=== PATIENT | female | born 1985 | race Caucasian/White ===

== ENCOUNTER 2023-11-06 13:48 | Inpatient (IN) | payer OTHER, SELFPAY ==
[2023-11-05 08:28] VITALS: BP 156/94
--- NOTE | 2023-11-05 08:42 | ED.GENMED ---
History of Present Illness
<Eloise Chaves PUPPET MAKER - Last Filed: 11/05/23 17:34>
General
Chief Complaint: Abdominal Symptoms
Source: patient
Exam Limitations: none
Time Seen by Provider: 11/05/23 08:42
Nursing documentation reviewed up to this point in time: agreed with
Travel History
Have you had any contact with someone who has COVID-19?: No
Do you have any symptoms of coronavirus? Fever > 100 degrees, chills, cough, shortness of breath, sore throat, loss of taste or smell, muscle aches, or headache?: No
History of Present Illness
History of Present Illness:
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
diarrhea past 2 days. Diarrhea has subsided but n/v persists.
She has been unable to hold anything down except two small 'Rapid Rehydration' Gatorade fluid last p.m.
Last emesis 45 min ago
Last diarrhea 2 days ago.
Patient denies fever or chills. Denies abdominal pain. Denies chest pain or trouble breathing.
[employer] RECRUITER was 271
Past History
<Eloise Chaves PUPPET MAKER - Last Filed: 11/05/23 17:34>
Past History
ED Past Medical History: Asthma, IDDM, Psychiatric and Other (Stopped Methadone 2 years ago, denies illicit drug use)
Patient has exhibited threatening behavior?: Yes
Date of threatening behavior? (updated with each occurrence): 07/17/19 (making threats to staff and police)
Social History
Tobacco: Non-smoker
Alcohol: None
Drug: Former user
Personal: Single
Living: with family
Employment: Not employed
Review of Systems
<Eloise V. Day, PUPPET MAKER - Last Filed: 11/05/23 17:34>
Review of Systems
Allergies reviewed?: Yes
All Other Systems: ROS reviewed and negative except as documented in HPI and ROS
Constitutional: Denies fever
Respiratory: Denies cough or trouble breathing
Cardiac: Denies chest pain
ABD/GI: Reports nausea, vomiting, diarrhea and anorexia; Denies abdominal pain, bloody stools or black stools
: Reports other (currently menstruating so urine is pink tinged); Denies dysuria, flank pain, difficulty voiding or urgency
Musculoskeletal: Reports no symptoms
Skin: Reports no symptoms
Neurological: Reports no symptoms
Phy Exam
<Eloise Chaves, PUPPET MAKER - Last Filed: 11/05/23 17:34>
Physical Exam
Physical Exam:
GENERAL: No acute distress. A&Ox3.
CONSTITUTIONAL: Afebrile.
EYES:Clear, conjunctivae normal
ENMT: moist mucus membranes, Pharynx nl
RESPIRATORY: Regular respirations, nonlabored, lungs clear.
CARDIOVASCULAR: Regular rate and rhythm, tachycardia Rate 116, no murmurs, no rubs.
GI: Soft, nontender, normal BS
MUSCULOSKELETAL: Moves with ease. Well perfused. Ambulating well independently
SKIN: Warm, dry, pink
PSYCH: Normal mood and affect. Well kept, interactive and appropriate
NEUROLOGIC: Awake, alert and oriented. No focal neurological deficits.
Course
<Eliose Chaves, PUPPET MAKER - Last Filed: 11/05/23 17:34>
Orders/Labs/Results
Orders:
Orders
11/05/23 08:54
Bedside Glucose- Treatment Q1H
IV Insert/Care/Rem.- Treatment PRN
0.9% Sodium Chloride 1000 ml [Nss] 1,000 ml IV BOLUS
0.9% Sodium Chloride 1000 ml [Nss] 1,000 ml IV BOLUS
11/05/23 08:56
Ondansetron Injectable [Zofran] 4 mg IV NOW STA
11/05/23 09:25
Complete Blood Count/With Diff Urgent
Urinalysis Urgent
Date Specimen was Collected: 11/05/23
Time Specimen was Collected: 09:16
Urine Microscopic Urgent
Date Specimen was Collected: 11/05/23
Time Specimen was Collected: 09:16
11/05/23 09:26
Comprehensive Metabolic Panel Urgent
HCG, Serum Qualitative Screen Urgent
Comment: ADD ON
11/05/23 09:29
Add On- LAB Urgent
Tests Added?: serum qualitative HCG
11/05/23 09:35
Lorazepam [Ativan] 1 mg IV NOW STA
11/05/23 10:37
0.9% Sodium Chloride 1000 ml [Nss] 1,500 ml IV NOW STA
Diphenhydramine [Benadryl] 12.5 mg IV NOW STA
Prochlorperazine [Compazine] 10 mg IV NOW STA
11/05/23 11:04
POTASSIUM PHOSPHATE 1mEq=0.7mM [Potassium Phosphate] 20 meq 0.9% Sodium Chloride 250 ml [Nss] 250 ml IV NOW
11/05/23 17:15
C difficile Antigen & Toxins Urgent
NGOZI Source: Feces/Stool
Specimen Description:
Date Specimen was Collected: 11/05/23
Time Specimen was Collected: 17:13
Stool Culture Routine
NGOZI Source: Feces/Stool
Specimen Description:
Date Specimen was Collected: 11/05/23
Time Specimen was Collected: 17:13
11/05/23 17:29
Add On- LAB Urgent
Tests Added?: stool WBC, stool norovirus
Abnormal Lab Results
11/05/23 11/05/23 11/05/23
09: 09:26 12:55
WBC 18.4 H 10^3/uL
(4.8-10.8)
MCH 31.7 H pg
(27.0-31.0)
Abs Immat Gran (auto) 0.1 H 10^3/uL
(0-0.05)
Absolute Neuts (auto) 15.6 H 10^3/uL
(1.4-6.5)
Absolute Monos (auto) 1.2 H 10^3/uL
(0.1-0.6)
Immature Gran % 0.7 H %
(0-0.5)
Neutrophils % 84.5 H %
(42.2-75.2)
Lymphocytes % 7.8 L %
(20.5-51.1)
Potassium 3.3 L mmol/L
(3.5-5.1)
Chloride 97 L mmol/L
(98-107)
BUN 27 H mg/dl
(7-17)
Glucose 251 H mg/dl
(70-99)
Urine Ketones Trace A
(Negative)
Urine Occult Blood 4+ A
(Negative)
Urine Bilirubin 1+ A
(Negative)
Ur Leukocyte Esterase Trace A
(Negative)
Urine RBC >100 A /HPF
(0-2)
Urine Bacteria Moderate A
(Negative)
Urine Glucose 1+ A
(Negative)
Urine Albumin 2+ A
(Neg - Trace)
POC Glucose 147 H mg/dl
(70-99)
11/05/23 09:25
11/05/23 09:26
Vital Signs
Initial and Last Documented VS:
Initial Vital Signs
Temp Pulse Resp BP Pulse Ox
98.2 F 115 18 156/94 96
11/05/23 08:28 11/05/23 08:28 11/05/23 08:28 11/05/23 08:28 11/05/23 08:28
Last Documented Vital Signs
Temp Pulse Resp BP Pulse Ox
98.2 F 110 16 154/71 98
11/05/23 08:28 11/05/23 16:40 11/05/23 16:40 11/05/23 16:40 11/05/23 16:40
General Operations Agent consulted with Physician
General Operations Agent consulted with physician?: Yes
Name of Physician Consulted: Ilya
<Nicholas Caraballo, - Last Filed: 11/05/23 11:56>
Orders/Labs/Results
Orders:
Orders
11/05/23 08:54
Bedside Glucose- Treatment Q1H
IV Insert/Care/Rem.- Treatment PRN
0.9% Sodium Chloride 1000 ml [Nss] 1,000 ml IV BOLUS
0.9% Sodium Chloride 1000 ml [Nss] 1,000 ml IV BOLUS
11/05/23 08:56
Ondansetron Injectable [Zofran] 4 mg IV NOW STA
11/05/23 09:25
Complete Blood Count/With Diff Urgent
Urinalysis Urgent
Date Specimen was Collected: 11/05/23
Time Specimen was Collected: 09:16
Urine Microscopic Urgent
Date Specimen was Collected: 11/05/23
Time Specimen was Collected: 09:16
11/05/23 09:26
Comprehensive Metabolic Panel Urgent
HCG, Serum Qualitative Screen Urgent
Comment: ADD ON
11/05/23 09:29
Add On- LAB Urgent
Tests Added?: serum qualitative HCG
11/05/23 09:35
Lorazepam [Ativan] 1 mg IV NOW STA
11/05/23 10:37
0.9% Sodium Chloride 1000 ml [Nss] 1,500 ml IV NOW STA
Diphenhydramine [Benadryl] 12.5 mg IV NOW STA
Prochlorperazine [Compazine] 10 mg IV NOW STA
11/05/23 11:04
POTASSIUM PHOSPHATE 1mEq=0.7mM [Potassium Phosphate] 20 meq 0.9% Sodium Chloride 250 ml [Nss] 250 ml IV NOW
11/05/23 17:15
C difficile Antigen & Toxins Urgent
NGOZI Source: Feces/Stool
Specimen Description:
Date Specimen was Collected: 11/05/23
Time Specimen was Collected: 17:13
Stool Culture Routine
NGOZI Source: Feces/Stool
Specimen Description:
Date Specimen was Collected: 11/05/23
Time Specimen was Collected: 17:13
11/05/23 17:29
Add On- LAB Urgent
Tests Added?: stool WBC, stool norovirus
Abnormal Lab Results
11/05/23 11/05/23 11/05/23
09:25 09:26 12:55
WBC 18.4 H 10^3/uL
(4.8-10.8)
MCH 31.7 H pg
(27.0-31.0)
Abs Immat Gran (auto) 0.1 H 10^3/uL
(0-0.05)
Absolute Neuts (auto) 15.6 H 10^3/uL
(1.4-6.5)
Absolute Monos (auto) 1.2 H 10^3/uL
(0.1-0.6)
Immature Gran % 0.7 H %
(0-0.5)
Neutrophils % 84.5 H %
(42.2-75.2)
Lymphocytes % 7.8 L %
(20.5-51.1)
Potassium 3.3 L mmol/L
(3.5-5.1)
Chloride 97 L mmol/L
(98-107)
BUN 27 H mg/dl
(7-17)
Glucose 251 H mg/dl
(70-99)
Urine Ketones Trace A
(Negative)
Urine Occult Blood 4+ A
(Negative)
Urine Bilirubin 1+ A
(Negative)
Ur Leukocyte Esterase Trace A
(Negative)
Urine RBC >100 A /HPF
(0-2)
Urine Bacteria Moderate A
(Negative)
Urine Glucose 1+ A
(Negative)
Urine Albumin 2+ A
(Neg - Trace)
POC Glucose 147 H mg/dl
(70-99)
11/05/23 09:25
11/05/23 09:26
Vital Signs
Initial and Last Documented VS:
Initial Vital Signs
Temp Pulse Resp BP Pulse Ox
98.2 F 115 18 156/94 96
11/05/23 08:28 11/05/23 08:28 11/05/23 08:28 11/05/23 08:28 11/05/23 08:28
Last Documented Vital Signs
Temp Pulse Resp BP Pulse Ox
98.2 F 110 16 154/71 98
11/05/23 08:28 11/05/23 16:40 11/05/23 16:40 11/05/23 16:40 11/05/23 16:40
<Eloise Chaves PUPPET MAKER - Last Filed: 11/05/23 17:34>
MDM/Problems Addressed
Differential Diagnosis Includes:
Gastroenteritis, DKA, dehydration
MDM/Problems Addressed:
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
diarrhea past 2 days. Diarrhea has subsided but n/v persists.
She has been unable to hold anything down except two small 'Rapid Rehydration' Gatorade fluid last p.m.
Last emesis 45 min ago
Last diarrhea 2 days ago.
Patient denies fever or chills. Denies abdominal pain. Denies chest pain or trouble breathing.
[employer] MANAG[employer] RECRUITER was 271
11/05/2023 1014 AM
CBC: WBC 18.4
CMP: BUN 27, glucose 251, IV fluids infusing most likely fluid depleted and reactive to vomiting
hCG negative
UA with greater than 100 red blood cells, patient currently menstruating, no sign of infection
11/05/2023 1022 AM
In to reevaluate pt. Pt getting chills. Temp 99.2. Remains nauseous, no further vomiting. OOB and ambulated to with steady gait.
Has had 2L IVFs so far. Her glucometer reading BS [address] Caraballo who evaluated pt.
Another 1500 ml IVFs ordered, Compazine and Benadryl ordered
Will continue to observe
11/05/2023 1306 PM
Patient still unable to hold anything down, continues with intermittent vomiting
Plan: Admit: Gastroenteritis, dehydration intractable nausea and vomiting, in diabetic patient.
Hospitalist notified of admission.
<Eloise Chaves, PUPPET MAKER - Last Filed: 11/05/23 17:34>
*Critical Care Note
Total Time (30-74mins, 75-104mins- exclusive of procedures): Not Applicable
ED Attending Note
<Eloise Chaves, PUPPET MAKER - Last Filed: 11/05/23 17:34>
-
Portions of this chart may have been created with voice recognition software.� Occasional wrong word or��sound alike� substitutions may have occurred due to the inherent limitations of voice recognition software.
<Nicholas Caraballo DO - Last Filed: 11/05/23 11:56>
ED Attending Note
Patient seen and examined by attending physician: Yes
I performed the substantive portion of visit, reviewed & personally made and approve the management plan that is documented in note by myself or ERIC.: Yes
ED Attending Note:
Patient is a 38-year-old female who presents to the emergency department nausea, vomiting and diarrhea that started 2 nights ago. Patient's had about 5 episodes of liquidy stool but no hematochezia or mucus. Patient just returned from [place].
Patient has no abdominal pain but persistent nausea and vomiting. Patient is very thirsty. Patient is a diabetic after having an episode of gestational diabetes. Patient takes insulin only. Patient admits to fever and chills. Patient denies
nasal congestion or cough. Patient denies symptoms. Physical exam the patient looks in significant distress with dry mucous membranes. Heart is regular lungs are clear. Abdomen has very vague mild tenderness without guarding or rebound.
Extremities show no cyanosis or edema. Goal will be to rehydrate the patient. Believe this to be a gastroenteritis. More vomiting than diarrhea. Patient does not appear to be acidotic but does have a significant white count. If the patient is
nausea and vomiting cannot be controlled we will need to admit the patient.
Discharge Plan
Departure
Patient Disposition: Admit
Date of Disposition: 11/05/23
Time of Disposition: 13:06
Admit to: Med/Surg
Presentation/result/management discussed w/ accepting MD/DO: Hospitalist
Condition: Fair
Discharge Problem:
Intractable nausea and vomiting, Diabetes mellitus, insulin dependent (IDDM), controlled, Gastroenteritis
Prescriptions:
No Action
Motegrity 2 mg Tablet
2 mg PO DAILY
Patient Comments:
11/05/2023, per pt., took this med. this morning but believes to have thrown it up.
atorvastatin 10 mg Tablet
10 mg PO DAILY
Patient Comments:
11/05/2023, per pt., took this med. this morning but believes to have thrown it up.
insulin aspart U-100 100 unit/mL Solution
0 unit SC .VIA PUMP
Patient Comments:
11/05/2023, per pt., she puts 200 units into her pump and replaces it every 2-3 days. Pt. states to have changed her pump roughly 1-2 days ago and says that the pod expires tomorrow.
albuterol sulfate [Ventolin HFA] 90 mcg/actuation Hfa Aerosol Inhaler
2 puff INHALATION R Q4HPRN PRN (Reason: sob)
pregabalin 150 mg Capsule
150 mg PO BID
Patient Comments:
11/05/2023, per pt., took this med. this morning but believes to have thrown it up.
cholecalciferol (vitamin D3) 125 mcg (5,000 unit) Tablet
125 mcg PO DAILY
Patient Comments:
11/05/2023, per pt., took this vitamin this morning but believes to have thrown it up.
melatonin 10 mg Tablet Extended Release
10 mg PO HSPRN PRN (Reason: sleep)
Abilify Maintena 400 mg suspension,extended rel syring
400 mg IM Q3W
Patient Comments:
11/05/2023, per pt., next dose is scheduled for tomorrow.
Medical Marijuana
0 inh inhalation BIDPRN PRN (Reason: mild pain/sleep/anxiety)
Patient Comments:
11/05/2023, pt. smokes flower form BIDPRN for anxiety, mild pain, and sleep. Pt. states that she smokes a 'blunt' and is unsure of the amount of puffs she takes per use.
Referrals:
Josephine Mcdowell CRNP [Family Provider] -
Interventions
Interventions:
*Risk Screen - Suicide Last Done: 11/05/23 09:12
*General Assessment Last Done: 11/05/23 09:12
*Neglect/Abuse Screening Last Done: 11/05/23 09:12
ED- Fall Risk Assessment Last Done: 11/05/23 09:12
*ED COVID-19 Vaccine History Last Done: 11/05/23 08:28
AC-Rvxzrh-Ihwfrhcrop Assessment Last Done: 11/05/23 09:12
[2023-11-05] MEDS: NSS 1000 IV ×3 (09:33→19:44)
[2023-11-05] MEDS: ZOFRAN 4 MG IV ×2 (09:34→19:47)
[2023-11-05] MEDS: ATIVAN 1 MG IV (09:39)
[2023-11-05 09:48] LABS: Urine Albumin 2+ (Neg - Trace); Urine Bilirubin 1+ (Negative); Urine Character Slightly Cloudy (Clear); Urine Color Amber; Urine Glucose 1+ (Negative); Urine Ketone Trace (Negative); Urine Leukocyte Trace (Negative); Urine Nitrite Negative (Negative); Urine Occult Blood 4+ (Negative); Urine Urobilinogen Negative (Neg - 1+)
[2023-11-05 09:59] LABS: % Basophils 0.2 % (0-2); % Eosinophils 0.1 % (0-6); % Immature Granulocytes 0.7 % (0-0.5); % Lymphocytes 7.8 % (20.5-51.1); % Monocytes 6.7 % (1.7-9.3); % Neutrophils 84.5 % (42.2-75.2); Absolute Immature Granulocytes 0.1 10^3/uL (0-0.05); Absolute Lymphocytes 1.4 10^3/uL (1.2-3.4); Absolute Monocytes 1.2 10^3/uL (0.1-0.6); Absolute Neutrophils 15.6 10^3/uL (1.4-6.5); Hematocrit 39.6 % (37.0-47.0); Hemoglobin 14.2 g/dL (12.0-16.0); Mean Corp Hgb Conc. 35.9 g/dL (33.0-37.0); Mean Corpuscular Hgb 31.7 pg (27.0-31.0); Mean Corpuscular Volume 88.4 fL (81.0-99.0); Mean Platelet Volume 10.3 fL (7.4-10.4); Nucleated Red Blood Cells % 0 %; Platelet Count 300 10^3/uL (130-400); Red Blood Cell Count 4.48 10^6/uL (4.20-5.40); White Blood Cell Count 18.4 10^3/uL (4.8-10.8)
[2023-11-05 10:00] LABS: ALT (SGPT) 35 U/L (0-35); AST (SGOT) 36 U/L (14-36); Albumin 4.6 g/dl (3.5-5.0); Alkaline Phosphatase 99 U/L (38-126); Blood Urea Nitrogen 27 mg/dl (7-17); Calcium 9.9 mg/dl (8.4-10.2); Carbon Dioxide 30 mmol/L (22-30); Chloride 97 mmol/L (98-107); Glucose 251 mg/dl (70-99); Potassium 3.3 mmol/L (3.5-5.1); Sodium 136 mmol/L (135-145); Total Bilirubin 1.2 mg/dl (0.2-1.3); Total Protein 7.4 g/dl (6.3-8.2); eGFR > 60.00
[2023-11-05 10:02] LABS: Urine Squamous Cell 16-20 /LPF (Few)
[2023-11-05 10:04] LABS: Urine Bacteria Moderate (Negative); Urine Red Blood Cell >100 /HPF (0-2)
[2023-11-05 10:04] LABS: HCG, Serum Qualitative Screen Negative
[2023-11-05] MEDS: NSS 1500 ML IV (11:12)
[2023-11-05] MEDS: COMPAZINE 10 MG IV ×2 (11:13→18:22)
[2023-11-05] MEDS: BENADRYL 12.5 MG IV (11:13)
[2023-11-05] MEDS: POTASSIUM PHOSPHATE 254.545500000000004 MEQ IV (11:49)
[2023-11-05 12:32] VITALS: BP 146/87
[2023-11-05 12:56] LABS: Glucose - Point of Care 147 mg/dl (70-99)
[2023-11-05 16:40] VITALS: BP 154/71
--- NOTE | 2023-11-05 18:05 | HPS.HSE ---
Addendum entered and electronically signed by Jr Calloway MD 11/05/23 20:35:
I independently saw and examined the patient on November 05, 2023..
The MAUREEN's note was reviewed and I agree with the note.
Comment:
38yo F with a past medical history of Asthma, IDDM, DKA, Gestational Diabetes Mellitus, [place]'s Syndrome (follows Dr. Regulo Mcdowell at [facility]), Hyperlipidemia, Irritable Bowel Syndrome, history of marijuana use, Anxiety and Bipolar
Disorder who presented to the emergency department c/o intractable nausea, vomiting and non-bloody diarrhea for a few days. She states she began experiencing diarrhea few days to maybe a week ago, then diarrhea stopped for 2 days (and once today),
and then had vomiting starting 2 days ago. She recently was in the [facility]; she reported [place] and states three other women came in to do the same while she was in there. She states that she had diarrhea
the first day but has only had diarrhea once today and states it has mostly resolved. However, the nausea and vomiting has persisted. She states she felt feverish, but did not take her temperature. She admits to experiencing something similar last
February 2023 as a result of DKA but states it was not to this degree. She admits to medical cannabis use and states that she had not been using cannabis since the onset of her symptoms as she felt unwell.
Vital Signs
Afebrile
Tachycardic
BP okay
RR okay
Oxygen saturation 98% on room air
Physical Exam
General: Comfortable and Conversant
HEENT: Normocephalic, Atraumatic
Respiratory: Clear and Non Labored Respirations Bilaterally
Cardiac: S1/S2 and Regular Rhythm
GI: Soft and Non Tender. Positive bowel sounds
Skin: Warm and Dry
Neuro: Awake, Alert, Oriented and Nonfocal/grossly intact
Psych: Calm
Assessment/Plan
Nausea, Vomiting and Diarrhea
Concern for Gastroenteritis
Tachycardia
-Check stool studies, norovirus, c diff, giardia and cryptosporidium
-Continue IVFs
-Allow clear liquids by mouth
-Continue anti-emetics
-Check EKG for QTc interval and tachycardia
-Tachycardia likely from dehydration and poor oral intake recently/acute illness
-Hold home Motegrity
Hypokalemia, secondary to GI loses
-Replace potassium
-Recheck level in AM
-Check magnesium
Insulin-Dependent Diabetes Mellitus
History of Diabetic Ketoacidosis
History of Gestational Diabetes Mellitus
-Continue insulin pump with continuous glucose monitor
-Accuchecks
Neuropathy
-Continue Lyrica
Bipolar Disorder
Anxiety
-Patient receives monthly Abilify injections
Hyperlipidemia
-Hold statin until able to tolerate food
Asthma - continue home breathing treatments as needed
[place]'s Syndrome (follows Dr. Regulo Mcdowell at [facility])
Irritable Bowel Syndrome
History of medical marijuana use
DVT Prophylaxis: SCDs
Code Status: Full Code
Original Note:
Family Physician
-
Family Physician: FAITH Lott
Chief Complaint
-
Nausea and Vomiting
History of Present Illness
Pt is a 38yo F with a past medical history of IDDM and Bipolar Disorder who is presenting to the ED c/o intractable nausea, vomiting and non-bloody diarrhea x 2 days. She states she began experiencing diarrhea and vomiting 2 days ago. She reports
[place] and states three other women came in to do the same while she was in there. She states that she had diarrhea the first day but has only had diarrhea once today and states it has mostly resolved. However, the
nausea and vomiting has persisted. She states she felt feverish, but did not take her temperature. She admits to experiencing something similar last February 2023 as a result of DKA but states it was not to this degree. She admits to medical cannabis
use and states that she had not been using cannabis since the onset of her symptoms as she felt unwell.
Medical History
Past Medical History
Past Medical History: Reports Other
Additional Past Medical History:
Diabetes Mellitus, Insulin Dependent
Neuropathy
Hyperlipidemia
Bipolar Disorder
Asthma
Hx Opioid Use Disorder
Past Surgical History: Reports None
Social History
Tobacco: Non-smoker
Alcohol: None
Drug: Former User (Prior heroin abuse, previously on methadone) and Marijuana (Medical )
Family History
Family History: Not pertinent
Allergies / Home Medications
Allergies reflects when Allergies were last updated in [facility].
Home Medications with original date entered in [facility]
Allergy/Medication List:
Allergies
Allergy/AdvReac Type Severity Reaction Status Date / Time
bupropion [From Wellbutrin] Allergy Rash Verified 11/05/23 08:30
montelukast [From Singulair] Allergy Rash Verified 11/05/23 08:30
Home Medications
prucalopride 2 mg tablet (Motegrity) 2 mg PO DAILY Gastrointestinal Issue 02/19/23
Medical Marijuana 0 inh inhalation BIDPRN PRN mild pain/sleep/anxiety 11/05/23
albuterol sulfate 90 mcg/actuation aerosol inhaler (Ventolin HFA) 2 puff inhalation R Q4HPRN PRN sob 11/05/23
aripiprazole 400 mg suspension, extended rel.intramuscular syringe (Abilify Maintena) 400 mg IM Q3W Mental Health/Anxiety 11/05/23
atorvastatin 10 mg tablet 10 mg PO DAILY High Cholesterol 11/05/23
cholecalciferol (vitamin D3) 125 mcg (5,000 unit) tablet 125 mcg PO DAILY Supplement 11/05/23
insulin aspart U-100 100 unit/mL subcutaneous solution 0 unit SC .VIA PUMP Diabetes 11/05/23
melatonin 10 mg tablet,extended release 10 mg PO HSPRN PRN sleep 11/05/23
pregabalin 150 mg capsule 150 mg PO BID Pain 11/05/23
Review of Systems
-
A 12 point ROS was completed and negative except as noted: Yes
Constitutional: Reports Fever
Respiratory: Denies Cough or Trouble Breathing
Abdomen/GI: Reports See HPI
Physical Exam
Vital Signs
Vital Signs
Temp Pulse Resp BP Pulse Ox
98.2 F 110 16 154/71 98
11/05/23 08:28 11/05/23 16:40 11/05/23 16:40 11/05/23 16:40 11/05/23 16:40
Physical Exam
General: Comfortable and Conversant
HEENT: NormoCephalic, Anicteric and Atraumatic
Respiratory: Clear and Non Labored Respirations
Cardiac: S1/S2 and Regular Rhythm
GI: Soft and Non Tender
Rectal: Deferred by Provider
Skin: Warm and Dry
Neuro: Awake, Alert, Oriented and Nonfocal/grossly intact
Psych: Calm
Laboratory Results
-
11/05/23 09:25
11/05/23 09:26
Laboratory Results
Total Bilirubin 1.2 mg/dl (0.2-1.3) 11/05/23 09:26
AST 36 U/L (14-36) 11/05/23 09:26
ALT 35 U/L (0-35) 11/05/23 09:26
Alkaline Phosphatase 99 U/L (38-126) 11/05/23 09:26
Data Reviewed
-
Lab Data: Labs Reviewed by me
Impression/Plan
-
Gastroenteritis
-Check stool studies, norovirus, c diff, giardia and cryptosporidium
-Continue IVFs
-Allow clear liquids
-Continue anti-emetics
Hypokalemia, secondary to GI loses
-Replace potassium
-Recheck level in AM
Insulin-Dependent Diabetes Mellitus
-Continue insulin pump with continuous glucose monitor
Neuropathy
-Continue Lyrica
Bipolar Disorder
-Patient receives monthly Abilify injections
Hyperlipidemia
-Hold statin until able to tolerate food
DVT proph: SCDs
Code Status: Full Code
[2023-11-05 18:57] LABS: Amphetamines Negative (Negative); Barbiturates Negative (Negative); Benzodiazepines Negative (Negative); Buprenorphine Negative (Negative); Cocaine Negative (Negative); Marijuana Positive (Negative); Methadone Negative (Negative); Methamphetamines Negative (Negative); Opiates Negative (Negative); Phencyclidine Negative (Negative); Tricyclic Antidepressants Negative (Negative)
[2023-11-05 18:58] LABS: COVID-19 Antigen Negative (Negative)
[2023-11-05 19:28] VITALS: BMI 28.9
[2023-11-05 19:30] VITALS: BP 138/82
[2023-11-05] MEDS: NSS (PRESERVATIVE FREE) 10 ML IV (19:47)
[2023-11-05] MEDS: PROTONIX IV 40 MG IV (19:48)
[2023-11-05] MEDS: BENADRYL 6.25 MG IV (21:10)
[2023-11-05 21:11] LABS: Glucose - Point of Care 150 mg/dl (70-99)
[2023-11-05 23:00] VITALS: BP 165/94
[2023-11-05] MEDS: COMPAZINE 5 MG IV (23:02)
[2023-11-05] MEDS: MORPHINE SULFATE 1 MG IV (23:03)
[2023-11-05] MEDS: LYRICA PO (23:13)
[2023-11-06] VITALS (7 sets, daily range): BP systolic 133–177; BP diastolic 76–98
[2023-11-06] MEDS: NSS 1000 IV ×3 (03:30→22:27)
[2023-11-06] MEDS: ZOFRAN 4 MG IV ×2 (03:34→09:30)
--- NOTE | 2023-11-06 04:28 | PTCARENOTE ---
Patient recieved in bed from ED at 1929. Patient nauseous and vomiting, medicated per NOV. Pt oriented to room and call kee
[2023-11-06 07:20] LABS: Glucose - Point of Care 162 mg/dl (70-99)
[2023-11-06 07:25] LABS: Hematocrit 36.4 % (37.0-47.0); Hemoglobin 13.5 g/dL (12.0-16.0); Mean Corp Hgb Conc. 37.1 g/dL (33.0-37.0); Mean Corpuscular Hgb 33.1 pg (27.0-31.0); Mean Corpuscular Volume 89.2 fL (81.0-99.0); Mean Platelet Volume 10.2 fL (7.4-10.4); Platelet Count 271 10^3/uL (130-400); Red Blood Cell Count 4.08 10^6/uL (4.20-5.40); Red Cell Dist. Width 11.8 % (11.5-14.5); White Blood Cell Count 10.1 10^3/uL (4.8-10.8)
[2023-11-06 07:47] LABS: Chloride 102 mmol/L (98-107); Potassium 3.5 mmol/L (3.5-5.1); Sodium 136 mmol/L (135-145)
[2023-11-06 07:58] LABS: Blood Urea Nitrogen 13 mg/dl (7-17); Calcium 8.5 mg/dl (8.4-10.2); Carbon Dioxide 23 mmol/L (22-30); Estimated Creatinine Clearance > 125 ml/min; Glucose 145 mg/dl (70-99); Magnesium 1.9 mg/dl (1.6-2.3); eGFR > 60.00
[2023-11-06] MEDS: NSS (PRESERVATIVE FREE) 10 ML IV (08:21)
[2023-11-06] MEDS: LYRICA 150 MG PO ×2 (08:21→20:21)
[2023-11-06] MEDS: PROTONIX IV 40 MG IV (08:21)
[2023-11-06 08:56] LABS: Glycohemoglobin (HgbA1c) 9.3 % (4.0-5.6)
--- NOTE | 2023-11-06 09:51 | W.PN.HOSP.TC ---
Today's Communication/Plan
-
Still with significant nausea
Consulted GI, recommendations appreciated
Consulted psychiatry for patient's severe anxiety, recommendations appreciated
Assessment / Plan
Assessment / Plan
Physical Exam
General: Comfortable and Conversant
HEENT: Normocephalic, Atraumatic
Respiratory: Clear and Non Labored Respirations Bilaterally
Cardiac: S1/S2 and Regular Rhythm
GI: Soft and Non Tender. Positive bowel sounds
Skin: Warm and Dry
Neuro: Awake, Alert, Oriented and Nonfocal/grossly intact
Psych: Calm
Assessment/Plan
Nausea, Vomiting and Diarrhea
Concern for Gastroenteritis
Tachycardia
-Follow stool studies, norovirus, c diff, giardia and cryptosporidium
-Continue IVFs
-Allow clear liquids by mouth
-Continue anti-emetics
-Check EKG for QTc interval: QTc is 442
-Tachycardia likely from dehydration and poor oral intake recently/acute illness
-Hold home Motegrity
-Consulted GI, recommendations appreciated
Hypokalemia, secondary to GI loses
-Replaced potassium
-Recheck level in AM
-Monitor magnesium
Insulin-Dependent Diabetes Mellitus on Insulin Pump
History of Diabetic Ketoacidosis
History of Gestational Diabetes Mellitus
-Consulted Diabetes [employer]PERVISOR MILL, recommendations appreciated
-Accuchecks
Neuropathy
-Continue Lyrica
Bipolar Disorder
Anxiety
-Patient receives monthly Abilify injections
-Consulted psychiatry, recommendations appreciated
Hyperlipidemia
-Hold statin until able to tolerate food
Asthma - continue home breathing treatments as needed
[place]'s Syndrome (follows Dr. Regulo Mcdowell at [place] [facility])
Irritable Bowel Syndrome
History of medical marijuana use
DVT Prophylaxis: SCDs
Code Status: Full Code
Anticipated Discharge: 24 - 48 hours
Subjective/Interval History
-
Date of Service: November 06, 2023
Patient was seen and examined. Per patient's nurse, patient had an episode of severe anxiety this morning. Patient continues to have significant nausea but no diarrhea overnight.
Objective Data
-
Labs:
Laboratory Results
11/06/23
06:49
WBC 10.1
Hgb 13.5
Hct 36.4 L
Plt Count 271
Sodium 136
Potassium 3.5
Chloride 102
Carbon Dioxide 23
BUN 13
Creatinine 0.5 L
Glucose 145 H
Calcium 8.5
Vital Signs:
Vital Signs
Temp Pulse Resp BP Pulse Ox
98.2 F 90 18 133/83 99
11/06/23 08:13 11/06/23 08:13 11/06/23 08:13 11/06/23 08:13 11/06/23 08:13
I&O
11/05/23 11/06/23 11/07/23
06:59 06:59 06:59
Intake Total 2640 / 2640
Output Total 250 / 250
Balance 2390 / 2390
[2023-11-06] MEDS: COMPAZINE 5 MG IV ×2 (10:50→20:23)
--- NOTE | 2023-11-06 11:15 | PN.DE.MGMTRT ---
Insulin Management
- -
11/06/2023 Diabetes Management Consult
Patient admitted with N/V/D for 2 days. PMH asthma, neuropathy, type 1 diabetes, bipolar, panic disorder, PTSD, borderline personality disorder, cushings synd. Prior to admission was using Omni Pod 5 with novolog and DexCom G6. Pod has run out
of insulin, patient does not have additional pod. A1C on admission 9.3%, cr .5, egfr > 60. Currently not taking anything PO.
POD from our office not compatible. Will start lantus 35 units now and daily with moderate corrective insulin Q 6 hours. If patient begins to eat please change to AC.
Diabetes History
- -
Type of Diabetes: 1
Pre-Admission Diabetes Regimen
11/06/23
06:49
Creatinine 0.5 L
Lab Results
Hemoglobin A1c 9.3 % (4.0-5.6) H 11/06/23 06:49
Insulin Pump Settings
IP Diabetes Regimen
11/05/23 11/05/23 11/06/23
12:55 21:10 06:49
Glucose 145 H
POC Glucose 147 H 150 H
11/06/23
07:19
Glucose
POC Glucose 162 H
Patient Education
[2023-11-06 11:34] LABS: Glucose - Point of Care 201 mg/dl (70-99)
--- NOTE | 2023-11-06 12:46 | PTCARENOTE ---
Patient emotionally labile, tearful stating 'i'm sick of feeling sick' . Has anxiety, needs much TLC. has dry heaves , received iv zofran and then IV Compazine as ordered with some relief. IV NS running at 125cc/hr. Call kee in reach .
[2023-11-06] MEDS: LANTUS 0.349999999999999978 UNITS SC (13:08)
[2023-11-06] MEDS: NOVOLOG FLEXPEN-MODERATE RESISTANCE 3 UNITS SC (13:10)
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
--- NOTE | 2023-11-06 15:40 | CM ---
Patient seen bedside.
IA completed.
Patient lives with patients and son in a multi story home, she is on the 3rd floor.
Patient independent prior to admission without assistive devices.
Patient drives.
Patient with no hx of VN.
Has been inpatient psychiatric in the past.
PCP:Dr Mcdowell
Pharmacy: [facility]
Plan: Home, no needs anticipated.
[2023-11-06] MEDS: ATIVAN 1 MG PO ×2 (15:44→20:21)
--- NOTE | 2023-11-06 15:49 | CON.GI ---
Addendum entered and electronically signed by Demetrio Duran MD 11/06/23 18:37:
I saw and examined the patient.
The PA's note was reviewed and I agree with the note.
Comment:
The patient is a 38 year old female with h/o IDDM (prior DKA), neuropathy, asthma, bipolar disorder, hypercholesterolemia, recently diagnosis benjamin syndrome, IBS,�and marijuana use who p/w nausea, vomiting, and diarrhea. She had recently traveled
to [place]. On admission hbg A1C 9.3 and noted with insulin pump empty.� Pt also noted with anxiety attack with psych evaluation. She also admits to daily Marijuana use.� She does have IBS with chronic constipation on Motegrity. In review of
records hx admission in January 2023 with [facility] with nausea, vomiting, diarrhea, metabolic acidosis and DKA.�
Impression / Rec:
1. Nausea/vomiting, diarrhea - multiple possible etiologies; possible sick contact which would raise concern for gastroenteritis (she admits to eating at resort and being in bathroom when other visitors were vomiting), diabetic gastroparesis (HbA1c
9.3), cannabis hyperemesis syndrome vs other. Agree with supportive mx, antiemetics, optimize glucose control, and advancing diet as tolerated. Will follow.
Original Note:
Consultation
-
Date/Time Consultation Requested: 11/06/23 1445
Date/Time Consultation Performed: 11/06/23 1545
Requesting Provider: Jr Calloway MD
Performing Provider: FAITH Mcclure, Demetrio Duran MD
Reason for Consultation: nausea.vomiting, diarrhea
Medical History
Chief Complaint / HPI
Chief Complaint: nausea/vomiting and diarrhea
History of Present Illness:
Pt is a 38yo with hx IDDM with prior DKA, neuropathy, asthma, bipolar disorder, hypercholesterolemia, recently diagnosis benjamin syndrome, IBS, marijuana use with recent travel to [place] with onset of nausea, vomiting, and diarrhea. Symptoms were
associated with abdominal pain. On admission hbg A1C 9.3 and noted with insulin pump empty. Pt also noted with anxiety attack with psych evaluation. Pt states prior to travel was on antibiotic for UTI. She admits to eating at resort and being in
bathroom when other visitors were vomiting. She began Sunday and returned Sunday with symptoms. No hx prior episodes on past. She also admits to daily Marijuana use.
She denies issues with odynophagia, dysphagia, hematuria, blood or black in stools. She does have IBS with chronic constipation on Motegrity. In review of records hx admission in January 2023 with [facility] with nausea, vomiting, diarrhea, metabolic
acidosis and DKA. There was also concern for marijuana induced hyperemesis. Pt has also had prior anorectal manometry with poor rectal push and increased anal sphincter pressure with pseudodefecation maneuver. was recommended pelvic floor PT and
fiber supplement.
Past Medical History
Past Medical History: Asthma, Hypercholesterolemia, IDDM, Psychiatric (bipolar disorder, PTSD, borderline personality disorder) and Other (neuropathy, benjamin syndrome, IBS)
Social History
Tobacco: Non-Smoker
Alcohol: None
Drug: Former User and Other (prior methadone use several years ago)
Living: With Family (parents and son)
Employment: Not Employed
Family History
Family History: Other (no family hx GI issues )
Allergies / Home Medications
Allergy/AdvReac Type Severity Reaction Status Date / Time
bupropion [From Wellbutrin] Allergy Rash Verified 11/05/23 08:30
montelukast [From Singulair] Allergy Rash Verified 11/05/23 08:30
Medication Instructions Recorded
prucalopride 2 mg tablet 2 mg PO DAILY Gastrointestinal 02/19/23
(Motegrity) Issue
Medical Marijuana 0 inh inhalation BIDPRN PRN mild 11/05/23
pain/sleep/anxiety
albuterol sulfate 90 mcg/actuation 2 puff inhalation R Q4HPRN PRN sob 11/05/23
aerosol inhaler (Ventolin HFA)
aripiprazole 400 mg suspension, 400 mg IM Q3W Mental Health/Anxiety 11/05/23
extended rel.intramuscular syringe
(Eloise Gillis)
atorvastatin 10 mg tablet 10 mg PO DAILY High Cholesterol 11/05/23
cholecalciferol (vitamin D3) 125 125 mcg PO DAILY Supplement 11/05/23
mcg (5,000 unit) tablet
insulin aspart U-100 100 unit/mL 0 unit SC .VIA PUMP Diabetes 11/05/23
subcutaneous solution
melatonin 10 mg tablet,extended 10 mg PO HSPRN PRN sleep 11/05/23
release
pregabalin 150 mg capsule 150 mg PO BID Pain 11/05/23
Review of Systems
-
History Source: Patient
Constitutional: Reports Weight Gain
EENT: Reports No Symptoms
Respiratory: Reports No Symptoms
Cardiac: Reports No Symptoms
Abdomen/GI: Reports Abdominal Pain, Nausea, Vomiting, Diarrhea and Constipated (by history )
: Reports No Symptoms
Musculoskeletal: Reports No Symptoms
Skin: Reports No Symptoms
Neurological: Reports Weakness
Endocrine: Reports No Symptoms
Hematologic/Lymphatic: Reports No Symptoms
Vital Signs
Temp Pulse Resp BP Pulse Ox
98.2 F 78 16 146/76 98
11/06/23 15:18 11/06/23 15:18 11/06/23 15:18 11/06/23 15:18 11/06/23 15:18
Physical Exam
Exam
General: Well Developed, Well Nourished and No Apparent Distress
HEENT: Normocephalic and Anicteric
Respiratory: Clear
Cardiac: Regular Rhythm
GI: Soft, Non Distended and Tender (minimal epigastric pain)
Genito-urinary: No Costovertebral Tender
Musculoskeletal: No Clubbing and No Cyanosis
Skin: Warm and Dry
Neuro: Awake, Alert and AO x 3
Psych: Calm
Results
WBC 10.1 10^3/uL (4.8-10.8) 11/06/23 06:49
Hgb 13.5 g/dL (12.0-16.0) 11/06/23 06:49
Hct 36.4 % (37.0-47.0) L 11/06/23 06:49
MCV 89.2 fL (81.0-99.0) 11/06/23 06:49
Plt Count 271 10^3/uL (130-400) 11/06/23 06:49
Absolute Neuts (auto) 15.6 10^3/uL (1.4-6.5) H 11/05/23 09:25
Sodium 136 mmol/L (135-145) 11/06/23 06:49
Potassium 3.5 mmol/L (3.5-5.1) 11/06/23 06:49
Chloride 102 mmol/L (98-107) 11/06/23 06:49
Carbon Dioxide 23 mmol/L (22-30) 11/06/23 06:49
BUN 13 mg/dl (7-17) 11/06/23 06:49
Creatinine 0.5 mg/dL (0.6-1.0) L 11/06/23 06:49
Calcium 8.5 mg/dl (8.4-10.2) 11/06/23 06:49
Total Bilirubin 1.2 mg/dl (0.2-1.3) 11/05/23 09:26
AST 36 U/L (14-36) 11/05/23 09:26
ALT 35 U/L (0-35) 11/05/23 09:26
Alkaline Phosphatase 99 U/L (38-126) 11/05/23 09:26
Diagnostic Image Results:
01/[address] Abd/pelvis W Iv Cont
IMPRESSION: No definitive acute pathology of the abdomen or pelvis identified. No oral contrast on board. This limits evaluation of bowel. The transverse colon and left colon is not distended. Colitis cannot be excluded.
3 mm appendicolith. No secondary findings to suggest acute appendicitis.
A preliminary report was provided by [facility].
Prior GI Procedures:
EGD: none
Colonoscopy: none
Assessment / Plan
-
Pt is a 38yo with hx IDDM with prior DKA, neuropathy, asthma, bipolar disorder, hypercholesterolemia, recently diagnosis benjamin syndrome, IBS, marijuana use with recent travel to [place] with onset of nausea, vomiting, and diarrhea. Symptoms were
associated with abdominal pain. On admission hbg A1C 9.3 and noted with insulin pump empty. Pt also noted with anxiety attack with psych evaluation. Pt states prior to travel was on antibiotic for UTI. She admits to eating at resort and being in
bathroom when other visitors were vomiting. She began Sunday and returned Sunday with symptoms. No hx prior episodes on past. She also admits to daily Marijuana use. She does have IBS with chronic constipation on Motegrity. In review of
records hx admission in January 2023 with [facility] with nausea, vomiting, diarrhea, metabolic acidosis and DKA. There was also concern for marijuana induced hyperemesis. Pt has also had prior anorectal manometry with poor rectal push and increased anal
sphincter pressure with pseudodefecation maneuver. was recommended pelvic floor PT and fiber supplement.
-nausea/vomiting with abdominal pain
-diarrhea
-recent travel to [place]
-IDDM with hbg A1C 9.3 on admission hx prior DKA
-medical marijuana use
-IBS with constipation on Motegrity
-hx abnormal anal manometry
-recent benjamin syndrome
-recent abx for UTI
-leukocytosis now resolved
other medical problems:
-neuropathy
-asthma
-bipolar disorder
-hypercholesterolemia
-IBS
PLAN:
etiology of symptoms related to acute infectious gastroenteritis with travel to resort in [place], gastroparesis with poorly controlled DM, Marijuana hyperemesis vs other
agree with check stool studies
antiemetics
stressed need for good glucose control
if recurrent symptoms consider formal OP gastric emptying studies
counseled on side effect of nausea/vomiting with marijuana use
clear diet advance as tolerated to low fat, small meals
monitor bowel function was on motegrity prior to admission
OP follow up rescheduled for February with missed appt today in GI office
-
-
Thank you for consultation and allowing me to participate in the patient's care. Please call the [facility] physician during the after hours with any questions or concerns.
[2023-11-06 16:56] LABS: Glucose - Point of Care 151 mg/dl (70-99)
[2023-11-06 17:08] LABS: Glucose - Point of Care 140 mg/dl (70-99)
[2023-11-06] MEDS: NOVOLOG FLEXPEN-MODERATE RESISTANCE SC (17:10)
[2023-11-06] MEDS: MELATONIN 10 MG PO (20:22)
[2023-11-06] MEDS: COGENTIN 0.5 MG PO (20:22)
[2023-11-06 21:49] LABS: Glucose - Point of Care 148 mg/dl (70-99)
[2023-11-07 03:25] VITALS: BP 173/103
[2023-11-07] MEDS: NSS 1000 IV ×3 (05:24→23:26)
[2023-11-07 06:20] VITALS: BP 148/76
[2023-11-07 07:00] VITALS: BP 152/88
[2023-11-07 07:13] LABS: Glucose - Point of Care 110 mg/dl (70-99)
[2023-11-07 07:58] LABS: % Basophils 0.7 % (0-2); % Eosinophils 0.8 % (0-6); % Immature Granulocytes 0.4 % (0-0.5); % Lymphocytes 21.1 % (20.5-51.1); % Monocytes 6.8 % (1.7-9.3); % Neutrophils 70.2 % (42.2-75.2); Absolute Basophils 0.1 10^3/uL (0-0.2); Absolute Eosinophils 0.1 10^3/uL (0-0.7); Absolute Lymphocytes 2.2 10^3/uL (1.2-3.4); Absolute Monocytes 0.7 10^3/uL (0.1-0.6); Absolute Neutrophils 7.2 10^3/uL (1.4-6.5); Hematocrit 38.2 % (37.0-47.0); Hemoglobin 13.6 g/dL (12.0-16.0); Mean Corp Hgb Conc. 35.6 g/dL (33.0-37.0); Mean Corpuscular Hgb 31.9 pg (27.0-31.0); Mean Corpuscular Volume 89.5 fL (81.0-99.0); Mean Platelet Volume 10.1 fL (7.4-10.4); Nucleated Red Blood Cells % 0 %; Platelet Count 255 10^3/uL (130-400); Red Blood Cell Count 4.27 10^6/uL (4.20-5.40); Red Cell Dist. Width 11.6 % (11.5-14.5); White Blood Cell Count 10.2 10^3/uL (4.8-10.8)
[2023-11-07] MEDS: ATIVAN 1 MG PO ×2 (08:07→20:20)
[2023-11-07] MEDS: LYRICA 150 MG PO ×2 (08:09→20:20)
[2023-11-07] MEDS: COGENTIN 0.5 MG PO ×2 (08:10→20:20)
[2023-11-07] MEDS: NSS (PRESERVATIVE FREE) 10 ML IV (08:12)
[2023-11-07] MEDS: PROTONIX IV 40 MG IV (08:12)
[2023-11-07] MEDS: COMPAZINE 5 MG IV ×2 (08:13→16:41)
[2023-11-07 08:37] LABS: Blood Urea Nitrogen 14 mg/dl (7-17); Calcium 8.7 mg/dl (8.4-10.2); Carbon Dioxide 25 mmol/L (22-30); Chloride 102 mmol/L (98-107); Estimated Creatinine Clearance > 125 ml/min; Glucose 133 mg/dl (70-99); Magnesium 1.9 mg/dl (1.6-2.3); Phosphorus 3.4 mg/dl (2.5-4.5); Potassium 3.4 mmol/L (3.5-5.1); Sodium 136 mmol/L (135-145); eGFR > 60.00
[2023-11-07] MEDS: NOVOLOG FLEXPEN-MODERATE RESISTANCE SC ×2 (09:04→18:04)
[2023-11-07] MEDS: LANTUS 0.349999999999999978 UNITS SC (09:04)
--- NOTE | 2023-11-07 11:38 | W.PN.UPDATE ---
Addendum entered and electronically signed by Porsche Gresham MD 11/07/23 11:44:
called [facility] to order abilify maintenna which they will dispense. called patient 's mother who will picker feeder the abilify maintenna and bring it here to . .
Original Note:
Update Note
Progress Note Update
patient seen chart reviewed. ms bautista was tired and sleepy. she did not want to talk. she did tell me she has not obtained her abilify maintena. i will try to get it from the [facility] pharmacy and call her father to see if he could pick it up. then
it could be sent to our pharmacy and labeled for administration here.
--- NOTE | 2023-11-07 12:34 | PN.DE.MGMTRT ---
Insulin Management
- -
11/06/2023 Diabetes Management Consult
Patient admitted with N/V/D for 2 days. PMH asthma, neuropathy, type 1 diabetes, bipolar, panic disorder, PTSD, borderline personality disorder, cushings synd. Prior to admission was using Omni Pod 5 with novolog and DexCom G6. Pod has run out
of insulin, patient does not have additional pod. A1C on admission 9.3%, cr .5, egfr > 60. Currently not taking anything PO.
POD from our office not compatible. Will start lantus 35 units now and daily with moderate corrective insulin Q 6 hours. If patient begins to eat please change to AC.
11/07/2023 Diabetes Management Follow up
Patient continues with poor po intake. Glucose stable with 35 units lantus in AM with corrective insulin. Will make no change to regimen.
Diabetes History
- -
Type of Diabetes: 1
Pre-Admission Diabetes Regimen
11/07/23
07:37
Creatinine 0.6
Lab Results
Hemoglobin A1c 9.3 % (4.0-5.6) H 11/06/23 06:49
Insulin Pump Settings
IP Diabetes Regimen
11/06/23 11/06/23 11/06/23
16:55 17:07 21:47
Glucose
POC Glucose 151 H 140 H 148 H
11/07/23 11/07/23
07:12 07:37
Glucose 133 H
POC Glucose 110 H
Patient Education
--- NOTE | 2023-11-07 13:06 | W.PN.GI.CBS2 ---
Addendum entered and electronically signed by Demetrio Duran MD 11/07/23 15:45:
I saw and examined the patient.
The PA's note was reviewed and I agree with the note.
Comment:
Pt having difficulty with CLD although she denies vomiting. Will need to optimize gluc control. Continue supportive mx, anti-emetics. Will follow.
Original Note:
Today's Communication / Plan
-
etiology of symptoms related to acute infectious gastroenteritis with travel to resort in [place], gastroparesis with poorly controlled DM, Marijuana hyperemesis though has been using for some time vs other
stool studies neg
compazine working better than zofran
still unable to advance past clear diet
stressed need for good glucose control
if recurrent symptoms consider formal OP gastric emptying studies
I sent message to office to seen if can be seen sooner than February
counseled on side effect of nausea/vomiting with marijuana use
monitor bowel function was on motegrity prior to admission -- some loose stool now no further diarrhea
OP follow up with Endocrine. Due to start treatment for Benjamin syndrome
Assessment / Plan
-
Pt is a 38yo with hx IDDM with prior DKA, neuropathy, asthma, bipolar disorder, hypercholesterolemia, recently diagnosis benjamin syndrome, IBS, marijuana use with recent travel to [place] with onset of nausea, vomiting, and diarrhea. Symptoms were
associated with abdominal pain. On admission hbg A1C 9.3 and noted with insulin pump empty. Pt also noted with anxiety attack with psych evaluation. Pt states prior to travel was on antibiotic for UTI. She admits to eating at resort and being in
bathroom when other visitors were vomiting. She began Sunday and returned Sunday with symptoms. No hx prior episodes on past. She also admits to daily Marijuana use. She does have IBS with chronic constipation on Motegrity. In review of
records hx admission in January 2023 with [facility] with nausea, vomiting, diarrhea, metabolic acidosis and DKA. There was also concern for marijuana induced hyperemesis. Pt has also had prior anorectal manometry with poor rectal push and increased anal
sphincter pressure with pseudodefecation maneuver. was recommended pelvic floor PT and fiber supplement.
-nausea/vomiting with abdominal pain
-diarrhea
-recent travel to [place]
-IDDM with hbg A1C 9.3 on admission hx prior DKA
-medical marijuana use
-IBS with constipation on Motegrity
-hx abnormal anal manometry
-recent benjamin syndrome
-recent abx for UTI
-leukocytosis now resolved
other medical problems:
-neuropathy
-asthma
-bipolar disorder
-hypercholesterolemia
-IBS
PLAN:
etiology of symptoms related to acute infectious [facility] [place], gastroparesis with poorly controlled DM, Marijuana hyperemesis though has been using for some time vs other
stool studies neg
compazine working better than zofran
still unable to advance past clear diet
stressed need for good glucose control
if recurrent symptoms consider formal OP gastric emptying studies
I sent message to office to seen if can be seen sooner than February
counseled on side effect of nausea/vomiting with marijuana use
monitor bowel function was on motegrity prior to admission -- some loose stool now no further diarrhea
OP follow up with Endocrine. Due to start treatment for [place] syndrome
Subjective
Subjective
Date of Service: November 07, 2023
no further diarrhea or vomiting but some dry heaves
Objective
Data Reviewed
Laboratory Data:
Laboratory Results
11/07/23 07:37
11/07/23 07:37
Laboratory Results
Phosphorus 3.4 mg/dl (2.5-4.5) 11/07/23 07:37
Magnesium 1.9 mg/dl (1.6-2.3) 11/07/23 07:37
Total Bilirubin 1.2 mg/dl (0.2-1.3) 11/05/23 09:26
AST 36 U/L (14-36) 11/05/23 09:26
ALT 35 U/L (0-35) 11/05/23 09:26
Alkaline Phosphatase 99 U/L (38-126) 11/05/23 09:26
Vital Signs and I&O:
Vital Signs
Temp Pulse Resp BP Pulse Ox
97.8 F 75 16 152/88 99
11/07/23 07:00 11/07/23 07:00 11/07/23 07:00 11/07/23 07:00 11/07/23 07:00
I&O
11/06/23 11/07/23 11/08/23
06:59 06:59 06:59
Intake Total 2640 / 2640 2465 / 2465
Output Total 250 / 250 1400 / 1400
Balance 2390 / 2390 1065 / 1065
Physical Exam
Physical Exam
HEENT: Anicteric and Moist mucous membranes
Cardiology: Normal Sinus Rhythm
Pulmonary: Clear
GI: Soft, Non Distended and Tender (epigastric pain)
Extremities: No Edema
Neuro: Non Focal
[2023-11-07 13:53] VITALS: BP 148/84
[2023-11-07 13:54] LABS: Glucose - Point of Care 159 mg/dl (70-99)
[2023-11-07] MEDS: NOVOLOG FLEXPEN-MODERATE RESISTANCE 1 UNITS SC (14:13)
[2023-11-07 15:55] VITALS: BP 181/94
[2023-11-07 16:57] LABS: Glucose - Point of Care 138 mg/dl (70-99)
--- NOTE | 2023-11-07 18:54 | W.PN.HOSP.TC ---
Today's Communication/Plan
-
Please see below
GI and psych recommendations appreciated
Assessment / Plan
Assessment / Plan
Physical Exam
General: Comfortable and Conversant
HEENT: Normocephalic, Atraumatic
Respiratory: Clear and Non Labored Respirations Bilaterally
Cardiac: S1/S2 and Regular Rhythm
GI: Soft and Non Tender. Positive bowel sounds
Skin: Warm and Dry
Neuro: Awake, Alert, Oriented and Nonfocal/grossly intact
Psych: Calm
Assessment/Plan
Nausea, Vomiting and Diarrhea
Concern for Gastroenteritis
Tachycardia
-Possibly a component of gastroparesis with poorly controlled DM, Marijuana hyperemesis or gastroenteritis with recent travel to [place]
-Follow stool studies, norovirus, c diff (negative), giardia and cryptosporidium
-Continue IVFs
-Allow clear liquids by mouth
-Continue anti-emetics
-Check EKG for QTc interval: QTc is 442
-Tachycardia likely from dehydration and poor oral intake recently/acute illness
-Hold home Motegrity
-Consulted GI, recommendations appreciated
Hypokalemia, secondary to GI loses
-Replaced potassium
-Recheck level in AM
-Monitor magnesium
Insulin-Dependent Diabetes Mellitus on Insulin Pump
History of Diabetic Ketoacidosis
History of Gestational Diabetes Mellitus
-Consulted Diabetes [employer], recommendations appreciated
-Accuchecks
Neuropathy
-Continue Lyrica
Bipolar Disorder
Anxiety
-Patient receives monthly Abilify injections
-Consulted psychiatry, recommendations appreciated
Hyperlipidemia
-Hold statin until able to tolerate food
Asthma - continue home breathing treatments as needed
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
Irritable Bowel Syndrome
History of medical marijuana use
DVT Prophylaxis: SCDs
Code Status: Full Code
Anticipated Discharge: > 48 hours
Subjective/Interval History
-
Date of Service: November 07, 2023
Patient was seen and examined. She still reports nausea and overall not eating or drinking well.
Objective Data
-
Labs:
Laboratory Results
11/07/23
07:37
WBC 10.2
Hgb 13.6
Hct 38.2
Plt Count 255
Sodium 136
Potassium 3.4 L
Chloride 102
Carbon Dioxide 25
BUN 14
Creatinine 0.6
Glucose 133 H
Calcium 8.7
Vital Signs:
Vital Signs
Temp Pulse Resp BP Pulse Ox
97.9 F 76 16 181/94 97
11/07/23 15:55 11/07/23 15:55 11/07/23 15:55 11/07/23 15:55 11/07/23 15:55
I&O
11/06/23 11/07/23 11/08/23
06:59 06:59 06:59
Intake Total 2640 / 2640 2465 / 2465
Output Total 250 / 250 1400 / 1400
Balance 2390 / 2390 1065 / 1065
[2023-11-07 19:12] VITALS: BP 166/109
[2023-11-07] MEDS: LANTUS SC (19:44)
[2023-11-07] MEDS: KCL 260 MEQ IV (19:58)
[2023-11-07] MEDS: NON-FORMULARY ITEM 400 MG IM (20:04)
[2023-11-07 21:30] LABS: Glucose - Point of Care 121 mg/dl (70-99)
[2023-11-08] VITALS (7 sets, daily range): BP systolic 135–177; BP diastolic 86–109
[2023-11-08 06:59] LABS: % Basophils 0.6 % (0-2); % Eosinophils 2.4 % (0-6); % Immature Granulocytes 0.5 % (0-0.5); % Lymphocytes 26.5 % (20.5-51.1); % Monocytes 7.1 % (1.7-9.3); % Neutrophils 62.9 % (42.2-75.2); Absolute Basophils 0.1 10^3/uL (0-0.2); Absolute Eosinophils 0.2 10^3/uL (0-0.7); Absolute Immature Granulocytes 0.1 10^3/uL (0-0.05); Absolute Lymphocytes 2.5 10^3/uL (1.2-3.4); Absolute Monocytes 0.7 10^3/uL (0.1-0.6); Absolute Neutrophils 5.9 10^3/uL (1.4-6.5); Hemoglobin 12.5 g/dL (12.0-16.0); Mean Corp Hgb Conc. 35.7 g/dL (33.0-37.0); Mean Corpuscular Hgb 30.5 pg (27.0-31.0); Mean Corpuscular Volume 85.4 fL (81.0-99.0); Mean Platelet Volume 9.9 fL (7.4-10.4); Nucleated Red Blood Cells % 0 %; Platelet Count 263 10^3/uL (130-400); Red Cell Dist. Width 11.5 % (11.5-14.5); White Blood Cell Count 9.3 10^3/uL (4.8-10.8)
[2023-11-08] MEDS: NSS 1000 IV ×2 (07:17→23:52)
[2023-11-08 07:24] LABS: Glucose - Point of Care 89 mg/dl (70-99)
[2023-11-08 07:33] LABS: Blood Urea Nitrogen 8 mg/dl (7-17); Calcium 8.1 mg/dl (8.4-10.2); Carbon Dioxide 25 mmol/L (22-30); Chloride 107 mmol/L (98-107); Estimated Creatinine Clearance > 125 ml/min; Glucose 100 mg/dl (70-99); Magnesium 1.8 mg/dl (1.6-2.3); Phosphorus 3.6 mg/dl (2.5-4.5); Potassium 3.1 mmol/L (3.5-5.1); Sodium 136 mmol/L (135-145); eGFR > 60.00
[2023-11-08] MEDS: LYRICA 150 MG PO ×2 (07:44→20:17)
[2023-11-08] MEDS: ATIVAN 1 MG PO ×2 (07:44→18:01)
[2023-11-08] MEDS: COGENTIN 0.5 MG PO ×2 (07:44→20:17)
[2023-11-08] MEDS: PROTONIX IV 40 MG IV (07:45)
[2023-11-08] MEDS: NSS (PRESERVATIVE FREE) 10 ML IV (07:45)
[2023-11-08] MEDS: COMPAZINE 5 MG IV ×2 (07:45→18:09)
[2023-11-08] MEDS: KCL 260 MEQ IV (09:20)
[2023-11-08] MEDS: LANTUS 0.349999999999999978 UNITS SC (09:21)
[2023-11-08] MEDS: NOVOLOG FLEXPEN-MODERATE RESISTANCE SC (09:31)
[2023-11-08] MEDS: MAGNESIUM SULFATE 50 IV (11:27)
--- NOTE | 2023-11-08 11:31 | PN.DE.MGMTRT ---
Insulin Management
- -
11/06/2023 Diabetes Management Consult
Patient admitted with N/V/D for 2 days. PMH asthma, neuropathy, type 1 diabetes, bipolar, panic disorder, PTSD, borderline personality disorder, cushings synd. Prior to admission was using Omni Pod 5 with novolog and DexCom G6. Pod has run out
of insulin, patient does not have additional pod. A1C on admission 9.3%, cr .5, egfr > 60. Currently not taking anything PO.
POD from our office not compatible. Will start lantus 35 units now and daily with moderate corrective insulin Q 6 hours. If patient begins to eat please change to AC.
11/07/2023 Diabetes Management Follow up
Patient continues with poor po intake. Glucose stable with 35 units lantus in AM with corrective insulin. Will make no change to regimen.
11/08/2023 Diabetes management Follow up
Glucose stable yesterday, 110 to 159. Will continue 35 lantus in AM with corrective insulin. Discussed with patient her glucose control, she states she is not used to glucose results in the 100 range states she is ALWAYS > 200. Discussed good
control is important to prevent acute and mcfp complications. When diet is advanced will order AC novolog. Advised patient that she will require 3 novolog injections with meals. States she will try to find a POD. Discussed with nurse if POD
is to be started will need temporary basal to run until 9pm tonight. Will follow.
Diabetes History
- -
Type of Diabetes: 1
Pre-Admission Diabetes Regimen
11/08/23
06:34
Creatinine 0.5 L
Lab Results
Hemoglobin A1c 9.3 % (4.0-5.6) H 11/06/23 06:49
Insulin Pump Settings
IP Diabetes Regimen
11/07/23 11/07/23 11/07/23
13:52 16:55 21:29
Glucose
POC Glucose 159 H 138 H 121 H
11/08/23 11/08/23
06:34 07:22
Glucose 100 H
POC Glucose 89
Meal type: Dinner
Meal type: Lunch
Amount consumed: 25%
Amount consumed: 25%
Patient Education
[2023-11-08] MEDS: NOVOLOG FLEXPEN-MODERATE RESISTANCE 1 UNITS SC (11:55)
[2023-11-08 12:05] LABS: Glucose - Point of Care 168 mg/dl (70-99)
--- NOTE | 2023-11-08 12:07 | W.PN.UPDATE ---
Update Note
Progress Note Update
patient seen chart reviewed. discussed w nursing. ms bautista was in a positive mood today. she is feeling somewhat better physically. she received the abilify maintenna yesterday. she is using ativan once or twice daily. she does recognize that the
ativan should not be continued outside the hospital. she is eager to resume out patient rx . she has very + relationship w her psychiatrist. patient told me she was dx with raul prior to admit and her md had been seeking a prior auith for
korlym. not sure if treatment team aware of this here at . will tiger text dr foley. will follow
--- NOTE | 2023-11-08 12:58 | W.PN.HOSP.TC ---
Today's Communication/Plan
-
Doing better
Advance diet
Chest tightness work-up, but likely chest tightness if from the dry heaving
Assessment / Plan
Assessment / Plan
Physical Exam
General: Comfortable and Conversant
HEENT: Normocephalic, Atraumatic
Respiratory: Clear and Non Labored Respirations Bilaterally
Cardiac: S1/S2 and Regular Rhythm
GI: Soft and Non Tender. Positive bowel sounds
Skin: Warm and Dry
Neuro: Awake, Alert, Oriented and Nonfocal/grossly intact
Psych: Calm
Assessment/Plan
Nausea, Vomiting and Diarrhea
Concern for Gastroenteritis
Tachycardia
-Possibly a component of gastroparesis with poorly controlled DM, Marijuana hyperemesis or gastroenteritis with recent travel to [place]
-Followed stool studies, norovirus, c diff (negative), giardia and cryptosporidium
-Advance diet to low residue diet
-Continue anti-emetics
-Check EKG for QTc interval: QTc is 442
-Tachycardia was likely from dehydration and poor oral intake recently/acute illness
-Hold home Motegrity
-Consulted GI, recommendations appreciated
Chest Tightness for the past few days
-Most likely explanation is dry heaving GI symptoms
-But will check EKG, troponin, echocardiogram
Hypokalemia, secondary to GI loses
-Replaced potassium
-Recheck level in AM
-Monitor magnesium - provided addition magnesium
Insulin-Dependent Diabetes Mellitus on Insulin Pump
History of Diabetic Ketoacidosis
History of Gestational Diabetes Mellitus
-Consulted Diabetes CURB MACHINE OPERATOR, recommendations appreciated
-Accuchecks
Neuropathy
-Continue Lyrica
Bipolar Disorder
Anxiety
-Patient receives monthly Abilify injections - received Abilify on 11/07/23
-Consulted psychiatry, recommendations appreciated
-Ativan should not be continued outside the hospital
Hyperlipidemia
-Resumed home statin
Asthma - continue home breathing treatments as needed
[place]'s Syndrome (follows Dr. Regulo Mcdowell at [facility]) - was about get [facility] outpatient - will check with endocrinology
Irritable Bowel Syndrome
History of medical marijuana use
DVT Prophylaxis: SCDs
Code Status: Full Code
Anticipated Discharge: 24 - 48 hours
Subjective/Interval History
-
Date of Service: November 08, 2023
Patient was seen and examined. She reported that she had loose stool bowel movement, and is now able to tolerate her diet better.
Objective Data
-
Labs:
Laboratory Results
11/08/23
06:34
WBC 9.3
Hgb 12.5
Hct 35.0 L
Plt Count 263
Sodium 136
Potassium 3.1 L
Chloride 107
Carbon Dioxide 25
BUN 8
Creatinine 0.5 L
Glucose 100 H
Calcium 8.1 L
Vital Signs:
Vital Signs
Temp Pulse Resp BP Pulse Ox
97.7 F 95 18 158/109 100
11/08/23 12:27 11/08/23 12:27 11/08/23 12:27 11/08/23 12:27 11/08/23 12:27
I&O
11/07/23 11/08/23 11/09/23
06:59 06:59 06:59
Intake Total 2465 / 2465 4865 / 4865
Output Total 1400 / 1400 600 / 600
Balance 1065 / 1065 4265 / 4265
[2023-11-08] MEDS: LIPITOR 10 MG PO (13:30)
[2023-11-08] MEDS: VITAMIN D3 (cholecalciferol) 125 MCG PO (13:30)
[2023-11-08 13:41] LABS: Troponin I < 0.012 ng/ml
[2023-11-08 14:15] LABS: Glucose - Point of Care 228 mg/dl (70-99)
--- NOTE | 2023-11-08 15:45 | PN.DE.MGMTRT ---
Insulin Management
- -
11/06/2023 Diabetes Management Consult
Patient admitted with N/V/D for 2 days. PMH asthma, neuropathy, type 1 diabetes, bipolar, panic disorder, PTSD, borderline personality disorder, [place] synd. Prior to admission was using Omni Pod 5 with NovoLog and DexCom G6. Pod has run out of
insulin, patient does not have additional pod. A1C on admission 9.3%, cr .5, egfr > 60. Currently not taking anything PO.
POD from our office not compatible. Will start Lantus 35 units now and daily with moderate corrective insulin Q 6 hours. If patient begins to eat please change to AC.
11/07/2023 Diabetes Management Follow up
Patient continues with poor po intake. Glucose stable with 35 units Lantus in AM with corrective insulin. Will make no change to regimen.
11/08/2023 Diabetes management Follow up
Glucose stable yesterday, 110 to 159. Will continue 35 Lantus in AM with corrective insulin. Discussed with patient her glucose control, she states she is not used to glucose results in the 100 range states she is ALWAYS > 200. Discussed good
control is important to prevent acute and oven press tender complications. When diet is advanced will order AC NovoLog. Advised patient that she will require 3 NovoLog injections with meals. States she will try to find a POD. Discussed with nurse if POD
is to be started will need temporary basal to run until 9pm tonight. Will follow.
11/08/2022: Diabetes Management F/U:
Pt was able to obtain new POD and is requesting to have insulin pump resumed. Unfortunately pt does not have supply of insulin vial for use with pump.
Explained to pt that will need to order NovoLog vial from hospital pharmacy in order to resume use of insulin pump.
Instructed pt to wait until DM-SEAFOOD TECHNOLOGY SPECIALIST is at bedside- ideally tomorrow morning to assist in set up of insulin pump. Pt states that she is comfortable and independent with resuming use of pump.
Updates given to Pt's nurse and emphasized need to have DM-SEAFOOD TECHNOLOGY SPECIALIST at bedside prior to resuming pump use
Diabetes History
- -
Type of Diabetes: 1
Pre-Admission Diabetes Regimen
11/08/23
06:34
Creatinine 0.5 L
Lab Results
Hemoglobin A1c 9.3 % (4.0-5.6) H 11/06/23 06:49
Insulin Pump Settings
IP Diabetes Regimen
11/07/23 11/07/23 11/08/23
16:55 21:29 06:34
Glucose 100 H
POC Glucose 138 H 121 H
11/08/23 11/08/23 11/08/23
07:22 11:54 14:12
Glucose
POC Glucose 89 168 H 228 H
Meal type: Dinner
Amount consumed: 25%
Patient Education
--- NOTE | 2023-11-08 16:03 | W.PN.GI.CBS2 ---
Today's Communication / Plan
-
Can d/c home if pt tolerates solid diet, GI s/o.
Assessment / Plan
-
The patient is a 38 year old female with h/o IDDM (prior DKA), neuropathy, asthma, bipolar disorder, hypercholesterolemia, recently diagnosis benjamin syndrome, IBS,�and marijuana use who p/w nausea, vomiting, and diarrhea.� She had recently traveled
to [place].� On admission hbg A1C 9.3 and noted with insulin pump empty.� Pt also noted with anxiety attack with psych evaluation.� She also admits to daily Marijuana use.� She does have IBS with chronic constipation on Motegrity.� In review of
records hx admission in January 2023 with [facility] with nausea, vomiting, diarrhea, metabolic acidosis and DKA.�
Had dry heaves without vomiting. Tolerated FLD yesterday, diet advanced to solid diet, few bites of burger and stopped eating. Nausea but denies vomiting. Overall improving. If pt tolerates solid diet then can d/c home with GI f/u (with
[facility]). Will s/o, call with questions.
Total Time Spent with Patient (in minutes): 35
Subjective
Subjective
Date of Service: November 08, 2023
Dry heaves but denies vomiting o/n. Tolerated FLD. Had few bites of solid diet today.
Objective
Data Reviewed
Laboratory Data:
Laboratory Results
11/08/23 06:34
11/08/23 06:34
Laboratory Results
Phosphorus 3.6 mg/dl (2.5-4.5) 11/08/23 06:34
Magnesium 1.8 mg/dl (1.6-2.3) 11/08/23 06:34
Total Bilirubin 1.2 mg/dl (0.2-1.3) 11/05/23 09:26
AST 36 U/L (14-36) 11/05/23 09:26
ALT 35 U/L (0-35) 11/05/23 09:26
Alkaline Phosphatase 99 U/L (38-126) 11/05/23 09:26
Vital Signs and I&O:
Vital Signs
Temp Pulse Resp BP Pulse Ox
97.7 F 95 18 158/109 100
11/08/23 12:27 11/08/23 12:27 11/08/23 12:27 11/08/23 12:27 11/08/23 12:27
I&O
11/07/23 11/08/23 11/09/23
06:59 06:59 06:59
Intake Total 2465 / 2465 4865 / 4865
Output Total 1400 / 1400 600 / 600
Balance 1065 / 1065 4265 / 4265
[2023-11-08 16:31] LABS: Glucose - Point of Care 230 mg/dl (70-99)
[2023-11-08] MEDS: NOVOLOG FLEXPEN-MODERATE RESISTANCE 3 UNITS SC (17:11)
--- NOTE | 2023-11-08 18:36 | PTCARENOTE ---
Patient with increased anxiety and some nausea- received Ativan as requested. BP 177/107 - hospitalist notified.
--- NOTE | 2023-11-08 19:34 | PTCARENOTE ---
Patient became verbally and physically abusive with staff, threatened to 'mess this place up' threw her commode in her room. Security notified and patient told them she would not speak to them. Calmed down for the moment.
[2023-11-08] MEDS: MELATONIN 10 MG PO (20:26)
[2023-11-08 21:16] LABS: Glucose - Point of Care 185 mg/dl (70-99)
[2023-11-08 22:39] LABS: Troponin I < 0.012 ng/ml
[2023-11-08] MEDS: NSS IV (23:51)
[2023-11-09] MEDS: ProAIR HFA INHALER 2 PUFF INH (01:45)
[2023-11-09 03:05] VITALS: BP 136/84
[2023-11-09 04:02] LABS: % Basophils 0.5 % (0-2); % Eosinophils 3.1 % (0-6); % Immature Granulocytes 0.4 % (0-0.5); % Lymphocytes 30.2 % (20.5-51.1); % Monocytes 8.2 % (1.7-9.3); % Neutrophils 57.6 % (42.2-75.2); Absolute Basophils 0.1 10^3/uL (0-0.2); Absolute Eosinophils 0.3 10^3/uL (0-0.7); Absolute Lymphocytes 2.8 10^3/uL (1.2-3.4); Absolute Monocytes 0.8 10^3/uL (0.1-0.6); Absolute Neutrophils 5.3 10^3/uL (1.4-6.5); Hematocrit 32.5 % (37.0-47.0); Hemoglobin 12.1 g/dL (12.0-16.0); Mean Corp Hgb Conc. 37.2 g/dL (33.0-37.0); Mean Corpuscular Hgb 31.3 pg (27.0-31.0); Mean Platelet Volume 9.6 fL (7.4-10.4); Nucleated Red Blood Cells % 0 %; Platelet Count 244 10^3/uL (130-400); Red Blood Cell Count 3.87 10^6/uL (4.20-5.40); Red Cell Dist. Width 11.6 % (11.5-14.5); White Blood Cell Count 9.2 10^3/uL (4.8-10.8)
[2023-11-09] MEDS: COMPAZINE 5 MG IV (04:08)
[2023-11-09 04:26] LABS: Troponin I < 0.012 ng/ml
[2023-11-09 04:29] LABS: Blood Urea Nitrogen 6 mg/dl (7-17); Carbon Dioxide 27 mmol/L (22-30); Chloride 106 mmol/L (98-107); Estimated Creatinine Clearance > 125 ml/min; Glucose 162 mg/dl (70-99); Magnesium 1.9 mg/dl (1.6-2.3); Phosphorus 3.7 mg/dl (2.5-4.5); Potassium 3.2 mmol/L (3.5-5.1); Sodium 135 mmol/L (135-145); eGFR > 60.00
[2023-11-09 07:05] LABS: Glucose - Point of Care 135 mg/dl (70-99)
[2023-11-09] MEDS: NSS 1000 IV (07:18)
[2023-11-09] MEDS: LYRICA 150 MG PO (07:19)
[2023-11-09] MEDS: LIPITOR 10 MG PO (07:19)
[2023-11-09] MEDS: COGENTIN 0.5 MG PO (07:19)
[2023-11-09] MEDS: VITAMIN D3 (cholecalciferol) 125 MCG PO (07:20)
[2023-11-09] MEDS: NSS (PRESERVATIVE FREE) 10 ML IV (07:20)
[2023-11-09] MEDS: PROTONIX IV 40 MG IV (07:20)
[2023-11-09 08:19] VITALS: BP 144/83
--- NOTE | 2023-11-09 08:30 | PN.DE.MGMTRT ---
Insulin Management
- -
11/06/2023 Diabetes Management Consult
Patient admitted with N/V/D for 2 days. PMH asthma, neuropathy, type 1 diabetes, bipolar, panic disorder, PTSD, borderline personality disorder, [place] synd. Prior to admission was using Omni Pod 5 with NovoLog and DexCom G6. Pod has run out of
insulin, patient does not have additional pod. A1C on admission 9.3%, cr .5, egfr > 60. Currently not taking anything PO.
POD from our office not compatible. Will start Lantus 35 units now and daily with moderate corrective insulin Q 6 hours. If patient begins to eat please change to AC.
11/07/2023 Diabetes Management Follow up
Patient continues with poor po intake. Glucose stable with 35 units Lantus in AM with corrective insulin. Will make no change to regimen.
11/08/2023 Diabetes management Follow up
Glucose stable yesterday, 110 to 159. Will continue 35 Lantus in AM with corrective insulin. Discussed with patient her glucose control, she states she is not used to glucose results in the 100 range states she is ALWAYS > 200. Discussed good
control is important to prevent acute and predatory animal exterminator complications. When diet is advanced will order AC NovoLog. Advised patient that she will require 3 NovoLog injections with meals. States she will try to find a POD. Discussed with nurse if POD
is to be started will need temporary basal to run until 9pm tonight. Will follow.
11/08/2022: Diabetes Management F/U:
Pt was able to obtain new POD and is requesting to have insulin pump resumed. Unfortunately pt does not have supply of insulin vial for use with pump.
Explained to pt that will need to order NovoLog vial from hospital pharmacy in order to resume use of insulin pump.
Instructed pt to wait until DM-HAY BALER is at bedside- ideally tomorrow morning to assist in set up of insulin pump. Pt states that she is comfortable and independent with resuming use of pump.
Updates given to Pt's nurse and emphasized need to have DM-HAY BALER at bedside prior to resuming pump use.
11/09/2022: Diabetes Management F/U:
Pt unavailable, left AMA this AM.
Diabetes History
- -
Type of Diabetes: 1
Pre-Admission Diabetes Regimen
11/09/23
03:54
Creatinine 0.5 L
Lab Results
Hemoglobin A1c 9.3 % (4.0-5.6) H 11/06/23 06:49
Insulin Pump Settings
IP Diabetes Regimen
11/08/23 11/08/23 11/08/23
11:54 14:12 16:27
Glucose
POC Glucose 168 H 228 H 230 H
11/08/23 11/09/23 11/09/23
21:13 03:54 07:03
Glucose 162 H
POC Glucose 185 H 135 H
Meal type: Lunch
Meal type: Breakfast
Amount consumed: 100%
Amount consumed: 100%
Patient Education
[2023-11-09] MEDS: NOVOLOG FLEXPEN-MODERATE RESISTANCE SC (09:11)
[2023-11-09] MEDS: LANTUS SC (09:29)
--- NOTE | 2023-11-09 09:38 | PTCARENOTE ---
11/09- Patient is AAOX3 but anxious, agitated, combative. She has poor impulse control, accidentally swiping her phone off of the bed and breaking the screen. She stated 'I want to kill all of you,' but then denies stating that. Scattered agitated
thinking, redirectable, but very poor impulse control. Patient stated repeatedly she wants to leave. She threatened to rip out her own IV unless I took it out now. Then she was on to the next thought about her phone. This RN spoke with Father
who came to visit. Therapeutic conversation, but advised father we cannot legally keep her against her will, and that she is allowed to sign AMA paperwork. He verbalized understanding. Patient signed AMA paperwork. Notified Physician and CM.
--- NOTE | 2023-11-09 09:46 | W.PN.HOSP.TC ---
Today's Communication/Plan
-
Left against medical advice, prior to official discharge
Assessment / Plan
Assessment / Plan
Physical Exam
General: Comfortable and Conversant
HEENT: Normocephalic, Atraumatic
Respiratory: Clear and Non Labored Respirations Bilaterally
Cardiac: S1/S2 and Regular Rhythm
GI: Soft and Non Tender. Positive bowel sounds
Skin: Warm and Dry
Neuro: Awake, Alert, Oriented and Nonfocal/grossly intact
Psych: Calm
Assessment/Plan
Nausea, Vomiting and Diarrhea
Concern for Gastroenteritis
Tachycardia
-Possibly a component of gastroparesis with poorly controlled DM, Marijuana hyperemesis or gastroenteritis with recent travel to [place]
-Followed stool studies, norovirus, c diff (negative), giardia and cryptosporidium
-Continue low residue diet
-Continue anti-emetics
-Check EKG for QTc interval: QTc is 442
-Tachycardia was likely from dehydration and poor oral intake recently/acute illness
-Hold home Motegrity
-Consulted GI, recommendations appreciated
Chest Tightness for the past few days
-Most likely explanation is dry heaving GI symptoms
-Troponins negative
-Echocardiogram showed Trace mitral regurgitation and Moderate aortic insufficiency
Hypokalemia, secondary to GI loses
-Replaced potassium
-Recheck levels outpatient
-Monitor magnesium - provided addition magnesium
-Sent a limited supply of potassium to patient's pharmacy
-Patient stated she will follow-up with her PCP by Sunday, November 12, 2023 and have her labwork rechecked
Insulin-Dependent Diabetes Mellitus on Insulin Pump
History of Diabetic Ketoacidosis
History of Gestational Diabetes Mellitus
-Consulted Diabetes PROGRAM CHECKER, recommendations appreciated
-Accuchecks
Neuropathy
-Continue Lyrica
Bipolar Disorder
Anxiety
-Patient receives monthly Abilify injections - received Abilify on 11/07/23
-Consulted psychiatry, recommendations appreciated
-Ativan should not be continued outside the hospital
Hyperlipidemia
-Resumed home statin
Asthma - continue home breathing treatments as needed
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
Irritable Bowel Syndrome
History of medical marijuana use
DVT Prophylaxis: SCDs
Code Status: Full Code
November 09, 2023: Today, patient left against medical advice before official discharge paperwork was able to be completed. Patient was seen in the morning, said she felt better and her symptoms improved but she was really upset about staying here
any longer and wanted to go home JONAT[place]. Later, she left against medical advice, with her dad, before official discharge. I called the patient on her cell phon and informed her that I sent potassium supplementation to her pharmacy, explained to her
that she will really need to follow-up with her primary care provider and have labs rechecked with her primary care provider at that time, by Sunday11/12/23.
Anticipated Discharge: Today
Subjective/Interval History
-
Date of Service: November 09, 2023
Patient was seen and examined. Patient mentioned that her nausea and PO intake has improved, that she was really wanted to go home and was tearful as she wanted to go home. Later in the morning, she left against medical advice with her father.
Objective Data
-
Labs:
Laboratory Results
11/09/23
03:54
WBC 9.2
Hgb 12.1
Hct 32.5 L
Plt Count 244
Sodium 135
Potassium 3.2 L
Chloride 106
Carbon Dioxide 27
BUN 6 L
Creatinine 0.5 L
Glucose 162 H
Calcium 8.0 L
Vital Signs:
Vital Signs
Temp Pulse Resp BP Pulse Ox
97.8 F 82 18 144/83 96
11/09/23 08:19 11/09/23 08:19 11/09/23 08:19 11/09/23 08:19 11/09/23 08:19
I&O
11/08/23 11/09/23 11/10/23
06:59 06:59 06:59
Intake Total 4865 / 4865 2380 / 2380
Output Total 600 / 600 800 / 800
Balance 4265 / 4265 1580 / 1580
--- NOTE | 2023-11-09 09:51 | CM ---
Patient left AMA.
--- NOTE | 2023-11-11 10:11 | W.DCSUMMARY ---
Discharge Summary
Discharge Data
Date of Admission: 11/06/23
Date of Discharge: 11/09/23
Total time spent discharging patient (in min): 33
-
Pending Results: Yes
Additional Pending Results:
Stool studies and cultures
Hospital Course
38 y/o female with a past medical history of Asthma, Diabetes Mellitus, Diabetic Ketoacidosis, Gestational Diabetes Mellitus, [place]'s Syndrome (follows Dr. Regulo Mcdowell at [facility]), Hyperlipidemia, Irritable Bowel Syndrome, history of
marijuana use, Anxiety and Bipolar Disorder who presented to the emergency department reporting intractable nausea, vomiting and non-bloody diarrhea for a few days. She states she began experiencing diarrhea few days to maybe a week ago, then
diarrhea stopped for 2 days (and once today), and then had vomiting starting 2 days ago. She recently was in the [facility]; she reported [place] and stated three other women came in to do the same while she was
in the bathroom. Patient stated she felt feverish, but did not take her temperature. She admits to experiencing something similar last February 2023 as a result of diabetic ketoacidosis but stated it was not to this degree.
Stool studies were ordered and intravenous fluids were ordered. Gastroenterology and Psychiatry (for anxiety) were consulted. Patient was placed on clear liquids diet. Patient's potassium needed to be replaced. Diabetes Nurse Practitioner was
consulted to assist with patient's Insulin management given that patient was noted to have an Insulin pump. The available POD in the hospital was not complatible with patient's Insulin pump therefore she was continued on scheduled subcutaneous
Insulin as well as Sliding Scale Insulin.
Gabapentin was held since patient was already on Lyrica. PRN Ativan was ordered and patient received her Abilify injection. Gastroenterology mentioned that patient's symptoms were likely from multiple possible etiologies, including: possible sick
contact which would raise concern for gastroenteritis (she admits to eating at resort and being in bathroom when other visitors were vomiting), diabetic gastroparesis (HbA1c 9.3), cannabis hyperemesis syndrome vs. other. Patient's potassium was
replaced. Patient's symptoms improved. Patient left against medical advice before formally being discharged.
Discharge Plan
-
Patient Disposition: Against Medical Advice
Referrals:
Josephine Mcdowell CRNP [Family Provider] -
Zheng Holley MD [Active] - (due follow up in February -- message sent to see if any sooner appt open up)
Prescriptions:
New
potassium chloride 10 mEq packet
20 meq PO BID 4 Days Qty: 16 0RF
Continued
atorvastatin 10 mg Tablet
10 mg PO DAILY
Patient Comments:
11/05/2023, per pt., took this med. this morning but believes to have thrown it up.
insulin aspart U-100 100 unit/mL Solution
0 unit SC .VIA PUMP
Patient Comments:
11/05/2023, per pt., she puts 200 units into her pump and replaces it every 2-3 days. Pt. states to have changed her pump roughly 1-2 days ago and says that the pod expires tomorrow.
albuterol sulfate [Ventolin HFA] 90 mcg/actuation Hfa Aerosol Inhaler
2 puff INHALATION R Q4HPRN PRN (Reason: sob)
pregabalin 150 mg Capsule
150 mg PO BID
Patient Comments:
11/05/2023, per pt., took this med. this morning but believes to have thrown it up.
cholecalciferol (vitamin D3) 125 mcg (5,000 unit) Tablet
125 mcg PO DAILY
Patient Comments:
11/05/2023, per pt., took this vitamin this morning but believes to have thrown it up.
melatonin 10 mg Tablet Extended Release
10 mg PO HSPRN PRN (Reason: sleep)
Abilify Maintena 400 mg suspension,extended rel syring
400 mg IM Q3W
Patient Comments:
11/05/2023, per pt., next dose is scheduled for tomorrow.
Medical Marijuana
0 inh inhalation BIDPRN PRN (Reason: mild pain/sleep/anxiety)
Patient Comments:
11/05/2023, pt. smokes flower form BIDPRN for anxiety, mild pain, and sleep. Pt. states that she smokes a 'blunt' and is unsure of the amount of puffs she takes per use.
Held
Motegrity 2 mg Tablet
2 mg PO DAILY
Hold Instructions: Resume on 11/16/23. Discuss with your primary care physician before resuming this medication
Patient Comments:
11/05/2023, per pt., took this med. this morning but believes to have thrown it up.
Discharge Date and Time
Discharge Date/Time: 11/09/23 09:52
== END 2023-11-09 09:52 | disposition left against medical advice (07) | DRG 74 ==
LOC: 4 WEST ACU 13:48
PROVIDERS: Physician Assistant Medical; Registered Nurse; ADMITTING PHYSICIAN Hospitalist; CONSULT PHYSICIAN Internal Medicine Gastroenterology; CONSULT PHYSICIAN Psychiatry & Neurology Psychiatry; EMERGENCY PHYSICIAN Emergency Medicine; FAMILY PHYSICIAN Nurse Practitioner Family
DX: E11.40 Type 2 diabetes mellitus with diabetic neuropathy, unspecified (principal); A09 Infectious gastroenteritis and colitis, unspecified; E24.9 Cushing's syndrome, unspecified; Z79.4 Long term (current) use of insulin; F31.9 Bipolar disorder, unspecified; J45.909 Unspecified asthma, uncomplicated; F41.0 Panic disorder [episodic paroxysmal anxiety]; F11.91 Opioid use, unspecified, in remission; E78.00 Pure hypercholesterolemia, unspecified; F12.90 Cannabis use, unspecified, uncomplicated; E87.6 Hypokalemia; Z96.41 Presence of insulin pump (external) (internal); Z53.29 Procedure and treatment not carried out because of patient's decision for other reasons; Z11.52 Encounter for screening for COVID-19
CPT/HCPCS: 80048; 80053; 80306; 81003; 81015; 82962; 83036; 83735; 84100; 84484; 84703; 85025; 85027; 87045; 87046; 87077; 87324; 87328; 87329; 87427; 87449; 87798; 87811; 89055; 93005; 93306; 94640; 96361; 96374; 96375; 99284

== ENCOUNTER 2024-01-22 08:00 | Inpatient (IN) | payer OTHER, SELFPAY ==
[2024-01-19] VITALS (11 sets, daily range): BP systolic 121–190; BP diastolic 63–120; BMI 28.5
[2024-01-19] MEDS: NSS 1000 IV ×2 (14:46→23:13)
[2024-01-19] MEDS: ZOFRAN 4 MG IV ×2 (14:46→23:25)
[2024-01-19 14:55] LABS: Glucose - Point of Care 176 mg/dl (70-99)
--- NOTE | 2024-01-19 15:01 | EDRN ---
this RN was assessing the pt and asking the pt questions and the pt stated to this RN, 'I am not answering questions right now, just do your job you fat bitch, just fucking help me', this RN asked the pt to please not speak to this RN that way, the
pts mother is at the pts bedside and is stating to the pt, 'Just behave you hear me? don't start your stuff', the pt was placed on the monitor, PIV placed, IVF administered along with Zofran per the providers orders, when this RN administered zofran
the pt stated to this RN, 'Yeah that's not going to do shit, go get me something else and do your job', this RN notified the provider, the pt is resting in the stretcher in the lowest position, side rails up x2, call kee within reach, HOB elevated,
will continue to monitor the pt closely
[2024-01-19 15:06] LABS: % Basophils 0.5 % (0-2); % Eosinophils 0.2 % (0-6); % Immature Granulocytes 0.5 % (0-0.5); % Lymphocytes 17.6 % (20.5-51.1); % Monocytes 7.7 % (1.7-9.3); % Neutrophils 73.5 % (42.2-75.2); Absolute Basophils 0.1 10^3/uL (0-0.2); Absolute Immature Granulocytes 0.1 10^3/uL (0-0.05); Absolute Lymphocytes 2.3 10^3/uL (1.2-3.4); Absolute Neutrophils 9.4 10^3/uL (1.4-6.5); Hematocrit 40.8 % (37.0-47.0); Hemoglobin 14.6 g/dL (12.0-16.0); Mean Corp Hgb Conc. 35.8 g/dL (33.0-37.0); Mean Corpuscular Hgb 31.1 pg (27.0-31.0); Mean Corpuscular Volume 86.8 fL (81.0-99.0); Nucleated Red Blood Cells % 0 %; Platelet Count 307 10^3/uL (130-400); Red Cell Dist. Width 12.9 % (11.5-14.5); White Blood Cell Count 12.8 10^3/uL (4.8-10.8)
[2024-01-19 15:22] LABS: HCG, Serum Qualitative Screen Negative
[2024-01-19 15:23] LABS: COVID-19 Antigen Negative (Negative)
[2024-01-19 15:25] LABS: ALT (SGPT) 28 U/L (0-35); AST (SGOT) 31 U/L (14-36); Albumin 4.9 g/dl (3.5-5.0); Alkaline Phosphatase 82 U/L (38-126); Blood Urea Nitrogen 15 mg/dl (7-17); Carbon Dioxide 26 mmol/L (22-30); Chloride 103 mmol/L (98-107); Estimated Creatinine Clearance > 125 ml/min; Glucose 193 mg/dl (70-99); Lipase 54 U/L (23-300); Potassium 3.7 mmol/L (3.5-5.1); Sodium 138 mmol/L (135-145); Total Protein 7.8 g/dl (6.3-8.2); eGFR > 60.00
--- NOTE | 2024-01-19 15:45 | EDRN ---
this RN spoke to the provider Ed Harrison CORONA and per the provider nausea medication was changed
[2024-01-19] MEDS: PEPCID 20 MG IV (15:47)
[2024-01-19] MEDS: REGLAN 10 MG IV (15:47)
[2024-01-19] MEDS: BENADRYL 25 MG IV ×2 (15:47→18:08)
--- NOTE | 2024-01-19 15:54 | EDRN ---
IVF and medications were administered per Ed Harrison CORONA's orders, the pt was calm and cooperative, EKG also performed, the pt is resting in stretcher in the lowest position, side rails up x2, call kee within reach, HOB elevated, NSR in the 80's,
last BP 189/83 (114), RA Sp02 92%, no s/s of distress, the pt is not vomiting currently, will continue to monitor the pt closely
--- NOTE | 2024-01-19 16:19 | EDRN ---
the pt pressed the call kee and this RN entered the pts room, the pt stated that she needed to use the bathroom, this RN asked the pt if she could try to provide a urine sample, the pt stated that she would try, the pt was able to ambulate to the
bathroom independently with no issues, this RN will check on the pt
--- NOTE | 2024-01-19 16:23 | EDRN ---
the pt was able to ambulate back to the stretcher, the pt is resting in the stretcher in the lowest position, side rails up x2, call kee within reach, HOB elevated, no s/s of distress, the pt stated to this RN that she did not want to be placed
back on the monitor, this RN notified provider Ivan CORONA
--- NOTE | 2024-01-19 17:09 | ED.GENMED ---
History of Present Illness
General
Chief Complaint: Abdominal Symptoms
Source: patient
Exam Limitations: none
Time Seen by Provider: 01/19/24 15:05
Nursing documentation reviewed up to this point in time: agreed with
Travel History
Have you had any contact with someone who has COVID-19?: No
Do you have any symptoms of coronavirus? Fever > 100 degrees, chills, cough, shortness of breath, sore throat, loss of taste or smell, muscle aches, or headache?: No
History of Present Illness
History of Present Illness:
38-year-old female with past medical history of anxiety bipolar panic disorder and substance abuse presenting to the emergency department today with concerns of nausea and vomiting as well as diarrhea over the past 12 hours or so has had ongoing
abdominal pain which is somewhat diffuse. She also claims that she started a new medication recently that she thinks may be causing symptoms Wegovy. She took the only dosing just 3 days ago. Denies any chest pain shortness of breath.
Past History
Past History
ED Past Medical History: Asthma, IDDM, Psychiatric and Other (Stopped Methadone 2 years ago, denies illicit drug use)
Patient has exhibited threatening behavior?: Yes
Date of threatening behavior? (updated with each occurrence): 07/17/19 (making threats to staff and police)
Social History
Tobacco: Non-smoker
Alcohol: None
Drug: Former user
Personal: Single
Living: with family
Employment: Not employed
Review of Systems
Review of Systems
Allergies reviewed?: Yes
All Other Systems: ROS reviewed and negative except as documented in HPI and ROS
Phy Exam
Physical Exam
Physical Exam:
GENERAL: Alert , in no apparent distress
EYE: pupils equal and reactive
NECK: Supple, no significant adenopathy.
ENT: o/p clr, mmm.
CARDIAC: Regular rate and rhythm .
LUNGS: Clear breath sounds bilaterally, no acute respiratory distress, no wheezes/rales/rhonchi
ABDOMEN: Diffuse abdominal pain.
NEUROLOGICAL: Alert and oriented, no focal neuro deficits
SKIN: Warm and dry, skin intact.
MUSCULOSKELETAL: No edema, well perfused.
PSYCH: Normal and appropriate interaction.
Course
Orders/Labs/Results
Orders:
Orders
01/19/24 14:36
Test Result ONCE
01/19/24 14:38
0.9% Sodium Chloride 1000 ml [Nss] 1,000 ml IV BOLUS
Ondansetron Injectable [Zofran] 4 mg IV NOW STA
01/19/24 14:48
COVID-19 Antigen Urgent
Source: Nasal Swab
Complete Blood Count/With Diff Urgent
Comprehensive Metabolic Panel Urgent
HCG, Serum Qualitative Screen Urgent
Lipase Urgent
Influenza A+B Rapid Molecular Urgent
NGOZI Source: Nasal Swab
Specimen Description:
Date Specimen was Collected: 01/19/24
Time Specimen was Collected: 14:36
01/19/24 15:39
CT Abd/Pel (IV only)-DH only Urgent
Comment:
Reason For Exam: rlq pain
Famotidine [Pepcid] 20 mg IV NOW STA
Ondansetron Injectable [Zofran] 4 mg IV NOW STA
01/19/24 15:40
0.9% Sodium Chloride 1000 ml [Nss] 1,000 ml IV BOLUS
01/19/24 15:41
EKG [Electrocardiogram (*1)] Urgent
Reason for Study: QTc Monitoring
EKG- Treatment ONCE
01/19/24 15:44
Diphenhydramine [Benadryl] 25 mg IV NOW STA
Metoclopramide [Reglan] 10 mg IV NOW STA
01/19/24 17:53
Diphenhydramine [Benadryl] 25 mg IV NOW STA
Prochlorperazine [Compazine] 10 mg IV NOW STA
Abnormal Lab Results
01/19/24 01/19/24
14:48 14:53
WBC 12.8 H 10^3/uL
(4.8-10.8)
MCH 31.1 H pg
(27.0-31.0)
Abs Immat Gran (auto) 0.1 H 10^3/uL
(0-0.05)
Absolute Neuts (auto) 9.4 H 10^3/uL
(1.4-6.5)
Absolute Monos (auto) 1.0 H 10^3/uL
(0.1-0.6)
Lymphocytes % 17.6 L %
(20.5-51.1)
Glucose 193 H mg/dl
(70-99)
POC Glucose 176 H mg/dl
(70-99)
01/19/24 14:48
01/19/24 14:48
Vital Signs
Initial and Last Documented VS:
Initial Vital Signs
Temp Pulse Resp BP Pulse Ox
98.2 F 100 22 171/109 100
01/19/24 14:04 01/19/24 14:04 01/19/24 14:04 01/19/24 14:04 01/19/24 14:04
Last Documented Vital Signs
Temp Pulse Resp BP Pulse Ox
97.5 F 85 21 158/83 95
01/19/24 18:54 01/19/24 20:15 01/19/24 20:15 01/19/24 20:00 01/19/24 20:15
MDM/Problems Addressed
MDM/Problems Addressed:
38-year-old female presenting to the emergency department today with concerns of nausea vomiting diarrhea starting this morning with diffuse abdominal pain. Tenderness throughout her abdomen here. CT scan without emergent findings. Patient
continually vomiting throughout ER stay was given Reglan Benadryl Zofran no relief additionally given Compazine had slight improvement then started retching again heart rate then repeatedly elevated to 110 plan to admit for further treatment and
monitoring.
*Critical Care Note
Total Time (30-74mins, 75-104mins- exclusive of procedures): Not Applicable
ED Attending Note
-
Portions of this chart may have been created with voice recognition software.� Occasional wrong word or��sound alike� substitutions may have occurred due to the inherent limitations of voice recognition software.
Discharge Plan
Departure
Patient Disposition: Admit
Date of Disposition: 01/19/24
Time of Disposition: 21:00
Admit to: Med/Surg
Admit to doctor: Reggie
Presentation/result/management discussed w/ accepting MD/DO: Hospitalist
Patient with high blood pressure during this ER visit?: No
Condition: Good
Covid-19: Not Applicable
Discharge Problem:
Vomiting, Tachycardia
Prescriptions:
No Action
Motegrity 2 mg Tablet
2 mg PO DAILY
Hold Instructions: Resume on 11/16/23. Discuss with your primary care physician before resuming this medication
Patient Comments:
11/05/2023, per pt., took this med. this morning but believes to have thrown it up.
atorvastatin 10 mg Tablet
10 mg PO DAILY
Patient Comments:
11/05/2023, per pt., took this med. this morning but believes to have thrown it up.
insulin aspart U-100 100 unit/mL Solution
0 unit SC .VIA PUMP
Patient Comments:
11/05/2023, per pt., she puts 200 units into her pump and replaces it every 2-3 days. Pt. states to have changed her pump roughly 1-2 days ago and says that the pod expires tomorrow.
albuterol sulfate [Ventolin HFA] 90 mcg/actuation Hfa Aerosol Inhaler
2 puff INHALATION R Q4HPRN PRN (Reason: sob)
pregabalin 150 mg Capsule
150 mg PO BID
Patient Comments:
11/05/2023, per pt., took this med. this morning but believes to have thrown it up.
cholecalciferol (vitamin D3) 125 mcg (5,000 unit) Tablet
125 mcg PO DAILY
Patient Comments:
11/05/2023, per pt., took this vitamin this morning but believes to have thrown it up.
melatonin 10 mg Tablet Extended Release
10 mg PO HSPRN PRN (Reason: sleep)
Abilify Maintena 400 mg suspension,extended rel syring
400 mg IM Q3W
Patient Comments:
11/05/2023, per pt., next dose is scheduled for tomorrow.
Medical Marijuana
0 inh inhalation BIDPRN PRN (Reason: mild pain/sleep/anxiety)
Patient Comments:
11/05/2023, pt. smokes flower form BIDPRN for anxiety, mild pain, and sleep. Pt. states that she smokes a 'blunt' and is unsure of the amount of puffs she takes per use.
potassium chloride 10 mEq packet
20 meq PO BID 4 Days Qty: 16 0RF
Referrals:
UNKNOWN - PT DOES,NOT KNOW [Family Provider] -
Interventions
Interventions:
*Risk Screen - Suicide Last Done: 01/19/24 14:04
*General Assessment Last Done: 01/19/24 14:04
*Neglect/Abuse Screening Last Done: 01/19/24 14:04
ED- Fall Risk Assessment Last Done: 01/19/24 14:48
*ED COVID-19 Vaccine History Last Done: 01/19/24 14:48
TZ-Jijtyo-Khzxgkofaw Assessment Last Done: 01/19/24 14:48
Discharge Date and Time
Print Language: GHANAIAN
[2024-01-19] MEDS: COMPAZINE 10 MG IV (18:08)
--- NOTE | 2024-01-19 18:53 | EDRN ---
the pt was given ice chips per the provider Ivan CORONA and the pt was able to tolerate them
--- NOTE | 2024-01-19 18:54 | EDRN ---
blood pressures have been elevated due to the pt not being able to stay still because she, 'I don't fucking want to just leave me the fuck alone', the pt is verbally aggressive with staff, the pts mother is currently at the pts bedside attempting to
calm the pt down, Ivan CORONA at the pts bedside
--- NOTE | 2024-01-19 21:26 | HPS.HSE ---
Family Physician
-
Family Physician: NOT KNOW UNKNOWN - PT DOES
Chief Complaint
-
intractable n/v/d
History of Present Illness
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
Syndrome, history of marijuana use (last use 3-5 days ago, typically smokes it), anxiety and Bipolar Disorder, recent admission on 11/06 to 11/09 due to intractable n/v and non-bloody diarrhea and GI discussed multiple possible etiologies at that time
including diabetic gastroparesis (HbA1c 9.3), cannabis hyperemesis syndrome vs infectious etiology, who presents to ED due to similar symptoms of n/v/d over the past 12 hours prior to arrival, a/w diffuse abdominal pain. She started Wegovy recently,
first dose 3 days prior. She mentions the last time she took Wegovy 1 year ago she had same symptoms of intractable n/v/d for which she stopped. She was just restarted on it again this past week per her physician. No fever, no CP, no SOB, no
dysuria, no bleeding. In ED she received IV fluids, IV Zofran x 2 doses, Pepcid, Benadryl 25 IV x 2, Reglan 10 IV, Compazine 10 IV without relief of symptoms. Persistent dry heaves.
Medical History
Past Medical History
Past Medical History: Reports Asthma, Hypercholesterolemia, IDDM, Psychiatric (Bipolar, anxiety) and Other (Stopped Methadone 2 years ago, denies illicit drug use, Calumet syndrome, IBS, marijuana use)
Additional Past Medical History:
Diabetes Mellitus, Insulin Dependent
Neuropathy
Hyperlipidemia
Bipolar Disorder
Asthma
Hx Opioid Use Disorder
Past Surgical History: Reports None
Social History
Tobacco: Non-smoker
Alcohol: None
Drug: Former User (Prior heroin abuse, previously on methadone) and Marijuana (Medical )
Family History
Family History: Not pertinent
Allergies / Home Medications
Allergies reflects when Allergies were last updated in [employer].
Home Medications with original date entered in [employer]
Allergy/Medication List:
Allergies
Allergy/AdvReac Type Severity Reaction Status Date / Time
bupropion [From Wellbutrin] Allergy Rash Verified 11/05/23 08:30
montelukast [From Singulair] Allergy Rash Verified 11/05/23 08:30
Home Medications
prucalopride 2 mg tablet (Motegrity) 2 mg PO DAILY Gastrointestinal Issue 02/19/23
Medical Marijuana 0 inh inhalation BIDPRN PRN mild pain/sleep/anxiety 11/05/23
albuterol sulfate 90 mcg/actuation aerosol inhaler (Ventolin HFA) 2 puff inhalation R Q4HPRN PRN sob 11/05/23
aripiprazole 400 mg suspension, extended rel.intramuscular syringe (Abilify Maintena) 400 mg IM Q3W Mental Health/Anxiety 11/05/23
atorvastatin 10 mg tablet 10 mg PO DAILY High Cholesterol 11/05/23
cholecalciferol (vitamin D3) 125 mcg (5,000 unit) tablet 125 mcg PO DAILY Supplement 11/05/23
insulin aspart U-100 100 unit/mL subcutaneous solution 0 unit SC .VIA PUMP Diabetes 11/05/23
melatonin 10 mg tablet,extended release 10 mg PO HSPRN PRN sleep 11/05/23
pregabalin 150 mg capsule 150 mg PO BID Pain 11/05/23
potassium chloride 10 mEq oral packet 20 meq PO BID 4 days #16 packets 11/09/23
Review of Systems
-
A 12 point ROS was completed and negative except as noted: Yes
Physical Exam
Vital Signs
Vital Signs
Temp Pulse Resp BP Pulse Ox
97.5 F 85 21 158/83 95
01/19/24 18:54 01/19/24 20:15 01/19/24 20:15 01/19/24 20:00 01/19/24 20:15
Physical Exam
General: Well Developed, Well Nourished and Other (dry heaves, distressed due to symptoms)
HEENT: NormoCephalic, Anicteric and Moist mucous membranes
Respiratory: Clear
Cardiac: S1/S2 and Regular Rhythm
GI: Soft, Non Tender, Non Distended and Normal Bowel Sounds
Musculoskeletal: No Clubbing, No Cyanosis and No Edema
Skin: Other (tattoos )
Neuro: AO x 3 and No Motor Deficits
Psych: Calm
Laboratory Results
-
01/19/24 14:48
01/19/24 14:48
Laboratory Results
Total Bilirubin 1.0 mg/dl (0.2-1.3) 01/19/24 14:48
AST 31 U/L (14-36) 01/19/24 14:48
ALT 28 U/L (0-35) 01/19/24 14:48
Alkaline Phosphatase 82 U/L (38-126) 01/19/24 14:48
Lipase 54 U/L (23-300) 01/19/24 14:48
Data Reviewed
-
CT Scan: Report Reviewed by me
Impression/Plan
-
IMPRESSION:
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
Syndrome, history of marijuana use (last use 3-5 days ago, typically smokes it), anxiety and Bipolar Disorder, recent admission on 11/06 to 11/09 due to intractable n/v and non-bloody diarrhea and GI discussed multiple possible etiologies at that time
including diabetic gastroparesis (HbA1c 9.3), cannabis hyperemesis syndrome vs infectious etiology, who presents to ED due to similar symptoms of n/v/d over the past 12 hours prior to arrival, a/w diffuse abdominal pain. She started Wegovy recently,
first dose 3 days prior. She mentions the last time she took Wegovy 1 year ago she had same symptoms of intractable n/v/d for which she stopped.
#Intractable n/v/non-bloody diarrhea, concern medication related due to Wegovy vs Cannibis hyperemesis Syndrome vs gastroparesis vs less likely infectious etiology
-hold Wegovy
-UA pending
-COVID negative
-CT a/p No definitive acute pathology of the abdomen or pelvis identified. Stable hepatic fatty infiltration
-IVF, continue
-IV anti-emetics
-IV Ativan 1 mg once now and prn intractable n/v not relieved by anti-emetic, consider Haldol 2.5 mg IV if Ativan does not help symptoms
-supportive care
#Leukocytosis, possibly reactive
-UA pending
#IDDM glucose 193
-continue pump
-IVF, SSI, monitor glucose
Neuropathy
Hyperlipidemia
Bipolar Disorder
Asthma
Hx Opioid Use Disorder
DVT proph- Lovenox
Full Code
[2024-01-19] MEDS: MELATONIN 10 MG PO (23:25)
[2024-01-19] MEDS: ATIVAN 1 MG IV (23:28)
[2024-01-19 23:44] LABS: Glucose - Point of Care 131 mg/dl (70-99)
[2024-01-20 00:18] LABS: Urine Albumin Trace (Neg - Trace); Urine Bilirubin Negative (Negative); Urine Character Clear (Clear); Urine Color Yellow; Urine Glucose Negative (Negative); Urine Ketone 3+ (Negative); Urine Leukocyte Negative (Negative); Urine Nitrite Negative (Negative); Urine Occult Blood 2+ (Negative); Urine Urobilinogen Negative (Neg - 1+)
[2024-01-20 00:33] VITALS: BMI 29.9
[2024-01-20 01:25] LABS: Urine Squamous Cell >30 /LPF (Few)
[2024-01-20 01:28] LABS: Urine Bacteria Few (Negative); Urine Red Blood Cell 30-40 /HPF (0-2)
[2024-01-20 05:27] VITALS: BP 176/98
[2024-01-20 06:00] VITALS: BMI 29.9
[2024-01-20 07:23] LABS: Glucose - Point of Care 112 mg/dl (70-99)
[2024-01-20] MEDS: LYRICA 150 MG PO ×2 (07:27→20:28)
[2024-01-20] MEDS: LIPITOR 10 MG PO (07:27)
[2024-01-20] MEDS: ZOFRAN 4 MG IV (07:27)
[2024-01-20 07:35] VITALS: BP 149/81
[2024-01-20] MEDS: PT'S OWN INSULIN PUMP - NovoLOG SC ×3 (07:37→17:39)
[2024-01-20 07:40] LABS: % Basophils 0.5 % (0-2); % Eosinophils 0.9 % (0-6); % Immature Granulocytes 0.3 % (0-0.5); % Lymphocytes 23.1 % (20.5-51.1); % Monocytes 8.9 % (1.7-9.3); % Neutrophils 66.3 % (42.2-75.2); Absolute Eosinophils 0.1 10^3/uL (0-0.7); Absolute Monocytes 0.8 10^3/uL (0.1-0.6); Absolute Neutrophils 5.8 10^3/uL (1.4-6.5); Hematocrit 40.9 % (37.0-47.0); Hemoglobin 14.2 g/dL (12.0-16.0); Mean Corp Hgb Conc. 34.7 g/dL (33.0-37.0); Mean Corpuscular Hgb 31.1 pg (27.0-31.0); Mean Corpuscular Volume 89.5 fL (81.0-99.0); Nucleated Red Blood Cells % 0 %; Platelet Count 291 10^3/uL (130-400); Red Blood Cell Count 4.57 10^6/uL (4.20-5.40); Red Cell Dist. Width 13.2 % (11.5-14.5); White Blood Cell Count 8.8 10^3/uL (4.8-10.8)
[2024-01-20] MEDS: ProAIR HFA INHALER 2 PUFF INH (09:05)
[2024-01-20 09:06] LABS: Blood Urea Nitrogen 11 mg/dl (7-17); Calcium 9.2 mg/dl (8.4-10.2); Carbon Dioxide 28 mmol/L (22-30); Chloride 104 mmol/L (98-107); Estimated Creatinine Clearance > 125 ml/min; Glucose 119 mg/dl (70-99); Magnesium 1.7 mg/dl (1.6-2.3); Potassium 3.5 mmol/L (3.5-5.1); Sodium 139 mmol/L (135-145); eGFR > 60.00
--- NOTE | 2024-01-20 09:11 | W.PN.HOSP.TC ---
Today's Communication/Plan
-
IV fluids. Supportive care.
Assessment / Plan
Assessment / Plan
Physical exam:
General: Acutely ill
HEENT: Normocephalic, Atraumatic and Dry Mucous Membranes
Respiratory: Clear to Auscultation; Negative Wheezes, Rales or Rhonchi
Cardiac: Regular Rhythm and S1/S2
GI: Soft, mild tender and Nondistended
Musculoskeletal: No Clubbing, No Cyanosis and No Edema
Neuro: Awake, Alert and Oriented
Psych: Calm
A/P:
Intractable abdominal pain nausea vomiting and diarrhea:
-Likely etiology Zepbound/Tirzepatide related (weight loss medicine that she takes parenterally every week and had it this week). Also possibility of gastroenteritis, cyclic vomiting, and cannabinoid hyperemesis are possibilities I think at this
point less likely.
-Continue n.p.o. and may be trial clear liquids tomorrow if improving
-Start Compazine which works best for her
-Restart IV fluids, normal saline 85 cc/h
-Reviewed CT scan of abdomen
-Discussed with mother at bedside today
Leukocytosis:
-Reactive I am back to normal today
Microscopic hematuria:
-UA with microscopic hematuria send follow-up with urology as outpatient. Few urine bacteria & no pyuria-does not appear to be infectious.
Diabetes mellitus type 1:
-Okay to restart insulin pump. She is hesitant and has not started since she has not been eating.
Minerva's disease:
-Restart Korlym (Mifepristone)
Opioid use disorder:
-Currently not on any narcotics
Bipolar disorder:
On Abilify as outpatient
Hyperlipidemia:
Continue statin
Peripheral neuropathy:
Continue Lyrica
Asthma:
Stable
DVT proph- Lovenox
Full Code
Anticipated Discharge: 24 - 48 hours
Subjective/Interval History
-
Date of Service: January 20, 2024
Patient still having nausea and abdominal pain. No diarrhea today. Afebrile
Objective Data
-
Labs:
Laboratory Results
01/20/24
07:01
WBC 8.8
Hgb 14.2
Hct 40.9
Plt Count 291
Sodium 139
Potassium 3.5
Chloride 104
Carbon Dioxide 28
BUN 11
Creatinine 0.6
Glucose 119 H
Calcium 9.2
Vital Signs:
Vital Signs
Temp Pulse Resp BP Pulse Ox
98.6 F 100 16 149/81 99
01/20/24 07:35 01/20/24 09:08 01/20/24 09:08 01/20/24 07:35 01/20/24 09:08
I&O
01/19/24 01/20/24 01/21/24
06:59 06:59 06:59
Intake Total 1115 / 1115
Balance 1115 / 1115
Review of Systems
-
All other systems: Reviewed and negative
--- NOTE | 2024-01-20 09:45 | PTCARENOTE ---
Patient c/o of severe nausea with emesis unrelieved by Zofran. made aware. IM Phenergan ordered.
[2024-01-20] MEDS: PHENERGAN 25 MG IM (09:52)
[2024-01-20 10:24] LABS: Glycohemoglobin (HgbA1c) 8.4 % (4.0-5.6)
[2024-01-20] MEDS: NSS 1000 IV ×2 (11:24→23:26)
--- NOTE | 2024-01-20 11:30 | CM ---
Initial assessment completed with patient and father. Patient not well, feeling very nauseous. Patient and her 10 y/o son live with her parents in a 3 story townhome with basement. Patient B/B on upper level loft, 1/2 bath on , 4-5 steps to
enter home, no DME or in home services, [employer] was independent, drove and does not work, Psychiatric history of bipolar disease. Pharmacy is [facility] in [place]. Uncertain of PCP name.
[2024-01-20 11:42] VITALS: BP 152/94
[2024-01-20 11:45] LABS: Glucose - Point of Care 153 mg/dl (70-99)
[2024-01-20] MEDS: NON-FORMULARY ITEM PO (11:53)
[2024-01-20] MEDS: COMPAZINE 5 MG IV ×2 (11:55→18:06)
[2024-01-20] MEDS: NON-FORMULARY ITEM 300 MG PO (11:58)
--- NOTE | 2024-01-20 12:00 | PTCARENOTE ---
Pt. states Zofran making nausea worse. Pt. still having intractable N/V MD at bedside. Compazine ordered prn q 6 hrs.
[2024-01-20 15:20] VITALS: BP 178/105
[2024-01-20 17:39] LABS: Glucose - Point of Care 153 mg/dl (70-99)
[2024-01-20] MEDS: LOVENOX 40 MG SC (17:40)
[2024-01-20 19:17] VITALS: BP 167/96
[2024-01-20] MEDS: ATIVAN 1 MG IV (20:33)
[2024-01-20 21:43] LABS: Glucose - Point of Care 158 mg/dl (70-99)
[2024-01-20] MEDS: PT'S OWN INSULIN PUMP - NovoLOG 0.0500000000000000028 UNIT SC (22:21)
[2024-01-20 23:26] VITALS: BP 145/79
[2024-01-21] VITALS (7 sets, daily range): BP systolic 149–201; BP diastolic 84–114
[2024-01-21] MEDS: COMPAZINE 5 MG IV ×3 (01:10→17:43)
[2024-01-21 06:36] LABS: Blood Urea Nitrogen 15 mg/dl (7-17); Carbon Dioxide 29 mmol/L (22-30); Chloride 99 mmol/L (98-107); Estimated Creatinine Clearance > 125 ml/min; Glucose 137 mg/dl (70-99); Magnesium 1.7 mg/dl (1.6-2.3); Potassium 2.9 mmol/L (3.5-5.1); Sodium 138 mmol/L (135-145); eGFR > 60.00
[2024-01-21] MEDS: LYRICA PO (08:13)
[2024-01-21] MEDS: LIPITOR 10 MG PO (08:13)
[2024-01-21] MEDS: NON-FORMULARY ITEM PO ×2 (08:14→10:31)
[2024-01-21] MEDS: PT'S OWN INSULIN PUMP - NovoLOG SC ×4 (08:14→22:39)
[2024-01-21 08:44] LABS: Glucose - Point of Care 137 mg/dl (70-99)
--- NOTE | 2024-01-21 08:58 | W.PN.HOSP.TC ---
Today's Communication/Plan
-
IV fluids. Replete electrolytes. GI consult.
Assessment / Plan
Assessment / Plan
Physical exam:
General: Acutely ill
HEENT: Normocephalic, Atraumatic and Dry Mucous Membranes
Respiratory: Clear to Auscultation; Negative Wheezes, Rales or Rhonchi
Cardiac: Regular Rhythm and S1/S2
GI: Soft, mild tender and Nondistended
Musculoskeletal: No Clubbing, No Cyanosis and No Edema
Neuro: Awake, Alert and Oriented
Psych: Calm
A/P:
Intractable abdominal pain nausea vomiting and diarrhea:
-Unclear etiology but suspected Zepbound/Tirzepatide related (weight loss medicine that she takes parenterally every week and had it this week). Also possibility of gastroenteritis, cyclic vomiting, and cannabinoid hyperemesis are possibilities I
think at this point less likely.
-Continue n.p.o. and will request GI consultation today for further advice. Greyson texted GI today.
-Continue Compazine which works best for her
-Continue IV fluids, normal saline 85 cc/h
-Reviewed CT scan of abdomen
-Discussed with father yesterday
Hypokalemia:
-Replete intravenously and oral and trend
Hypomagnesemia:
-Replete intravenously and trend
Hypertension or elevated blood pressure:
-IV hydralazine as needed
-Will add oral amlodipine low-dose 2.5 mg daily and reevaluate if she will need it down the road
Leukocytosis:
-Reactive and back to normal
Microscopic hematuria:
-UA with microscopic hematuria send follow-up with urology as outpatient. Few urine bacteria & no pyuria-does not appear to be infectious.
Diabetes mellitus type 1:
-Okay to restart insulin pump. She is hesitant and has not started since she has not been eating.
Minerva's disease:
-Restart Korlym (Mifepristone)
Opioid use disorder:
-Currently not on any narcotics
Bipolar disorder:
On Abilify as outpatient
Hyperlipidemia:
Continue statin
Peripheral neuropathy:
Continue Lyrica
Asthma:
Stable
DVT proph- Lovenox
Full Code
Anticipated Discharge: 24 - 48 hours
Subjective/Interval History
-
Date of Service: January 21, 2024
Patient continues to have abdominal pain and persistent nausea. Afebrile.
Objective Data
-
Labs:
Laboratory Results
01/21/24
05:17
Sodium 138
Potassium 2.9 L
Chloride 99
Carbon Dioxide 29
BUN 15
Creatinine 0.6
Glucose 137 H
Calcium 9.0
Vital Signs:
Vital Signs
Temp Pulse Resp BP Pulse Ox
98.6 F 96 18 185/113 95
01/21/24 08:28 01/21/24 08:28 01/21/24 08:28 01/21/24 08:28 01/21/24 08:28
I&O
01/20/24 01/21/24 01/22/24
06:59 06:59 06:59
Intake Total 1115 / 1115 620 / 620
Output Total 960 / 960
Balance 1115 / 1115 -340 / -340
[2024-01-21] MEDS: MAGNESIUM SULFATE 50 IV (09:01)
--- NOTE | 2024-01-21 09:21 | PN.DE.MGMTRT ---
Insulin Management
- -
01/21/2024: Diabetes Management Consult for insulin pump:
38 year old female well know to Diabetes team from previous admission of similar complaints and DKA.
PMH includes: Asthma, Neuropathy, Bipolar, Anxiety, Panic disorder, PTSD, borderline personality disorder, benjamin syndrome and T1DM. Pt was admitted on 01/18 with N/V/D x2 days. Prior to admission was using Omni Pod 5 with NovoLog and DexCom G6. A1C
on admission 8.4%, improved from previous A1C of 9.3% in 10/2023. Cr 0.5, eGFR > 60. Chart review indicates that Pt is noted for regular marijuana use and suspected for gastroparesis.
Pt Awake, Alert, oriented, Father at bedside. Pt reports severe abd pain and nausea. She is disheveled and appears to be in acute distress.
States she has not been able to tolerate any food or liquid intake since onset of sx. She is currently not taking anything PO and states she has not needed any insulin bolus and that her blood sugars have been in range. Upon review of her PDM, POD
is set in automated mood, last bolus was adm on 01/19, current glucose is 141 via her CGM and a POC of 137 this AM.
Will make no changes to current pump settings, will closely follow and consider making adjustments if she begins to eat and is noted for Hyperglycemia.
Diabetes History
- -
Type of Diabetes: 1
Pre-Admission Diabetes Regimen
01/21/24
05:17
Creatinine 0.6
Lab Results
Hemoglobin A1c 8.4 % (4.0-5.6) H 01/20/24 07:01
Insulin Pump Settings
IP Diabetes Regimen
01/20/24 01/20/24 01/20/24
11:44 17:38 21:39
Glucose
POC Glucose 153 H 153 H 158 H
01/21/24 01/21/24
05:17 08:36
Glucose 137 H
POC Glucose 137 H
Meal type: Dinner
Amount consumed: 80%
Patient Education
[2024-01-21] MEDS: APRESOLINE 10 MG IV ×3 (09:37→16:12)
[2024-01-21] MEDS: NORVASC 2.5 MG PO (09:45)
[2024-01-21] MEDS: LYRICA 150 MG PO ×2 (09:46→20:11)
--- NOTE | 2024-01-21 10:27 | CON.GI ---
Addendum entered and electronically signed by Mesha Tai MD 01/21/24 18:16:
I saw and examined the patient.
The EDGE TRIMMING MACHINE OPERATOR or PA's note was reviewed and I agree with the note.
Comment: 38-year-old female with history of uncontrolled diabetes, on insulin pump, history of prior DKA's, marijuana use presenting with complaints of intractable nausea, vomiting, abdominal pain since Sunday morning. She has had few admissions
for similar symptoms, especially after starting GLP-1 inhibitors, previously with Wegovy and now with Zepbound which was just started last Sunday. In between episodes, she reports that she was doing well except in October after her trip to
[place], she had similar episode. This admission, she was noted to have hemoglobin A1c of 8.4. Also noted is a potassium of 2.9.
She complains of intractable nausea and vomiting, followed by abdominal pain from vomiting. In between episodes, minimal acid reflux, takes Tums as needed. History of chronic constipation, currently on Motegrity and 2 Senokot and has about 2-3
bowel movements a week. Takes ibuprofen 800 mg once a week. No weight loss. Recent diagnosis of Minerva's syndrome.
-Intractable nausea, vomiting with abdominal pain
Likely combination of GLP-1 inhibitors, ? diabetic gastroparesis, marijuana use
Currently on clear liquid diet
Okay for Compazine [id number]-iazze and Zofran as needed.
Plan is for gastric emptying study for tomorrow. N.p.o. past midnight and hold Compazine dose prior to the gastric emptying study for tomorrow.
Continue PPI.
Monitor electrolytes and replete.
Will need endoscopy once nausea and vomiting episode resolves.
-Chronic constipation
On Motegrity and Senokot-currently on hold in the hospital given vomiting episodes.
Will follow
Original Note:
Consultation
-
Date/Time Consultation Requested: 01/21/24 @ 08:34
Date/Time Consultation Performed: 01/21/24 @ 10:30
Requesting Provider: Dr. Tolbert
Performing Provider: FAITH Colvin; Dr. Mesha Tai
Reason for Consultation: persistent abd pain n/v evaluation
Medical History
Chief Complaint / HPI
Chief Complaint: intractable nausea, vomiting, diarrhea
History of Present Illness:
The patient is a 38-year-old female with a past medical history significant for IDDM with prior admissions with DKA on an insulin pump, neuropathy, asthma, bipolar disorder, anxiety, hypercholesterolemia, recently diagnosis minerva syndrome started
on Korlym, IBS, regular marijuana use, who presents to the emergency room with complaints of intractable nausea, vomiting, diarrhea, abdominal pain, which we are being asked to evaluate for. Upon review of prior records, the patient was seen in
October for similar presentation with nausea, vomiting, and diarrhea. She also had complaints of abdominal pain at that time. It was thought that she had gastroenteritis secondary to recent travel to [place] versus gastroparesis secondary to
uncontrolled diabetes versus cannabis hyperemesis syndrome secondary to marijuana use. Her hemoglobin A1c was 9.3 at the time of admission at that time. She was advised to optimize her glycemic control and undergo a follow-up outpatient for a
formal gastric emptying study to evaluate for gastroparesis. She did improve clinically with antinausea medication including Compazine and Zofran and her diet was advanced. She was advised to follow-up with her senior fund accountant and was due to start
on treatment for Minerva syndrome at that time as well. Noted also with a history of constipation on Motegrity. She had prior anorectal manometry with poor rectal push and increased anal sphincter pressure with pseudo defecation maneuver and was
advised on pelvic floor therapy and fiber supplementation. Notably with prior admissions in 2022 with similar symptoms thought to be secondary to GLP-1 therapy as she had been started on Wegovy prior to her admission. I did see her in the office
in November with plans for a formal gastric emptying study to confirm gastroparesis diagnosis. She had also been set up for an endoscopy which is scheduled on January [address] Holley outpatient. She was again advised on optimizing her glycemic
control and following up with her senior fund accountant. I did further recommend marijuana cessation and eating smaller more frequent meals throughout the day. Today she reports she was doing well since her last admission, but notes that her
senior fund accountant started her on a new medication called Zepbound to which her first dose was on Sunday. She reports that she had been gaining weight steadily and was started on this to help with her weight loss. She notes the day after starting
this medication she had an episode of vomiting but overall was feeling well otherwise. Subsequently on Sunday she developed severe nausea with vomiting of multiple episodes throughout the day into Sunday. She notes she was unable to keep
anything down due to ongoing vomiting. She also developed diarrhea which subsequently stopped. She denies any melena, hematochezia, or hematemesis. She also admits to chills but denies fevers. She did not have any nausea medications at home but
reports increased heartburn symptoms subsequent to her vomiting. She does also admit to diffuse abdominal pain in the upper abdomen. She also notes she was recently started on a medication called Korlym about a month and a half ago for her Minerva
syndrome which she has been tolerating well without side effects. Her last bowel movement was on Sunday. She denies alcohol use. She denies any NSAID use. No significant family history of GI cancers or disorders. She has never had an
endoscopy or colonoscopy. She was supposed to undergo an outpatient gastric emptying study but reports she lost the sheet and never made the appointment. Upon admission, routine labs showed a WBC 12.8, hemoglobin 14.6, platelets 307,000, sodium
139, potassium 3.5, BUN 11, creatinine 0.6, hemoglobin A1c 8.4, Magnesium 1.7, lipase 54, total bilirubin 1.0, AST 31, ALT 28, alk phos 82, hCG negative. She underwent a CT of the abdomen pelvis with IV contrast only showing no significant findings
to explain her symptoms with other nonurgent findings as noted below. She was made n.p.o., placed on IV fluids, IV emetics as needed, and admitted for further evaluation. Due to her ongoing GI symptoms we were asked to evaluate.
Past Medical History
Past Medical History: Asthma, Hypercholesterolemia, IDDM, Psychiatric (Bipolar disorder, PTSD, borderline personality disorder) and Other (Anasco syndrome, neuropathy)
Past Surgical History: and Urological (lithtripsy for kidney stone removal 2012)
Social History
Tobacco: Non-Smoker
Alcohol: None
Drug: Marijuana and Other (History of methamphetamine in urine drug screen in the past)
Personal: Single
Living: With Family
Family History
Family History: Reviewed & Not Pertinent
Allergies / Home Medications
Allergy/AdvReac Type Severity Reaction Status Date / Time
bupropion [From Wellbutrin] Allergy Rash Verified 11/05/23 08:30
montelukast [From Singulair] Allergy Rash Verified 11/05/23 08:30
�Medication �Instructions �Recorded
prucalopride 2 mg tablet 2 mg PO DAILY Gastrointestinal 02/19/23
(Motegrity) Issue
Medical Marijuana 0 inh inhalation BIDPRN PRN mild 11/05/23
pain/sleep/anxiety
albuterol sulfate 90 mcg/actuation 2 puff inhalation R Q4HPRN PRN sob 11/05/23
aerosol inhaler (Ventolin HFA)
aripiprazole 400 mg suspension, 400 mg IM Q3W Mental Health/Anxiety 11/05/23
extended rel.intramuscular syringe
(Abiliashish Maintena)
atorvastatin 10 mg tablet 10 mg PO DAILY High Cholesterol 11/05/23
cholecalciferol (vitamin D3) 125 125 mcg PO DAILY Supplement 11/05/23
mcg (5,000 unit) tablet
insulin aspart U-100 100 unit/mL 0 unit SC .VIA PUMP Diabetes 11/05/23
subcutaneous solution
melatonin 10 mg tablet,extended 10 mg PO HSPRN PRN sleep 11/05/23
release
pregabalin 150 mg capsule 150 mg PO BID Pain 11/05/23
mifepristone 300 mg tablet (Korlym) 300 mg PO DAILY 01/19/24
tirzepatide (weight loss) 2.5 2.5 mg SC QWEEK weight loss 01/19/24
mg/0.5 mL subcutaneous pen
injector (Zepbound)
potassium chloride 10 mEq oral 20 meq PO BID Electrolyte Repletion 01/21/24
packet
Review of Systems
-
History Source: Patient
Constitutional: Reports Chills
EENT: Reports No Symptoms
Respiratory: Reports No Symptoms
Cardiac: Reports No Symptoms
Abdomen/GI: Reports Abdominal Pain, Nausea, Vomiting and Diarrhea
: Reports No Symptoms
Musculoskeletal: Reports No Symptoms
Skin: Reports No Symptoms
Neurological: Reports No Symptoms
Vital Signs
Temp Pulse Resp BP Pulse Ox
98.6 F 96 18 185/113 95
01/21/24 08:28 01/21/24 09:45 01/21/24 08:28 01/21/24 09:45 01/21/24 08:28
Physical Exam
Exam
General: Well Developed, Pain, Poor Appetite and Other (ill appearing, in distress due to abdominal pain, disheveled )
HEENT: Normocephalic, Anicteric and Atraumatic
Respiratory: Clear
Cardiac: S1/S2 and Regular Rhythm (tachycardia)
Breast: Deferred by me
GI: Soft, Non Distended, Normal Bowel Sounds and Tender (diffuse abdominal tenderness)
Rectal: Deferred by Provider
Musculoskeletal: No Edema
Skin: Warm and Dry
Neuro: Awake, Alert and Oriented
Psych: Other (restless, tearful)
Results
WBC 8.8 10^3/uL (4.8-10.8) 01/20/24 07:01
Hgb 14.2 g/dL (12.0-16.0) 01/20/24 07:01
Hct 40.9 % (37.0-47.0) 01/20/24 07:01
MCV 89.5 fL (81.0-99.0) 01/20/24 07:01
Plt Count 291 10^3/uL (130-400) 01/20/24 07:01
Absolute Neuts (auto) 5.8 10^3/uL (1.4-6.5) 01/20/24 07:01
Sodium 138 mmol/L (135-145) 01/21/24 05:17
Potassium 2.9 mmol/L (3.5-5.1) L 01/21/24 05:17
Chloride 99 mmol/L (98-107) 01/21/24 05:17
Carbon Dioxide 29 mmol/L (22-30) 01/21/24 05:17
BUN 15 mg/dl (7-17) 01/21/24 05:17
Creatinine 0.6 mg/dL (0.6-1.0) 01/21/24 05:17
Calcium 9.0 mg/dl (8.4-10.2) 01/21/24 05:17
Total Bilirubin 1.0 mg/dl (0.2-1.3) 01/19/24 14:48
AST 31 U/L (14-36) 01/19/24 14:48
ALT 28 U/L (0-35) 01/19/24 14:48
Alkaline Phosphatase 82 U/L (38-126) 01/19/24 14:48
Lipase 54 U/L (23-300) 01/19/24 14:48
Diagnostic Image Results:
01/19/24 CT A/P w/IV: IMPRESSION: 'No definitive acute pathology of the abdomen or pelvis identified. Hepatic fatty infiltration. Stable. Findings suggesting benign bilateral adrenal hyperplasia. Stable. Appendicoliths. Increased in number. No
secondary findings to suggest acute appendicitis. Mild diffuse bladder wall thickening likely at least partially due to limited distention. Cystitis and bladder outlet obstruction not excluded. New.'
Prior GI Procedures:
EGD: none
Colonoscopy: none
Assessment / Plan
-
The patient is a 38-year-old female with a past medical history significant for IDDM with prior admissions with DKA on an insulin pump, neuropathy, asthma, bipolar disorder, anxiety, hypercholesterolemia, recently diagnosis minerva syndrome started
on Korlym, IBS, regular marijuana use, who presents to the emergency room with complaints of intractable nausea, vomiting, diarrhea, abdominal pain, which we are being asked to evaluate for. Elevated several prior admissions this year and last
year for similar presentation with nausea, vomiting, diarrhea, abdominal pain. Suspected gastroparesis versus cannabis hyperemesis syndrome. She is an uncontrolled diabetic, follows with endocrinology outpatient and recently started on Zepbound on
Sunday with subsequent profuse nausea, vomiting, and abdominal pain. She has had ongoing symptoms since Sunday, intolerant of p.o. intake. Noted with mild leukocytosis on admission without fevers. This morning with potassium of 2.9 otherwise
electrolytes and renal function within normal limits. CT of the abdomen pelvis was done showing no acute findings. She continues with ongoing symptoms despite antiemetics and bowel rest.
Problem list:
-Intractable nausea, vomiting, abdominal pain
-Type 1 diabetes with elevated hemoglobin A1c and prior admissions with DKA
-Regular marijuana use
-Recent diagnosis of Minerva syndrome started on therapy with Korlym
-Suspected gastroparesis
-Leukocytosis, resolved
-Hypokalemia
Other pertinent medical history:
-Neuropathy
-Asthma
-Bipolar disorder
-Anxiety
-Hyperlipidemia
-Chronic constipation on Motegrity
Recommendations:
-Etiology of intractable nausea, vomiting, and abdominal pain likely secondary to gastroparesis with recent addition of a GLP-1 medication Zepbound versus cannabis hyperemesis syndrome versus other.
---CT showing no sign of obstructive process.
-Add PPI IV BID
-NPO until vomiting has resolved
-Continue anti-emetics, would order around the clock to ensure she is getting it with the severity of her symptoms. I would be hesitant to start on Reglan given her use of Abilify which interacts and is not recommended for combination use. Will
review with Dr. Tai and adjust medications.
-Hold further Zepbound, she has been intolerant of GLP-1 in the past with the same symptoms. This is likely going to keep happening if she goes on them (hx Kiley January 2023 with similar admission).
-Continue Motegrity when tolerating PO and as long as she is not having further diarrhea
-She needs formal GES but will hold off for now
-Consider inpatient EGD given her symptoms, pending clinical course
-Advised on marijuana cessation, but she feels this helps her
-Check UDS
-Correct electrolytes as per hospitalist
-TT sent to Dr. Tolbert regarding her IV fluids as her father was concerned that she was not getting dextrose given her hx of diabetes
-Will need follow-up OP for fatty liver, seen on CT scan
-If she improves will proceed with OP EGD scheduled 01/[address] Holley. F/u appt 03/24 scheduled as well.
Data Reviewed
-
CT Scan: Report Reviewed by me
Old Records: Reviewed
-
-
Thank you for consultation and allowing me to participate in the patient's care. Please call the chronometer tester GI physician during the after hours with any questions or concerns.
[2024-01-21] MEDS: NSS (PRESERVATIVE FREE) 10 ML IV ×2 (11:20→20:12)
[2024-01-21] MEDS: KCL 270 MEQ IV (11:20)
[2024-01-21] MEDS: PROTONIX IV 40 MG IV ×2 (11:20→20:11)
[2024-01-21] MEDS: NSS IV (11:38)
[2024-01-21 12:09] LABS: Glucose - Point of Care 141 mg/dl (70-99)
[2024-01-21 12:12] LABS: Amphetamines Negative (Negative); Barbiturates Negative (Negative); Buprenorphine Negative (Negative); Cocaine Negative (Negative); Methadone Negative (Negative); Methamphetamines Negative (Negative); Opiates Negative (Negative); Phencyclidine Negative (Negative); Tricyclic Antidepressants Negative (Negative)
[2024-01-21 12:13] LABS: Benzodiazepines Positive (Negative); Marijuana Positive (Negative)
[2024-01-21 12:34] LABS: Fentanyl, Urine Negative (Negative)
[2024-01-21] MEDS: ZOFRAN 4 MG IV (15:36)
[2024-01-21] MEDS: D5/0.45%NSS with KCL 10 MEQ 1000 IV (15:36)
--- NOTE | 2024-01-21 15:48 | CM ---
Reviewed the chart notes. CM continues to be available to patient/family and is monitoring medical plan for needs at discharge.
Plan: Discharge to home when medically stable. No needs anticipated.
[2024-01-21] MEDS: DILAUDID 1 MG IV (16:11)
--- NOTE | 2024-01-21 16:24 | PTCARENOTE ---
pt feeling worse with symptoms. One time dose of dilauded given or abdominal pain and a stat order for hydrolizine given for pressure of 200/108. GI notified.
[2024-01-21 16:56] LABS: Glucose - Point of Care 151 mg/dl (70-99)
[2024-01-21] MEDS: LOVENOX 40 MG SC (17:43)
[2024-01-21] MEDS: NSS (PRESERVATIVE FREE) 0.5 ML IV (20:10)
[2024-01-21] MEDS: ATIVAN 1 MG IV (20:11)
[2024-01-21 22:00] LABS: Glucose - Point of Care 157 mg/dl (70-99)
[2024-01-22] VITALS (9 sets, daily range): BP systolic 152–214; BP diastolic 87–130; BMI 29.9
[2024-01-22] MEDS: COMPAZINE 5 MG IV ×4 (00:25→16:47)
[2024-01-22] MEDS: D5/0.45%NSS with KCL 10 MEQ 1000 IV ×2 (00:25→11:12)
[2024-01-22] MEDS: APRESOLINE 10 MG IV ×3 (04:15→21:12)
[2024-01-22] MEDS: COMPAZINE IV (05:00)
[2024-01-22 05:39] LABS: Glucose - Point of Care 165 mg/dl (70-99)
[2024-01-22 06:37] LABS: % Basophils 0.5 % (0-2); % Eosinophils 0.9 % (0-6); % Immature Granulocytes 0.6 % (0-0.5); % Lymphocytes 13.5 % (20.5-51.1); % Monocytes 8.6 % (1.7-9.3); % Neutrophils 75.9 % (42.2-75.2); Absolute Basophils 0.1 10^3/uL (0-0.2); Absolute Eosinophils 0.1 10^3/uL (0-0.7); Absolute Immature Granulocytes 0.1 10^3/uL (0-0.05); Absolute Lymphocytes 1.6 10^3/uL (1.2-3.4); Absolute Neutrophils 9.1 10^3/uL (1.4-6.5); Hematocrit 39.2 % (37.0-47.0); Mean Corp Hgb Conc. 35.7 g/dL (33.0-37.0); Mean Corpuscular Hgb 31.5 pg (27.0-31.0); Mean Corpuscular Volume 88.1 fL (81.0-99.0); Nucleated Red Blood Cells % 0 %; Platelet Count 255 10^3/uL (130-400); Red Blood Cell Count 4.45 10^6/uL (4.20-5.40); Red Cell Dist. Width 12.5 % (11.5-14.5)
--- NOTE | 2024-01-22 06:51 | W.PN.GI.CBS2 ---
Today's Communication / Plan
-
See assessment and plan for details.
Assessment / Plan
-
1. Nausea/vomiting: With likely multifactorial chronic nausea related to underlying diabetes, possibly cannabis hyperemesis as well, now acutely worse after GLP-1 after she had a reaction in the past to GLP-1. She is improving, still having some
dry heaves overnight. At this point we will cancel gastric emptying today as would not likely be helpful in the acute setting, may be more helpful in the future after off GLP-1 to assess for underlying diabetic gastroparesis. Would continue
supportive care now, IV fluids, antiemetics, restart clear liquids, continue glycemic control. Will continue planned EGD in January, sooner if symptoms do not continue to improve.
Subjective
Subjective
Date of Service: January 22, 2024
Patient still with some dry heaving overnight though overall feels improved, no significant abdominal pain, fever or chills.
Objective
Data Reviewed
Laboratory Data:
Laboratory Results
Magnesium 1.7 mg/dl (1.6-2.3) 01/21/24 05:17
Total Bilirubin 1.0 mg/dl (0.2-1.3) 01/19/24 14:48
AST 31 U/L (14-36) 01/19/24 14:48
ALT 28 U/L (0-35) 01/19/24 14:48
Alkaline Phosphatase 82 U/L (38-126) 01/19/24 14:48
Lipase 54 U/L (23-300) 01/19/24 14:48
Vital Signs and I&O:
Vital Signs
Temp Pulse Resp BP Pulse Ox
98.3 F 117 18 162/92 96
01/22/24 03:24 01/22/24 04:15 01/22/24 03:24 01/22/24 04:15 01/22/24 03:24
I&O
01/20/24 01/21/24 01/22/24
06:59 06:59 06:59
Intake Total 1115 / 1115 620 / 620 1120 / 1120
Output Total 960 / 960 200 / 200
Balance 1115 / 1115 -340 / -340 920 / 920
Physical Exam
Physical Exam
General: NAD
Abdomen: normal bowel sounds, soft, no tenderness, no masses or bruits, no ascites
[2024-01-22 07:01] LABS: Blood Urea Nitrogen 14 mg/dl (7-17); Calcium 8.9 mg/dl (8.4-10.2); Carbon Dioxide 25 mmol/L (22-30); Chloride 100 mmol/L (98-107); Estimated Creatinine Clearance > 125 ml/min; Glucose 168 mg/dl (70-99); Magnesium 1.9 mg/dl (1.6-2.3); Sodium 136 mmol/L (135-145); eGFR > 60.00
[2024-01-22 07:13] LABS: Glucose - Point of Care 172 mg/dl (70-99)
--- NOTE | 2024-01-22 07:27 | PN.DE.MGMTRT ---
Insulin Management
- -
01/22/2024: Diabetes Management Consult for insulin pump:
Patient admitted 01/18 with abdominal pain intractable vomiting, known to Diabetes team from previous admission of similar complaints and DKA.
PMH includes: Asthma, Neuropathy, Bipolar, Anxiety, Panic disorder, PTSD, borderline personality disorder, benjamin syndrome and T1DM. Prior to admission was using Omni Pod 5 with NovoLog and DexCom G6. A1C on admission 8.4%, Cr 0.6, eGFR > 60. Chart
review indicates that Pt is noted for regular marijuana use and suspected for gastroparesis.
Glucose yesterday ranged 137 to 157, no corrections noted. She is currently not taking anything PO and states she has not needed any insulin bolus and that her blood sugars have been in range. Upon review of her PDM, POD is set in automated mood,
last bolus was adm on 01/19, current glucose is 172, POC. I did ask patient to take a correction which she did .55.
Pump settings as follows:
Basal Correction Carb ratio Target
12a to 12a 1.7 35 4.5 110
24 hour basal total 46.8
Will make no changes to current pump settings. Pod has 47 units of insulin, encouraged patient to change POD by 12 noon, she is agreeable.
Diabetes History
- -
Type of Diabetes: 1
Pre-Admission Diabetes Regimen
01/22/24
06:10
Creatinine 0.6
Lab Results
Hemoglobin A1c 8.4 % (4.0-5.6) H 01/20/24 07:01
Insulin Pump Settings
IP Diabetes Regimen
01/21/24 01/21/24 01/21/24
08:36 12:07 16:55
Glucose
POC Glucose 137 H 141 H 151 H
01/21/24 01/22/24 01/22/24
21:41 05:37 06:10
Glucose 168 H
POC Glucose 157 H 165 H
01/22/24
07:12
Glucose
POC Glucose 172 H
Meal type: Dinner
Amount consumed: 100%
Patient Education
--- NOTE | 2024-01-22 07:29 | W.PN.HOSP.TC ---
Today's Communication/Plan
-
IV fluids. Replete potassium. Start clear liquid diet and advance as tolerated.
Assessment / Plan
Assessment / Plan
Physical exam:
General: Distress due to nausea
HEENT: Normocephalic, Atraumatic and Dry Mucous Membranes
Respiratory: Clear to Auscultation; Negative Wheezes, Rales or Rhonchi
Cardiac: Regular Rhythm and S1/S2
GI: Soft, mild tender and Nondistended
Musculoskeletal: No Clubbing, No Cyanosis and No Edema
Neuro: Awake, Alert and Oriented
Psych: Calm
A/P:
Intractable abdominal pain nausea vomiting and diarrhea:
-Unclear etiology but suspected Zepbound/Tirzepatide related. Also gastroparesis, cyclic vomiting, and cannabinoid hyperemesis are possibilities.
-Appreciated GI consult and follow up.
-Admit n.p.o. -->GI started her on clear liquid diet today.
-No role for gastric emptying study at this juncture especially with use of GLP-1 recently. Perhaps outpatient.
-Defer need for endoscopy to GI. Scheduled for EGD as outpatient.
-Continue Compazine which works best for her
-Continue IV fluids, D5 half normal saline with potassium at 85 cc/h
-Reviewed CT scan of abdomen
-Discussed with father yesterday
Hypokalemia:
-Replete intravenously and oral and trend
Hypomagnesemia:
-Replete and trend as needed
Hypertension or elevated blood pressure:
-IV hydralazine as needed
-Added oral amlodipine low-dose 2.5 mg daily and reevaluate if she will need it down the road. She might not need once her GI symptoms improved.
Leukocytosis:
-Reactive
-Trend
Microscopic hematuria:
-UA with microscopic hematuria send follow-up with urology as outpatient. Few urine bacteria & no pyuria-does not appear to be infectious.
Diabetes mellitus type 1:
-Okay to restart insulin pump. She is hesitant and has not started since she has not been eating.
Minerva's disease:
-Restarted Korlym (Mifepristone)
Opioid use disorder:
-Currently not on any narcotics
Bipolar disorder:
On Abilify as outpatient
Hyperlipidemia:
Continue statin
Peripheral neuropathy:
Continue Lyrica
Asthma:
Stable
DVT proph- Lovenox
Full Code
Anticipated Discharge: 24 - 48 hours
Subjective/Interval History
-
Date of Service: January 22, 2024
Patient still having nausea and abdominal discomfort. She also having vomiting. No diarrhea. Afebrile
Objective Data
-
Labs:
Laboratory Results
01/22/24
06:10
WBC 12.0 H
Hgb 14.0
Hct 39.2
Plt Count 255
Sodium 136
Potassium 3.0 L
Chloride 100
Carbon Dioxide 25
BUN 14
Creatinine 0.6
Glucose 168 H
Calcium 8.9
Vital Signs:
Vital Signs
Temp Pulse Resp BP Pulse Ox
98.3 F 117 18 162/92 96
01/22/24 03:24 01/22/24 04:15 01/22/24 03:24 01/22/24 04:15 01/22/24 03:24
I&O
01/21/24 01/22/24 01/23/24
06:59 06:59 06:59
Intake Total 620 / 620 1120 / 1120
Output Total 960 / 960 200 / 200
Balance -340 / -340 920 / 920
[2024-01-22] MEDS: PROTONIX IV 40 MG IV ×2 (07:47→20:06)
[2024-01-22] MEDS: NSS (PRESERVATIVE FREE) 10 ML IV ×2 (07:47→20:07)
[2024-01-22] MEDS: LIPITOR PO ×2 (07:48→18:26)
[2024-01-22] MEDS: NORVASC 2.5 MG PO (07:48)
[2024-01-22] MEDS: LYRICA 150 MG PO ×2 (07:48→20:06)
[2024-01-22] MEDS: KCL 270 MEQ IV (07:48)
[2024-01-22] MEDS: PT'S OWN INSULIN PUMP - NovoLOG SC ×2 (07:51→22:23)
[2024-01-22] MEDS: NON-FORMULARY ITEM PO (07:57)
[2024-01-22] MEDS: NSS (PRESERVATIVE FREE) 0.5 ML IV (09:09)
[2024-01-22] MEDS: ATIVAN 1 MG IV (09:09)
[2024-01-22] MEDS: PT'S OWN INSULIN PUMP - NovoLOG 0.550000000000000044 UNIT SC (09:43)
--- NOTE | 2024-01-22 10:25 | CM ---
Reviewed the chart notes and spoke with the patient at the bedside. LOC to inpatient - patient informed. CM continues to be available to patient/family and is monitoring medical plan for needs at discharge.
Plan: Discharge to home with no anticipated needs being identified at this time.
--- NOTE | 2024-01-22 10:30 | PTCARENOTE ---
the pt is tachycardic in the 120's to 130's, the RN was notified
--- NOTE | 2024-01-22 10:31 | PTCARENOTE ---
this RN entered the pts room to obtain the pts vital signs, this RN attempted to obtain blood pressure on LFA per the pts request and the pt would not sit still for the blood pressure, this RN kindly asked the pt if she could keep her arm still and
the pt stated, 'No i don't want to i know it's going to be high anyway', this RN educated the pt on the importance of keeping her arm still in order to obtain an accurate blood pressure and the pt refused to, the pts father entered the room and
asked for this RN's name and this RN provided the pts father with this RN's name and the pts father asked this RN, 'Well the blood pressure is high what are you going to do about it? and she is in pain are you going to give her something for that?',
this RN notified the pt and the pts father that this RN will notify the nurse and the provider about the pts pain and blood pressure
--- NOTE | 2024-01-22 11:30 | PTCARENOTE ---
Pt. states she has had difficulty urinating since being in the hospital. She denies any pain, discomfort or burning. Md made aware. Bladder scan and straight cath protocol ordered. Bladder scan showed 140 ml at this time.
[2024-01-22 12:17] LABS: Glucose - Point of Care 184 mg/dl (70-99)
[2024-01-22] MEDS: PT'S OWN INSULIN PUMP - NovoLOG 2.95000000000000018 UNIT SC (12:26)
--- NOTE | 2024-01-22 12:27 | PTCARENOTE ---
Pt. resting comfortably in bed. When this RN went to recheck bp, patient stating shes in excruciating pain and not keeping arm still. This rn educated patient on importance of keeping arm still to get an accurate blood pressure reading. Pt still
restless. BP came back to 185/122. PRN IV hydralazine administered at 1110. MD made aware of BP and patient reported pain. No medications ordered to be given at this time.
[2024-01-22] MEDS: TRANDATE 10 MG IV (12:55)
[2024-01-22] MEDS: TORADOL 30 MG IV (12:55)
[2024-01-22 16:39] LABS: Glucose - Point of Care 193 mg/dl (70-99)
[2024-01-22] MEDS: PT'S OWN INSULIN PUMP - NovoLOG 0.650000000000000022 UNIT SC (16:46)
[2024-01-22] MEDS: LOVENOX 40 MG SC (16:47)
[2024-01-22] MEDS: OCEAN, SALINE MIST 2 SPRAYS NASAL (17:39)
--- NOTE | 2024-01-22 18:34 | PTCARENOTE ---
Pt. had 4 episodes of emesis today. Compazine scheduled q 6 hrs. Patient states she is 'feeling better.' Pt sitting up eating water ice.
[2024-01-22 20:56] LABS: Glucose - Point of Care 311 mg/dl (70-99)
[2024-01-22] MEDS: MELATONIN 10 MG PO (21:19)
[2024-01-22] MEDS: NSS with KCL 20 MEQ 1000 IV (21:33)
[2024-01-22] MEDS: ProAIR HFA INHALER 2 PUFF INH (21:51)
[2024-01-23] VITALS (7 sets, daily range): BP systolic 125–195; BP diastolic 62–122
[2024-01-23] MEDS: COMPAZINE 5 MG IV ×4 (00:29→17:37)
[2024-01-23] MEDS: ATIVAN 1 MG IV ×3 (02:31→21:34)
[2024-01-23] MEDS: NSS (PRESERVATIVE FREE) 0.5 ML IV ×3 (02:32→21:34)
--- NOTE | 2024-01-23 06:18 | W.PN.GI.CBS2 ---
Today's Communication / Plan
-
See assessment and plan for details.
Assessment / Plan
-
1. Nausea/vomiting: With likely multifactorial chronic nausea related to underlying diabetes, possibly cannabis hyperemesis as well, now acutely worse after GLP-1 after she had a reaction in the past to GLP-1. She is improving, still having some
dry heaves overnight. Continue clear liquids for this morning, we discussed cannot advance until she is tolerating. She is continuing to improve, and again acutely likely worse after GLP-1 which was about a week ago. She improves and advance
diet, if worsening symptoms and plan endoscopy otherwise we will keep outpatient endoscopy planned next week. Continue glycemic control and supportive care.
Subjective
Subjective
Date of Service: January 23, 2024
Patient feeling better overall, did tolerate some clears yesterday though still had some vomiting and crampy pain overnight. No fevers or chills.
Objective
Data Reviewed
Laboratory Data:
Laboratory Results
Magnesium 1.9 mg/dl (1.6-2.3) 01/22/24 06:10
Total Bilirubin 1.0 mg/dl (0.2-1.3) 01/19/24 14:48
AST 31 U/L (14-36) 01/19/24 14:48
ALT 28 U/L (0-35) 01/19/24 14:48
Alkaline Phosphatase 82 U/L (38-126) 01/19/24 14:48
Lipase 54 U/L (23-300) 01/19/24 14:48
Vital Signs and I&O:
Vital Signs
Temp Pulse Resp BP Pulse Ox
97.7 F 108 16 159/97 98
01/23/24 03:32 01/23/24 03:32 01/23/24 03:32 01/23/24 03:32 01/23/24 03:32
I&O
01/21/24 01/22/24 01/23/24
06:59 06:59 06:59
Intake Total 620 / 620 1120 / 1120 480 / 480
Output Total 960 / 960 200 / 200
Balance -340 / -340 920 / 920 480 / 480
Physical Exam
Physical Exam
General: NAD
Abdomen: normal bowel sounds, soft, no tenderness, no masses or bruits, no ascites
--- NOTE | 2024-01-23 07:35 | PN.DE.MGMTRT ---
Insulin Management
- -
01/23/2024: Diabetes Management Consult for insulin pump:
Patient admitted 01/18 with abdominal pain intractable vomiting, known to Diabetes team from previous admission of similar complaints and DKA.
PMH includes: Asthma, Neuropathy, Bipolar, Anxiety, Panic disorder, PTSD, borderline personality disorder, benjamin syndrome and T1DM. Prior to admission was using Omni Pod 5 with NovoLog and DexCom G6. A1C on admission 8.4%, Cr 0.6, eGFR > 60. Chart
review indicates that Pt is noted for regular marijuana use and suspected for gastroparesis.
Pt awake, alert, oriented, states she is feeling a little better today, less nausea and is tolerating clear liquid diet
States she has been adm bolus for meals and corrections. Glucose yesterday ranged 172 to 311, with corrections.
This AM glucose was 166 POC, and 186(V). Her glucose via CGM is 323 with down trending arrow, last bolus was adm at 8:56 for 12.55 units.
Pump settings as follows:
Basal Correction Carb ratio Target
12a to 12a 1.7 35 4.5 110
24 hour basal total 46.8
Will make no changes to current pump settings. Spoke to pt and asked her to closely monitor her glucose trend, she may need another bolus in an hr if her glucose remains>200. Also emphasized need to document on bedside pump sheet boluses adm at each
meal.
Diabetes History
- -
Type of Diabetes: 1
Pre-Admission Diabetes Regimen
Lab Results
Hemoglobin A1c 8.4 % (4.0-5.6) H 01/20/24 07:01
Insulin Pump Settings
IP Diabetes Regimen
01/22/24 01/22/24 01/22/24
12:16 16:37 20:52
POC Glucose 184 H 193 H 311 H
Meal type: Dinner
Amount consumed: 100%
Patient Education
[2024-01-23 07:36] LABS: Glucose - Point of Care 166 mg/dl (70-99)
[2024-01-23 08:16] LABS: % Basophils 0.9 % (0-2); % Eosinophils 2.6 % (0-6); % Immature Granulocytes 0.7 % (0-0.5); % Lymphocytes 26.4 % (20.5-51.1); % Monocytes 13.5 % (1.7-9.3); % Neutrophils 55.9 % (42.2-75.2); Absolute Basophils 0.1 10^3/uL (0-0.2); Absolute Eosinophils 0.2 10^3/uL (0-0.7); Absolute Lymphocytes 1.5 10^3/uL (1.2-3.4); Absolute Monocytes 0.8 10^3/uL (0.1-0.6); Absolute Neutrophils 3.2 10^3/uL (1.4-6.5); Hematocrit 36.2 % (37.0-47.0); Mean Corp Hgb Conc. 35.9 g/dL (33.0-37.0); Mean Corpuscular Hgb 31.6 pg (27.0-31.0); Mean Corpuscular Volume 87.9 fL (81.0-99.0); Nucleated Red Blood Cells % 0 %; Platelet Count 247 10^3/uL (130-400); Red Blood Cell Count 4.12 10^6/uL (4.20-5.40); Red Cell Dist. Width 12.2 % (11.5-14.5); White Blood Cell Count 5.7 10^3/uL (4.8-10.8)
[2024-01-23] MEDS: PT'S OWN INSULIN PUMP - NovoLOG 12.5500000000000007 UNIT SC (08:26)
[2024-01-23] MEDS: PROTONIX IV 40 MG IV ×2 (08:27→19:58)
[2024-01-23] MEDS: LIPITOR 10 MG PO (08:27)
[2024-01-23] MEDS: NORVASC 2.5 MG PO (08:27)
[2024-01-23] MEDS: LYRICA 150 MG PO ×2 (08:27→19:58)
[2024-01-23] MEDS: NSS (PRESERVATIVE FREE) 10 ML IV ×2 (08:27→19:58)
[2024-01-23] MEDS: APRESOLINE 10 MG IV ×3 (08:30→19:57)
[2024-01-23] MEDS: PT'S OWN INSULIN PUMP - NovoLOG SC ×2 (08:35→21:36)
[2024-01-23] MEDS: NON-FORMULARY ITEM PO (08:35)
[2024-01-23] MEDS: NSS with KCL 20 MEQ 1000 IV ×2 (08:36→21:36)
[2024-01-23 08:42] LABS: Blood Urea Nitrogen 9 mg/dl (7-17); Calcium 8.9 mg/dl (8.4-10.2); Carbon Dioxide 25 mmol/L (22-30); Chloride 104 mmol/L (98-107); Estimated Creatinine Clearance > 125 ml/min; Glucose 186 mg/dl (70-99); Magnesium 1.8 mg/dl (1.6-2.3); Potassium 3.5 mmol/L (3.5-5.1); Sodium 136 mmol/L (135-145); eGFR > 60.00
--- NOTE | 2024-01-23 10:19 | W.PN.HOSP.TC ---
Today's Communication/Plan
-
Continue with fluids for now
Monitor for diet tolerance
GI recs
Monitor blood pressure
Standing IV meds for now
Assessment / Plan
Assessment / Plan
Physical exam:
General: Distress due to nausea
HEENT: Normocephalic, Atraumatic and Dry Mucous Membranes
Respiratory: Clear to Auscultation; Negative Wheezes, Rales or Rhonchi
Cardiac: Regular Rhythm and S1/S2
GI: Soft, mild tender and Nondistended
Musculoskeletal: No Clubbing, No Cyanosis and No Edema
Neuro: Awake, Alert and Oriented
Psych: Calm
A/P:
Intractable abdominal pain nausea vomiting and diarrhea:
-Unclear etiology but suspected Zepbound/Tirzepatide related. Also gastroparesis, cyclic vomiting, and cannabinoid hyperemesis are possibilities.
-Appreciated GI consult and follow up.
-Admit n.p.o. -->GI started her on clear liquid diet today.
-No role for gastric emptying study at this juncture especially with use of GLP-1 recently. Perhaps outpatient.
-Defer need for endoscopy to GI. Scheduled for EGD as outpatient.
-Continue Compazine which works best for her
-Continue IV fluids, D5 half normal saline with potassium at 85 cc/h
Hypokalemia:
-Replete intravenously and oral and trend
Hypomagnesemia:
-Replete and trend as needed
Hypertension or elevated blood pressure:
-IV hydralazine standing
-Patient was started on Norvasc. Patient with history of [place]'s disease and may actually benefit from CHERYL or ARB. Once able to tolerate p.o. appropriately and if blood pressure still elevated.
Leukocytosis:
-Reactive
-Trend
Microscopic hematuria:
-UA with microscopic hematuria send follow-up with urology as outpatient. Few urine bacteria & no pyuria-does not appear to be infectious.
Diabetes mellitus type 1:
-Okay to restart insulin pump. She is hesitant and has not started since she has not been eating.
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
[place]'s disease:
-Restarted Korlym (Mifepristone)
Opioid use disorder:
-Currently not on any narcotics
Bipolar disorder:
On Abilify as outpatient
Hyperlipidemia:
Continue statin
Peripheral neuropathy:
Continue Lyrica
Asthma:
Stable
DVT proph- Lovenox
Full Code
Discussed with patient's father at bedside in detail. Per father, patient has a tendency to leave AMA at times.
Anticipated Discharge: > 48 hours
Subjective/Interval History
-
Date of Service: January 23, 2024
States of nausea
Just drank a little bit of soup and johann ari
Blood pressure remains elevated
Objective Data
-
Labs:
Laboratory Results
01/23/24
07:43
WBC 5.7
Hgb 13.0
Hct 36.2 L
Plt Count 247
Sodium 136
Potassium 3.5
Chloride 104
Carbon Dioxide 25
BUN 9
Creatinine 0.6
Glucose 186 H
Calcium 8.9
Vital Signs:
Vital Signs
Temp Pulse Resp BP Pulse Ox
98.2 F 99 19 194/109 96
01/23/24 08:00 01/23/24 08:30 01/23/24 08:00 01/23/24 08:30 01/23/24 08:00
I&O
01/22/24 01/23/24 01/24/24
06:59 06:59 06:59
Intake Total 1120 / 1120 480 / 480
Output Total 200 / 200
Balance 920 / 920 480 / 480
Data Reviewed
-
Total Time Spent with Patient (in minutes): 58
--- NOTE | 2024-01-23 11:17 | CM ---
Reviewed the chart notes. Per chart, BP remains high. CM continues to be available to patient/family and is monitoring medical plan for needs at discharge.
Plan: Discharge to home when medically stable. No needs anticipated.
[2024-01-23 12:23] LABS: Glucose - Point of Care 247 mg/dl (70-99)
[2024-01-23] MEDS: PT'S OWN INSULIN PUMP - NovoLOG 10 UNIT SC (12:25)
--- NOTE | 2024-01-23 12:33 | PTCARENOTE ---
Pt. bp elevated. made aware. Prn hydralazine given after 0830 bp reading and IV ativan prn given for nausea. Bp still elevated. IV Hydralazine changed from prn to scheduled per . 1200 bp is 195/117. made aware. Will give scheduled
hydralazine at 1300 and and recheck bp.
[2024-01-23 15:22] LABS: Glucose - Point of Care 241 mg/dl (70-99)
[2024-01-23] MEDS: COZAAR 25 MG PO (15:43)
[2024-01-23] MEDS: LOVENOX 40 MG SC (17:37)
[2024-01-23 17:43] LABS: Glucose - Point of Care 212 mg/dl (70-99)
[2024-01-23] MEDS: PT'S OWN INSULIN PUMP - NovoLOG 15.3000000000000007 UNIT SC (18:01)
[2024-01-23] MEDS: ProAIR HFA INHALER 2 PUFF INH (20:25)
[2024-01-23 21:25] LABS: Glucose - Point of Care 206 mg/dl (70-99)
[2024-01-24] VITALS (7 sets, daily range): BP systolic 114–186; BP diastolic 67–109
[2024-01-24] MEDS: COMPAZINE 5 MG IV ×4 (00:16→18:22)
[2024-01-24] MEDS: APRESOLINE 10 MG IV ×4 (02:15→21:04)
--- NOTE | 2024-01-24 06:23 | W.PN.GI.CBS2 ---
Today's Communication / Plan
-
See assessment plan for details.
Assessment / Plan
-
1. Nausea/vomiting: With likely multifactorial chronic nausea related to underlying diabetes, possibly cannabis hyperemesis as well, now acutely worse after GLP-1 after she had a reaction in the past to GLP-1. She is improving, still having some
dry heaves overnight. I stressed the importance of minimizing narcotics as this is also likely adding to her symptoms. She feels better this morning and states that she will take less narcotics. If she continues to improve they can advance diet
later today, if no improvement then possible EGD tomorrow. Continue glycemic control and supportive care, trend labs.
Subjective
Subjective
Date of Service: January 24, 2024
Patient still complains of nausea, also was still having pain yesterday requiring narcotics. Did not tolerate much clears though feels better this morning.
Objective
Data Reviewed
Laboratory Data:
Laboratory Results
01/23/24 07:43
01/23/24 07:43
Laboratory Results
Magnesium 1.8 mg/dl (1.6-2.3) 01/23/24 07:43
Total Bilirubin 1.0 mg/dl (0.2-1.3) 01/19/24 14:48
AST 31 U/L (14-36) 01/19/24 14:48
ALT 28 U/L (0-35) 01/19/24 14:48
Alkaline Phosphatase 82 U/L (38-126) 01/19/24 14:48
Lipase 54 U/L (23-300) 01/19/24 14:48
Vital Signs and I&O:
Vital Signs
Temp Pulse Resp BP Pulse Ox
99.0 F 108 20 129/77 95
01/24/24 04:00 01/24/24 04:00 01/24/24 04:00 01/24/24 04:00 01/24/24 04:00
I&O
01/22/24 01/23/24 01/24/24
06:59 06:59 06:59
Intake Total 1120 / 1120 480 / 480 1979 / 1979
Output Total 200 / 200 300 / 300
Balance 920 / 920 480 / 480 1680 / 1680
Physical Exam
Physical Exam
General: NAD
Abdomen: normal bowel sounds, soft, no tenderness, no masses or bruits, no ascites
[2024-01-24 07:27] LABS: Glucose - Point of Care 205 mg/dl (70-99)
--- NOTE | 2024-01-24 07:59 | PN.DE.MGMTRT ---
Insulin Management
- -
01/24/2024: Diabetes Management Consult for insulin pump:
Patient admitted 01/18 with abdominal pain intractable vomiting, known to Diabetes team from previous admission of similar complaints and DKA.
PMH includes: Asthma, Neuropathy, Bipolar, Anxiety, Panic disorder, PTSD, borderline personality disorder, benjamin syndrome and T1DM. Prior to admission was using Omni Pod 5 with NovoLog and DexCom G6. A1C on admission 8.4%, Cr 0.6, eGFR > 60. Chart
review indicates that Pt is noted for regular marijuana use and suspected for gastroparesis. Patient sees Dr. Rossi, endocrine, at [facility] for ongoing diabetes management
Pt awake, alert, oriented, states she is feeling a little better today, ambulating in darling.
States she has been administering bolus for meals and corrections. Glucose yesterday ranged 166 to 247, with corrections.
HS glucose 206, no correction noted. This AM glucose was 205.
Pump settings as follows:
Basal Correction Carb ratio Target
12a to 12a 1.7 30 4 110
24 hour basal total 46.8
After discussion with patient correction factor changed from 1:35 to 1:30 and carb ratio changed from 4.5 to 4. She is very receptive to changes. She is aware she needs to document on bedside pump sheet boluses adm at each meal.
Diabetes History
- -
Type of Diabetes: 1
Pre-Admission Diabetes Regimen
01/23/24
07:43
Creatinine 0.6
Lab Results
Hemoglobin A1c 8.4 % (4.0-5.6) H 01/20/24 07:01
Insulin Pump Settings
IP Diabetes Regimen
01/23/24 01/23/24 01/23/24
07:43 12:11 15:20
Glucose 186 H
POC Glucose 247 H 241 H
01/23/24 01/23/24 01/24/24
17:42 21:24 07:26
Glucose
POC Glucose 212 H 206 H 205 H
Patient Education
[2024-01-24 08:21] LABS: Hematocrit 38.3 % (37.0-47.0); Hemoglobin 13.4 g/dL (12.0-16.0); Mean Corpuscular Hgb 31.3 pg (27.0-31.0); Mean Corpuscular Volume 89.5 fL (81.0-99.0); Platelet Count 252 10^3/uL (130-400); Red Blood Cell Count 4.28 10^6/uL (4.20-5.40); Red Cell Dist. Width 12.3 % (11.5-14.5); White Blood Cell Count 8.4 10^3/uL (4.8-10.8)
--- NOTE | 2024-01-24 08:48 | W.PN.HOSP.TC ---
Today's Communication/Plan
-
Monitor diet tolerance
stop IVF
Adjust bp meds
iv bp meds to assist
GI recs
Assessment / Plan
Assessment / Plan
Physical exam:
General: Distress due to nausea
HEENT: Normocephalic, Atraumatic and Dry Mucous Membranes
Respiratory: Clear to Auscultation; Negative Wheezes, Rales or Rhonchi
Cardiac: Regular Rhythm and S1/S2
GI: Soft, mild tender and Nondistended
Musculoskeletal: No Clubbing, No Cyanosis and No Edema
Neuro: Awake, Alert and Oriented
Psych: Calm
A/P:
Intractable abdominal pain nausea vomiting and diarrhea:
-Unclear etiology but suspected Zepbound/Tirzepatide related. Also gastroparesis, cyclic vomiting, and cannabinoid hyperemesis are possibilities.
-Appreciated GI consult and follow up.
-Admit n.p.o. -->GI started her on clear liquid diet. Tolerating breakfast so far. If unable to tolerate then possible EGD tomm.
-No role for gastric emptying study at this juncture especially with use of GLP-1 recently. Perhaps outpatient.
-Defer need for endoscopy to GI. Scheduled for EGD as outpatient.
-Continue Compazine which works best for her
-observe off IVF.
Hypokalemia:
-Replete intravenously and oral and trend
Hypomagnesemia:
-Replete and trend as needed
Hypertension or elevated blood pressure:
-IV hydralazine standing
-Patient was started on Norvasc and will add losartan too as with benjamin disease.
-Increase norvasc dose.
-May need titration of losartan too.
Leukocytosis:
-Reactive
-Trend
Microscopic hematuria:
-UA with microscopic hematuria send follow-up with urology as outpatient. Few urine bacteria & no pyuria-does not appear to be infectious.
Diabetes mellitus type 1:
-Okay to restart insulin pump. She is hesitant and has not started since she has not been eating.
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
[place]'s disease:
-Restarted Korlym (Mifepristone)
Opioid use disorder:
-Currently not on any narcotics
Bipolar disorder:
On Abilify as outpatient
Hyperlipidemia:
Continue statin
Peripheral neuropathy:
Continue Lyrica
Asthma:
Stable
DVT proph- Lovenox
Full Code
Discussed with patient's father at bedside in detail on 01/22. Per father, patient has a tendency to leave AMA at times.
Anticipated Discharge: 24 - 48 hours
Subjective/Interval History
-
Date of Service: January 24, 2024
states so far able to tolerate breakfast
rough night due to dry heaves
Objective Data
-
Labs:
Laboratory Results
01/24/24
07:44
WBC 8.4
Hgb 13.4
Hct 38.3
Plt Count 252
Sodium Pending
Potassium Pending
Chloride Pending
Carbon Dioxide Pending
BUN Pending
Creatinine Pending
Glucose Pending
Calcium Pending
Vital Signs:
Vital Signs
Temp Pulse Resp BP Pulse Ox
97.9 F 114 19 186/109 97
01/24/24 07:48 01/24/24 07:48 01/24/24 07:48 01/24/24 07:48 01/24/24 07:48
I&O
01/23/24 01/24/24 01/25/24
06:59 06:59 06:59
Intake Total 480 / 480 1979 / 1979
Output Total 300 / 300
Balance 480 / 480 1680 / 1680
Data Reviewed
-
Total Time Spent with Patient (in minutes): 55
[2024-01-24 08:55] LABS: Blood Urea Nitrogen 11 mg/dl (7-17); Carbon Dioxide 22 mmol/L (22-30); Chloride 105 mmol/L (98-107); Estimated Creatinine Clearance > 125 ml/min; Glucose 220 mg/dl (70-99); Potassium 3.5 mmol/L (3.5-5.1); Sodium 138 mmol/L (135-145); eGFR > 60.00
[2024-01-24] MEDS: PROTONIX IV 40 MG IV ×2 (10:36→21:04)
[2024-01-24] MEDS: PT'S OWN INSULIN PUMP - NovoLOG 10.5 UNIT SC (10:36)
[2024-01-24] MEDS: NSS (PRESERVATIVE FREE) 10 ML IV ×2 (10:37→21:03)
[2024-01-24] MEDS: LYRICA 150 MG PO ×2 (10:38→21:05)
[2024-01-24] MEDS: LIPITOR 10 MG PO (10:42)
[2024-01-24] MEDS: NON-FORMULARY ITEM PO (10:46)
[2024-01-24] MEDS: COZAAR 25 MG PO (10:46)
[2024-01-24] MEDS: ProAIR HFA INHALER 2 PUFF INH (11:12)
[2024-01-24 11:14] LABS: Glucose - Point of Care 248 mg/dl (70-99)
[2024-01-24] MEDS: PT'S OWN INSULIN PUMP - NovoLOG 18.1999999999999993 UNIT SC (13:02)
--- NOTE | 2024-01-24 15:35 | PN.CDI ---
CDI
- -
CDI:
Physician Documentation Request
Admit Date: 01/22/24 08:00
Dear Doctor Tania,
Please review the following and provide your response in the progress notes.
Clinical Indicators:
- - 5/2 PN 'Hypertension or elevated blood pressure'
- 'IV hydralazine standing'
- 'started on Norvasc and will add losartan too'
- 10mg IV Hydralazine given x 12
Selected Entries
01/19/24
15:00 01/19/24
15:17 01/19/24
18:00
Blood pressure 189/83 189/83 190/120
01/21/24
09:37 01/21/24
16:12 01/22/24
10:30
Blood pressure 185/113 201/108 214/130
01/23/24
08:27 01/23/24
19:57 01/24/24
07:48
Blood pressure 194/109 183/122 186/109
Please clarify which, if any of the following, is a more accurate diagnosis reflecting the type and acuity of the documented hypertension:
Essential primary hypertension
Hypertensive Urgency - B/P is severely elevated (systolic > or = to 180 or diastolic > or = to 110) but there is no associated organ damage. Symptoms may include: headache, shortness of breath, nosebleeds, severe anxiety. Treatment usually consists
of addition to or adjusting of oral medications and does not generally necessitate hospitalization.
Hypertensive Emergency - B/P is severely elevated (systolic > or = to 180 or diastolic > or = to 110) but can occur at lower levels especially in patients who did not previously have high B/P. There is usually associated organ damage. Symptoms may
include: memory loss, LOC, CVA, [place], angina, renal failure, pulmonary edema. Generally requires more aggressive treatment and a hospitalization.
Hypertensive Crisis - an acute elevation in B/P that can lead to organ damage. Broad term that is further differentiated to include urgency or emergency based on presence of organ damage.
Other (please specify)
Use of terms such as suspected, likely, concern for, or probable (associated with a specific diagnosis that is being evaluated, monitored, or treated as if it exists) are acceptable and can be coded in the inpatient setting, when documented at the
time of discharge.
Thank you,
Guille Jean RN
CDI Specialist
Please use your independent medical judgment in providing your response.
[2024-01-24 16:15] LABS: Glucose - Point of Care 87 mg/dl (70-99)
[2024-01-24 17:03] LABS: Glucose - Point of Care 135 mg/dl (70-99)
[2024-01-24] MEDS: PT'S OWN INSULIN PUMP - NovoLOG 11.5 UNIT SC (18:25)
[2024-01-24] MEDS: LOVENOX 40 MG SC (18:26)
[2024-01-24 19:54] LABS: Glucose - Point of Care 86 mg/dl (70-99)
[2024-01-24] MEDS: NORVASC PO (19:55)
[2024-01-24 21:46] LABS: Glucose - Point of Care 152 mg/dl (70-99)
[2024-01-24] MEDS: PT'S OWN INSULIN PUMP - NovoLOG SC (22:11)
[2024-01-24] MEDS: ATIVAN 1 MG IV (23:30)
[2024-01-24] MEDS: NSS (PRESERVATIVE FREE) 0.5 ML IV (23:31)
--- NOTE | 2024-01-24 23:53 | PTCARENOTE ---
Patient rang for nurse-she stated that she woke up having a panic attack; she was rocking back and forth in bed and crying; emotional support provided; PRN Ativan administered @ 2330; will continue to monitor.
[2024-01-25] MEDS: COMPAZINE 5 MG IV ×2 (00:50→06:18)
[2024-01-25] MEDS: APRESOLINE 10 MG IV (03:02)
[2024-01-25 03:23] VITALS: BP 153/91
[2024-01-25 07:10] LABS: Blood Urea Nitrogen 11 mg/dl (7-17); Carbon Dioxide 25 mmol/L (22-30); Chloride 106 mmol/L (98-107); Estimated Creatinine Clearance > 125 ml/min; Glucose 103 mg/dl (70-99); Magnesium 1.8 mg/dl (1.6-2.3); Phosphorus 3.7 mg/dl (2.5-4.5); Potassium 3.1 mmol/L (3.5-5.1); Sodium 138 mmol/L (135-145); eGFR > 60.00
[2024-01-25 07:20] LABS: Glucose - Point of Care 103 mg/dl (70-99)
--- NOTE | 2024-01-25 07:34 | PN.DE.MGMTRT ---
Insulin Management
- -
01/25/2024: Diabetes Management Consult for insulin pump:
Patient admitted 01/18 with abdominal pain intractable vomiting, known to Diabetes team from previous admission of similar complaints and DKA.
PMH includes: Asthma, Neuropathy, Bipolar, Anxiety, Panic disorder, PTSD, borderline personality disorder, benjamin syndrome and T1DM. Prior to admission was using Omni Pod 5 with NovoLog and DexCom G6. A1C on admission 8.4%, Cr 0.6, eGFR > 60. Chart
review indicates that Pt is noted for regular marijuana use and suspected for gastroparesis. Patient sees Dr. Rossi, endocrine, at [facility] for ongoing diabetes management
Pt awake, alert, oriented, states she is feeling better today, ambulating in room. Anxious for discharge.
Pump settings changed yesterday. Glucose yesterday ranged 205 to 248, with corrections. Discussed recommendations for pump setting changes and advised patient change POD, glucose then 135 pre dinner, 152 @ HS.
Fasting this AM glucose was 103.
Pump settings as follows:
Basal Correction Carb ratio Target
12a to 12a 1.7 30 4 110
24 hour basal total 46.8
To continue with current pump settings. She is very receptive to changes. She is aware she needs to document on bedside pump sheet boluses adm at each meal. She is for discharge today.
Diabetes History
- -
Type of Diabetes: 1
Pre-Admission Diabetes Regimen
01/24/24 01/25/24
07:44 05:44
Creatinine 0.6 0.6
Lab Results
Hemoglobin A1c 8.4 % (4.0-5.6) H 01/20/24 07:01
Insulin Pump Settings
IP Diabetes Regimen
01/24/24 01/24/24 01/24/24
07:44 11:13 16:13
Glucose 220 H
POC Glucose 248 H 87
01/24/24 01/24/24 01/24/24
17:02 19:51 21:43
Glucose
POC Glucose 135 H 86 152 H
01/25/24 01/25/24
05:44 07:19
Glucose 103 H
POC Glucose 103 H
Meal type: Dinner
Meal type: Lunch
Meal type: Breakfast
Amount consumed: 100%
Amount consumed: 100%
Amount consumed: 100%
Patient Education
[2024-01-25 07:51] VITALS: BP 158/100
[2024-01-25] MEDS: NSS (PRESERVATIVE FREE) 10 ML IV (08:44)
[2024-01-25] MEDS: PROTONIX IV 40 MG IV (08:45)
[2024-01-25] MEDS: LYRICA 150 MG PO (08:45)
[2024-01-25] MEDS: LIPITOR 10 MG PO (08:45)
[2024-01-25] MEDS: ATIVAN 1 MG IV (08:45)
[2024-01-25] MEDS: NORVASC 5 MG PO (08:46)
[2024-01-25] MEDS: NON-FORMULARY ITEM PO (08:47)
[2024-01-25] MEDS: KCL 270 MEQ IV (08:47)
[2024-01-25] MEDS: COZAAR 50 MG PO (08:48)
--- NOTE | 2024-01-25 09:55 | W.PN.HOSP.TC ---
Addendum entered and electronically signed by Vijay Marin MD 01/25/24 10:07:
Primary hypertension new diagnosis with hypertension urgency
Original Note:
Today's Communication/Plan
-
Replete potassium
Continue BP meds
Tolerating diet
DC home
Assessment / Plan
Assessment / Plan
Physical exam:
General: Distress due to nausea
HEENT: Normocephalic, Atraumatic and Dry Mucous Membranes
Respiratory: Clear to Auscultation; Negative Wheezes, Rales or Rhonchi
Cardiac: Regular Rhythm and S1/S2
GI: Soft, mild tender and Nondistended
Musculoskeletal: No Clubbing, No Cyanosis and No Edema
Neuro: Awake, Alert and Oriented
Psych: anxious
A/P:
Intractable abdominal pain nausea vomiting and diarrhea:
-Unclear etiology but suspected Zepbound/Tirzepatide related. Also gastroparesis, cyclic vomiting, and cannabinoid hyperemesis are possibilities.
-Appreciated GI consult and follow up.
-Tolerated diet. Denies any nausea vomiting abdominal pain.
-No role for gastric emptying study at this juncture especially with use of GLP-1 recently. Perhaps outpatient.
-Defer need for endoscopy to GI. Scheduled for EGD as outpatient on 01/31..
-Continue Compazine which works best for her
-observe off IVF.
Hypokalemia:
-Replete intravenously and oral and trend
Hypomagnesemia:
-Replete and trend as needed
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
-IV hydralazine DC
-Patient was started on Norvasc and will add losartan too as with benjamin disease.
-Patient understand to check blood pressure at home and follow with primary doctor.
Leukocytosis:
-Reactive
-Trend
Microscopic hematuria:
-UA with microscopic hematuria send follow-up with urology as outpatient. Few urine bacteria & no pyuria-does not appear to be infectious.
Diabetes mellitus type 1:
-Okay to restart insulin pump. She is hesitant and has not started since she has not been eating.
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
[place]'s disease:
-Restarted Korlym (Mifepristone)
-Recommended patient to follow-up with her catering assistant
Opioid use disorder:
-Currently not on any narcotics
Bipolar disorder:
On Abilify as outpatient
Hyperlipidemia:
Continue statin
Peripheral neuropathy:
Continue Lyrica
Asthma:
Stable
DVT proph- Lovenox
Full Code
Discussed with GI okay for discharge. Outpatient endoscopy scheduled on 01/31.
More than 30 minutes spent in discharge including
Final examination of the patient
Summarizing hospital stay
Instructions for continuing care to all relevant caregivers
Preparation of discharge records, prescriptions, and referral forms
Total time spent (in minutes): 52
Anticipated Discharge: Today
Subjective/Interval History
-
Date of Service: January 25, 2024
Tolerated diet yesterday
no nausea or vomiting or abd pain
Objective Data
-
Labs:
Laboratory Results
01/25/24
05:44
Sodium 138
Potassium 3.1 L
Chloride 106
Carbon Dioxide 25
BUN 11
Creatinine 0.6
Glucose 103 H
Calcium 9.0
Vital Signs:
Vital Signs
Temp Pulse Resp BP Pulse Ox
98.4 F 111 20 158/100 98
01/25/24 07:51 01/25/24 07:51 01/25/24 07:51 01/25/24 08:46 01/25/24 07:51
I&O
01/24/24 01/25/24 01/26/24
06:59 06:59 06:59
Intake Total 1979 / 1979 1455 / 1455
Output Total 300 / 300
Balance 1680 / 1680 1455 / 1455
--- NOTE | 2024-01-25 10:18 | CM ---
Reviewed the chart notes and spoke with the patient at the bedside. Patient is being discharged today to home with no additional need identified at this time. Patient's mother will provide transportation home. CM continues to be available to
patient/family and is monitoring medical plan for needs at discharge.
Plan: Discharge to home today.
[2024-01-25] MEDS: KCL 40 MEQ PO (10:25)
[2024-01-25] MEDS: PT'S OWN INSULIN PUMP - NovoLOG 12 UNIT SC (10:29)
[2024-01-25 11:31] LABS: Glucose - Point of Care 134 mg/dl (70-99)
[2024-01-25 11:58] VITALS: BP 121/86
--- NOTE | 2024-01-25 12:08 | W.PN.GI.CBS2 ---
Today's Communication / Plan
-
discharge, gi signing off
Assessment / Plan
-
1. Nausea/vomiting: With likely multifactorial chronic nausea related to underlying diabetes, possibly cannabis hyperemesis as well, now acutely worse after GLP-1 after she had a reaction in the past to GLP-1. She is improved, tolerating diet.
Dr. Huerta stressed the importance of minimizing narcotics as this is also likely adding to her symptoms. Plan to hold GLP-1 and outpatient EGD 01/31. Plan discharge patient today and outpatient follow up.
GI will sign off call with ?s.
Subjective
Subjective
Date of Service: January 25, 2024
Tolerating diet
Objective
Data Reviewed
Laboratory Data:
Laboratory Results
01/24/24 07:44
01/25/24 05:44
Laboratory Results
Phosphorus 3.7 mg/dl (2.5-4.5) 01/25/24 05:44
Magnesium 1.8 mg/dl (1.6-2.3) 01/25/24 05:44
Total Bilirubin 1.0 mg/dl (0.2-1.3) 01/19/24 14:48
AST 31 U/L (14-36) 01/19/24 14:48
ALT 28 U/L (0-35) 01/19/24 14:48
Alkaline Phosphatase 82 U/L (38-126) 01/19/24 14:48
Lipase 54 U/L (23-300) 01/19/24 14:48
Vital Signs and I&O:
Vital Signs
Temp Pulse Resp BP Pulse Ox
98.4 F 110 18 121/86 97
01/25/24 11:58 01/25/24 11:58 01/25/24 11:58 01/25/24 11:58 01/25/24 11:58
I&O
01/24/24 01/25/24 01/26/24
06:59 06:59 06:59
Intake Total 1979 1455 / 1455
Output Total 300 / 300
Balance 1679 / 1679 1454 / 145
Physical Exam
Physical Exam
HEENT: Anicteric
GI: Non Distended and Non Tender
--- NOTE | 2024-01-25 12:11 | W.DCSUMMARY ---
Discharge Summary
Discharge Data
Date of Admission: 01/22/24
Date of Discharge: 01/25/24
-
Pending Results: No
Hospital Course
38-year-old female past medical history of Luebbering's disease, diabetes mellitus on insulin pump, severe anxiety, vitamin D deficiency, neuropathy who was presented with severe nausea and vomiting. Patient was eval by gastroenterology. Patient
symptoms were seen multifactorial. Patient was started on IV fluids. Patient was kept NPO. Patient symptoms slowly started to improve liquid diet was started. Patient with persistent hypotension and with new diagnosis of hypertension
urgency/primary hypertension. Norvasc and losartan was started in setting of Luebbering's disease. IV antihypertensive medication was discontinued. Patient potassium was persistently low and received multiple supplementation. Patient finally was
able to tolerate low residue diet. Patient be discharged home recommendation to follow-up outpatient with gastroenterology for outpatient scheduled endoscopy on 01/31 and also to follow-up with primary doctor and group activities aide for Luebbering's
disease and primary hypertension.
Discharge Plan
-
Patient Disposition: Home (Routine Discharge)
Discharge Diagnosis/Procedures: Nausea and vomiting likely secondary to diabetes, versus cannabis hyperemesis versus zepbound
Hypokalemia
Primary hypertension
Hypertension urgency
Hypomagnesemia
Leukocytosis
Condition: Fair
Diet: As tolerated
Activity: As tolerated
Driving Restrictions: No driving for 24 hours
Blood Work: BMP in 1 week via primary doctor.
Activity Restrictions/Additional Instructions:
Follow-up with your group activities aide for blood pressure management and primary doctor
Referrals:
Ken Arnold MD [Active] - None (Follow-up with urology for microscopic hematuria)
Zheng Holley MD [Active] - 03/24/24 3:30 pm (Call if you cannot make this appt. You also have an EGD scheduled for 02/01/24. Call if you cannot make this appt. )
UNKNOWN - PT DOES,NOT KNOW [Family Provider] - in less than 1 week
Prescriptions:
New
losartan 50 mg Tablet
50 mg PO DAILY 30 Days Qty: 30 0RF
amlodipine [Norvasc] 5 mg tablet
5 mg PO DAILY Qty: 30 0RF
Continued
atorvastatin 10 mg Tablet
10 mg PO DAILY
Patient Comments:
11/05/2023, per pt., took this med. this morning but believes to have thrown it up.
insulin aspart U-100 100 unit/mL Solution
0 unit SC .VIA PUMP
Patient Comments:
11/05/2023, per pt., she puts 200 units into her pump and replaces it every 2-3 days. Pt. states to have changed her pump roughly 1-2 days ago and says that the pod expires tomorrow.
albuterol sulfate [Ventolin HFA] 90 mcg/actuation Hfa Aerosol Inhaler
2 puff INHALATION R Q4HPRN PRN (Reason: sob)
pregabalin 150 mg Capsule
150 mg PO BID
Patient Comments:
11/05/2023, per pt., took this med. this morning but believes to have thrown it up.
cholecalciferol (vitamin D3) 125 mcg (5,000 unit) Tablet
125 mcg PO DAILY
Patient Comments:
11/05/2023, per pt., took this vitamin this morning but believes to have thrown it up.
melatonin 10 mg Tablet Extended Release
10 mg PO HSPRN PRN (Reason: sleep)
Abilify Maintena 400 mg suspension,extended rel syring
400 mg IM Q3W
Patient Comments:
11/05/2023, per pt., next dose is scheduled for tomorrow.
mifepristone [Korlym] 300 mg Tablet
300 mg PO DAILY
potassium chloride 10 mEq packet
20 meq PO BID
Held
Motegrity 2 mg Tablet
2 mg PO DAILY
Hold Instructions: Resume on 02/01/24. Hold till seen by your primary general ophthalmologist.
Patient Comments:
11/05/2023, per pt., took this med. this morning but believes to have thrown it up.
Discontinued
Medical Marijuana
0 inh inhalation BIDPRN PRN (Reason: mild pain/sleep/anxiety)
Patient Comments:
11/05/2023, pt. smokes flower form BIDPRN for anxiety, mild pain, and sleep. Pt. states that she smokes a 'blunt' and is unsure of the amount of puffs she takes per use.
Zepbound 2.5 mg/0.5 mL Pen Injector
2.5 mg SC QWEEK
Discharge Orders:
Discharge Patient (As Directed); Ordered 01/25/24
Ordered By: Vijay Marin
Discharge Date and Time
Print Language: THAI
== END 2024-01-25 12:25 | disposition home or self-care (01) | DRG 918 ==
LOC: 2 NORTH 08:00
PROVIDERS: Hospitalist; Internal Medicine Gastroenterology; Nurse Practitioner Family; ADMITTING PHYSICIAN Internal Medicine; ATTENDING PHYSICIAN Hospitalist; CONSULT PHYSICIAN Internal Medicine Gastroenterology; EMERGENCY PHYSICIAN Emergency Medicine
DX: T50.995A Adverse effect of other drugs, medicaments and biological substances, initial encounter (principal); E24.9 Cushing's syndrome, unspecified; E10.43 Type 1 diabetes mellitus with diabetic autonomic (poly)neuropathy; Z79.4 Long term (current) use of insulin; F11.10 Opioid abuse, uncomplicated; F43.10 Post-traumatic stress disorder, unspecified; F31.9 Bipolar disorder, unspecified; E78.00 Pure hypercholesterolemia, unspecified; J45.909 Unspecified asthma, uncomplicated; E87.6 Hypokalemia; E83.42 Hypomagnesemia; I10 Essential (primary) hypertension; G62.9 Polyneuropathy, unspecified; I16.0 Hypertensive urgency; F12.188 Cannabis abuse with other cannabis-induced disorder; Z11.52 Encounter for screening for COVID-19
CPT/HCPCS: 74177; 80048; 80053; 80306; 80307; 81003; 81015; 82962; 83036; 83690; 83735; 84100; 84703; 85025; 85027; 87502; 87811; 93005; 94640; 96361; 96374; 96375; 96376; 99285; 99406; J3480; Q9967

== ENCOUNTER → 2024-02-12 06:26 | Day surgery (SDC) | payer OTHER, SELFPAY ==
[2024-02-12 08:04] LABS: Glucose - Point of Care 148 mg/dl (70-99)
== END ==
LOC: GI 06:26
PROVIDERS: ATTENDING PHYSICIAN Internal Medicine Gastroenterology
DX: R11.2 Nausea with vomiting, unspecified (principal); R10.84 Generalized abdominal pain; K44.9 Diaphragmatic hernia without obstruction or gangrene; K20.90 Esophagitis, unspecified without bleeding; K22.2 Esophageal obstruction; K31.89 Other diseases of stomach and duodenum; K26.9 Duodenal ulcer, unspecified as acute or chronic, without hemorrhage or perforation; K29.50 Unspecified chronic gastritis without bleeding
CPT/HCPCS: 43239; 88305; 82962; 88342

== ENCOUNTER 2024-04-04 16:29 | Emergency (ER) | payer OTHER, SELFPAY ==
[2024-04-04 16:31] VITALS: BP 162/102
[2024-04-04 16:36] LABS: Glucose - Point of Care 300 mg/dl (70-99)
--- NOTE | 2024-04-04 17:12 | ED.GENMED ---
History of Present Illness
General
Chief Complaint: Abdominal Symptoms
Source: patient
Exam Limitations: none
Time Seen by Provider: 04/04/24 17:00
Nursing documentation reviewed up to this point in time: agreed with
History of Present Illness
History of Present Illness:
Patient to ED with complaint of intractable vomiting. Vomiting started last PMand contintues today. SHe feels it is related to food poisoning. Brought to ED by parents for eval. She has been see for same complaint in past. No findings to explain
her symptoms.
Past History
Past History
ED Past Medical History: Asthma, IDDM, Psychiatric and Other (Stopped Methadone 2 years ago, denies illicit drug use)
Patient has exhibited threatening behavior?: Yes
Date of threatening behavior? (updated with each occurrence): 07/17/19 (making threats to staff and police)
Social History
Tobacco: Non-smoker
Alcohol: None
Drug: Former user
Personal: Single
Living: with family
Employment: Not employed
Review of Systems
Review of Systems
Allergies reviewed?: Yes
All Other Systems: ROS reviewed and negative except as documented in HPI and ROS
Constitutional: Reports no symptoms
EENT: Reports no symptoms
Respiratory: Reports no symptoms
Cardiac: Reports no symptoms
ABD/GI: Reports abdominal pain, nausea and vomiting
: Reports no symptoms
Musculoskeletal: Reports no symptoms
Skin: Reports no symptoms
Neurological: Reports no symptoms
Psychiatric: Reports no symptoms
Phy Exam
General Physical Exam
General Presentation: moderate distress
General age: appears stated age
General Skin: warm and dry
General Habitus: normal
General Mental: alert
Gastrointestinal Exam
Gastrointestinal Exam: normal bowel sounds, soft, no organomegaly, no pulsatile mass, non distended and no cva tenderness
Palpation: generalized: Moderate tenderness
Musculoskeletal Exam
Musculoskeletal Exam: full ROM and neuro vasc intact
Skin Exam
Skin Exam: normal color, warm/dry and no rash
Psychiatric Exam
Psychiatric Exam: normal mood/affect
Course
Orders/Labs/Results
Orders:
Orders
04/04/24 16:54
Test Result ONCE
04/04/24 17:14
0.9% Sodium Chloride 1000 ml [Nss] 1,000 ml IV BOLUS
Prochlorperazine [Compazine] 10 mg IV NOW STA
04/04/24 17:15
Test Result ONCE
04/04/24 17:29
B-Hydroxybutyrate Urgent
Complete Blood Count/With Diff Urgent
Comprehensive Metabolic Panel Urgent
HCG, Serum Qualitative Screen Urgent
Lipase Urgent
04/04/24 17:40
Iohexol [Omnipaque] See Protocol PO NOW STA
Ondansetron Injectable [Zofran] 4 mg IV NOW STA
04/04/24 17:54
CT Abd/pelvis W Iv Cont Urgent
Comment:
Reason For Exam: severe vomiting, abdominal pain
04/04/24 19:03
Ondansetron Injectable [Zofran] 4 mg .ROUTE .STK-MED ONE
04/04/24 19:04
Ondansetron Injectable [Zofran] 4 mg IV NOW STA
04/04/24 20:02
Drug Screen, Urine [Urine Drug Abuse Screen] Urgent
Date Specimen was Collected: 04/04/24
Time Specimen was Collected: 18:59
Urinalysis Reflex To Culture Urgent
Date Specimen was Collected: 04/04/24
Time Specimen was Collected: 18:59
Urine Microscopic Reflex Cult Urgent
04/04/24 20:03
Ondansetron Injectable [Zofran] 4 mg IV NOW STA
04/04/24 20:11
Albuterol Nebs [Ventolin Nebules] 2.5 mg INH R NOW STA
Abnormal Lab Results
04/04/24 04/04/24 04/04/24
16:35 17:29 20:02
WBC 16.0 H 10^3/uL
(4.8-10.8)
MCHC 37.2 H g/dL
(33.0-37.0)
Abs Immat Gran (auto) 0.1 H 10^3/uL
(0-0.05)
Absolute Neuts (auto) 13.5 H 10^3/uL
(1.4-6.5)
Absolute Monos (auto) 0.8 H 10^3/uL
(0.1-0.6)
Immature Gran % 0.8 H %
(0-0.5)
Neutrophils % 84.5 H %
(42.2-75.2)
Lymphocytes % 9.3 L %
(20.5-51.1)
Carbon Dioxide 20 L mmol/L
(22-30)
BUN 23 H mg/dl
(7-17)
Glucose 291 H mg/dl
(70-99)
Total Bilirubin 1.5 H mg/dl
(0.2-1.3)
AST 44 H U/L
(14-36)
ALT 51 H U/L
(0-35)
Albumin 5.2 H g/dl
(3.5-5.0)
Urine Ketones 1+ A
(Negative)
Ur Occult Blood Reflex 1+ A
(Negative)
Urine RBC 3-6 A /HPF
(0-2)
Urine Bacteria (Reflex) Few A
(Negative)
Urine Glucose 3+ A
(Negative)
Urine Albumin (Reflex) 1+ A
(Neg - Trace)
U Marijuana (THC) Screen Positive H
(Negative)
B-Hydroxybutyrate 0.45 H mmol/L
(0.02-0.27)
POC Glucose 300 H mg/dl
(70-99)
04/04/24 17:29
04/04/24 17:29
Vital Signs
Initial and Last Documented VS:
Initial Vital Signs
Temp Pulse Resp BP Pulse Ox
97.5 F 124 30 162/102 100
04/04/24 16:31 04/04/24 16:31 04/04/24 16:31 04/04/24 16:31 04/04/24 16:31
Last Documented Vital Signs
Temp Pulse Resp BP Pulse Ox
97.5 F 102 18 154/90 100
04/04/24 16:31 04/04/24 21:04 04/04/24 21:04 04/04/24 20:06 04/04/24 21:04
*Radiology
Radiology exam reviewed: radiology read reviewed
*Pulse Oximetry
Patient hypoxic: no
*Critical Care Note
Total Time (30-74mins, 75-104mins- exclusive of procedures): Not Applicable
Update Note
Update Note:
Improved with IVF, zofran. Labs, Ct results reviewed. She remains afebrile. Tolerating po fluids. SHe is discharged home and will follow up with her PCP. Given instructions on s/s to return to ED and she is agreable to plan
ED Attending Note
-
Portions of this chart may have been created with voice recognition software.� Occasional wrong word or��sound alike� substitutions may have occurred due to the inherent limitations of voice recognition software.
Discharge Plan
Departure
Patient Disposition: Home (Routine Discharge)
Date of Disposition: 04/04/24
Time of Disposition: 21:04
Patient with high blood pressure during this ER visit?: No
Condition: Good
Covid-19: Not Applicable
Discharge Problem:
Vomiting, Abdominal pain
Instructions: Clear Liquid Diet, Nausea and Vomiting, Adult (DC), Abdominal Pain
Prescriptions:
No Action
Motegrity 2 mg Tablet
2 mg PO DAILY
Hold Instructions: Resume on 11/16/23. Discuss with your primary care physician before resuming this medication
Patient Comments:
11/05/2023, per pt., took this med. this morning but believes to have thrown it up.
atorvastatin 10 mg Tablet
10 mg PO DAILY
Patient Comments:
11/05/2023, per pt., took this med. this morning but believes to have thrown it up.
insulin aspart U-100 100 unit/mL Solution
0 unit SC .VIA PUMP
Patient Comments:
11/05/2023, per pt., she puts 200 units into her pump and replaces it every 2-3 days. Pt. states to have changed her pump roughly 1-2 days ago and says that the pod expires tomorrow.
albuterol sulfate [Ventolin HFA] 90 mcg/actuation Hfa Aerosol Inhaler
2 puff INHALATION R Q4HPRN PRN (Reason: sob)
pregabalin 150 mg Capsule
150 mg PO BID
Patient Comments:
11/05/2023, per pt., took this med. this morning but believes to have thrown it up.
cholecalciferol (vitamin D3) 125 mcg (5,000 unit) Tablet
125 mcg PO DAILY
Patient Comments:
11/05/2023, per pt., took this vitamin this morning but believes to have thrown it up.
melatonin 10 mg Tablet Extended Release
10 mg PO HSPRN PRN (Reason: sleep)
Abilify Maintena 400 mg suspension,extended rel syring
400 mg IM Q3W
Patient Comments:
11/05/2023, per pt., next dose is scheduled for tomorrow.
mifepristone [Korlym] 300 mg Tablet
300 mg PO DAILY
potassium chloride 10 mEq packet
20 meq PO BID
losartan 50 mg Tablet
50 mg PO DAILY 30 Days Qty: 30 0RF
amlodipine [Norvasc] 5 mg tablet
5 mg PO DAILY Qty: 30 0RF
Referrals:
Nicholas Avila DO [Family Provider] -
Activity Restrictions/Additional Instructions:
FOllow up with your GI doctor on Sunday. Return to the emergency department immediately for any changes in/worsening of your symptoms.
Interventions
Interventions:
*General Assessment Last Done: 04/04/24 16:31
*ED COVID-19 Vaccine History Last Done: 04/04/24 16:31
*Nursing Disposition Last Done: 04/04/24 21:38
ZA-Bsqbil-Kduidwvhkv Assessment Last Done: 04/04/24 17:20
Discharge Date and Time
Discharge Date/Time: 04/04/24 21:38
Print Language: WALLISIAN
[2024-04-04] MEDS: COMPAZINE 10 MG IV (17:18)
[2024-04-04] MEDS: NSS 1000 IV (17:24)
[2024-04-04 17:34] LABS: % Basophils 0.2 % (0-2); % Eosinophils 0.1 % (0-6); % Immature Granulocytes 0.8 % (0-0.5); % Lymphocytes 9.3 % (20.5-51.1); % Monocytes 5.1 % (1.7-9.3); % Neutrophils 84.5 % (42.2-75.2); Absolute Immature Granulocytes 0.1 10^3/uL (0-0.05); Absolute Lymphocytes 1.5 10^3/uL (1.2-3.4); Absolute Monocytes 0.8 10^3/uL (0.1-0.6); Absolute Neutrophils 13.5 10^3/uL (1.4-6.5); Hematocrit 37.4 % (37.0-47.0); Hemoglobin 13.9 g/dL (12.0-16.0); Mean Corp Hgb Conc. 37.2 g/dL (33.0-37.0); Mean Corpuscular Volume 83.3 fL (81.0-99.0); Mean Platelet Volume 10.2 fL (7.4-10.4); Nucleated Red Blood Cells % 0 %; Platelet Count 353 10^3/uL (130-400); Red Blood Cell Count 4.49 10^6/uL (4.20-5.40); Red Cell Dist. Width 12.8 % (11.5-14.5)
[2024-04-04] MEDS: ZOFRAN 4 MG IV ×2 (17:46→20:04)
[2024-04-04 17:51] LABS: HCG, Serum Qualitative Screen Negative
[2024-04-04 18:28] LABS: AST (SGOT) 44 U/L (14-36); Albumin 5.2 g/dl (3.5-5.0); Alkaline Phosphatase 112 U/L (38-126); B-Hydroxybutyrate 0.45 mmol/L (0.02-0.27); Blood Urea Nitrogen 23 mg/dl (7-17); Calcium 9.9 mg/dl (8.4-10.2); Carbon Dioxide 20 mmol/L (22-30); Chloride 100 mmol/L (98-107); Glucose 291 mg/dl (70-99); Lipase 73 U/L (23-300); Potassium 3.8 mmol/L (3.5-5.1); Sodium 136 mmol/L (135-145); Total Bilirubin 1.5 mg/dl (0.2-1.3); eGFR > 60.00
[2024-04-04 18:50] LABS: ALT (SGPT) 51 U/L (0-35)
[2024-04-04 20:06] VITALS: BP 154/90
[2024-04-04 20:13] LABS: Urine Albumin 1+ (Neg - Trace); Urine Bilirubin Negative (Negative); Urine Character Clear (Clear); Urine Color Yellow; Urine Glucose 3+ (Negative); Urine Ketone 1+ (Negative); Urine Leukocyte Negative (Negative); Urine Nitrite Negative (Negative); Urine Occult Blood 1+ (Negative); Urine Urobilinogen Negative (Neg - 1+)
[2024-04-04 20:26] LABS: Amphetamines Negative (Negative); Barbiturates Negative (Negative); Benzodiazepines Negative (Negative); Buprenorphine Negative (Negative); Cocaine Negative (Negative); Marijuana Positive (Negative); Methadone Negative (Negative); Methamphetamines Negative (Negative); Opiates Negative (Negative); Phencyclidine Negative (Negative); Tricyclic Antidepressants Negative (Negative)
[2024-04-04 20:38] LABS: Urine Squamous Cell 16-20 /LPF (Few)
[2024-04-04] MEDS: VENTOLIN NEBULES 2.5 MG INH (20:38)
[2024-04-04 20:39] LABS: Urine Bacteria Few (Negative); Urine White Cell 0-2 /HPF (0-5)
[2024-04-08] MEDS: NSS 1000 IV (18:25)
== END 2024-04-04 21:38 | disposition home or self-care (01) ==
LOC: EMR 16:29
PROVIDERS: Nurse Practitioner; EMERGENCY PHYSICIAN Emergency Medicine; FAMILY PHYSICIAN Family Medicine
DX: R10.9 Unspecified abdominal pain (principal); R11.2 Nausea with vomiting, unspecified; J45.909 Unspecified asthma, uncomplicated; Z79.4 Long term (current) use of insulin; Z88.8 Allergy status to other drugs, medicaments and biological substances; E11.40 Type 2 diabetes mellitus with diabetic neuropathy, unspecified; F41.9 Anxiety disorder, unspecified; F31.9 Bipolar disorder, unspecified; F41.0 Panic disorder [episodic paroxysmal anxiety]; E24.9 Cushing's syndrome, unspecified; F43.10 Post-traumatic stress disorder, unspecified; Z91.51 Personal history of suicidal behavior
CPT/HCPCS: 99284; 96375; 96361; 94640; 96374; 96376; 74177; 80053; 80306; 81003; 81015; 82010; 82962; 83690; 84703; 85025; Q9967

== ENCOUNTER 2024-04-06 12:37 | Emergency (ER) | payer OTHER, SELFPAY ==
[2024-04-06 12:39] VITALS: BP 165/111; BMI 30.7
[2024-04-06 14:02] LABS: Glucose - Point of Care 203 mg/dl (70-99)
--- NOTE | 2024-04-06 14:10 | ED.GENMED ---
History of Present Illness
<Sunil Mcdowell PA-C - Last Filed: 04/07/24 10:32>
General
Chief Complaint: Abdominal Symptoms
Source: patient, records and family
Time Seen by Provider: 04/06/24 13:39
History of Present Illness
History of Present Illness:
38-year-old female with past medical history of insulin-dependent diabetes and bipolar disorder presenting to the emergency department for evaluation of persistent nausea and vomiting that has been ongoing since this past Sunday. Patient seen in
the ER on Sunday and had a workup with CT scan that did not show any acute abnormalities and patient was discharged home. She did states she was feeling better upon her discharge from the ER but states symptoms returned shortly thereafter. She
notes that she has not been able to eat or drink anything despite feeling very thirsty due to the nausea and vomiting. Patient also states her blood glucose has been persistently greater than 200. She denies any fevers or infectious symptoms,
bowel changes or urinary symptoms, chest pain or shortness of breath.
Past History
<Sunil Mcdowell PA-C - Last Filed: 04/07/24 10:32>
Past History
ED Past Medical History: Asthma, IDDM, Psychiatric and Other (Stopped Methadone 2 years ago, denies illicit drug use)
ED Past Surgical History:
Patient has exhibited threatening behavior?: Yes
Date of threatening behavior? (updated with each occurrence): 07/17/19 (making threats to staff and police)
Social History
Tobacco: Non-smoker
Alcohol: None
Drug: Marijuana
Personal: Single
Living: with family
Employment: Not employed
Review of Systems
<MAUREEN Oh Last Filed: 04/07/24 10:32>
Review of Systems
All Other Systems: ROS reviewed and negative except as documented in HPI and ROS
Phy Exam
<MAUREEN Oh Last Filed: 04/07/24 10:32>
Physical Exam
Physical Exam:
GENERAL: Alert , in no apparent distress but does appear uncomfortable
EYE: clear conjunctiva b/l
HEAD: NCAT
ENT: o/p clr, mmm.
CARDIAC: Tachycardic rate and rhythm
LUNGS: Clear breath sounds bilaterally, no acute respiratory distress, no wheezes/rales/rhonchi
ABDOMEN: Soft, without focal tenderness, no r/g, no cvat
NEUROLOGICAL: Alert and oriented
SKIN: Warm and dry, skin intact.
MUSCULOSKELETAL: No edema, well perfused.
PSYCH: Normal and appropriate interaction.
Scores
<Sunil Mcdowell PA-C - Last Filed: 04/07/24 10:32>
Heart Failure Risk
Heart Failure Risk Score: Not Applicable
Heart Score for Chest Pain Patients
STEMI patient?: Not applicable
Withdrawal Assessment of Alcohol
Withdrawal Assessment Completed?: Not applicable
Course
<Sunil Mcdowell PA-C - Last Filed: 04/07/24 10:32>
Orders/Labs/Results
Orders:
Orders
04/06/24 13:46
Bedside Glucose- Treatment ONCE
0.9% Sodium Chloride 1000 ml [Nss] 1,000 ml IV BOLUS
Ondansetron Injectable [Zofran] 4 mg IV NOW STA
04/06/24 13:47
IV Insert/Care/Rem.- Treatment PRN
04/06/24 14:02
B-Hydroxybutyrate Urgent
Complete Blood Count/With Diff Urgent
Comprehensive Metabolic Panel Urgent
Venous Blood Gas Urgent
%Oxygen/Room Air: RA
04/06/24 14:19
Prochlorperazine [Compazine] 10 mg IV NOW STA
04/06/24 14:23
Diphenhydramine [Benadryl] 25 mg IV NOW STA
04/06/24 14:25
Diphenhydramine [Benadryl] 50 mg .ROUTE .STK-MED ONE
04/06/24 14:28
Urinalysis Reflex To Culture Urgent
Date Specimen was Collected: 04/06/24
Time Specimen was Collected: 14:19
Urine Microscopic Reflex Cult Urgent
Urine Culture Urgent
NGOZI Source: U
Specimen Description:
Date Specimen was Collected: 04/06/24
Time Specimen was Collected: 14:19
04/06/24 14:54
Cefepime HCl [Maxipime] 2,000 mg IV NOW STA
04/06/24 17:18
Prochlorperazine [Compazine] 10 mg .ROUTE .[employer]-MED ONE
04/06/24 17:20
Prochlorperazine [Compazine] 10 mg PO NOW STA
Abnormal Lab Results
04/06/24 04/06/24 04/06/24
14:00 14:02 14:28
WBC 11.7 H 10^3/uL
(4.8-10.8)
MCH 31.3 H pg
(27.0-31.0)
Abs Immat Gran (auto) 0.1 H 10^3/uL
(0-0.05)
Absolute Neuts (auto) 8.4 H 10^3/uL
(1.4-6.5)
Absolute Monos (auto) 0.9 H 10^3/uL
(0.1-0.6)
Immature Gran % 0.7 H %
(0-0.5)
Lymphocytes % 19.1 L %
(20.5-51.1)
VBG pH 7.57 H
(7.32-7.43)
VBG pCO2 31 L mmHg
(35-48)
VBG HCO3 28.4 H mmol/L
(22-27)
Potassium 3.3 L mmol/L
(3.5-5.1)
BUN 20 H mg/dl
(7-17)
Glucose 179 H mg/dl
(70-99)
AST 47 H U/L
(14-36)
ALT 53 H U/L
(0-35)
Urine Ketones 1+ A
(Negative)
Ur Occult Blood Reflex 2+ A
(Negative)
Urine Nitrite (Reflex) Positive A
(Negative)
Leukocyte Esterase Rfl Trace A
(Negative)
Urine RBC 3-6 A /HPF
(0-2)
Urine Bacteria (Reflex) Many A
(Negative)
Urine Glucose Trace A
(Negative)
Urine Albumin (Reflex) 1+ A
(Neg - Trace)
POC Glucose 203 H mg/dl
(70-99)
04/06/24 14:02
04/06/24 14:02
Vital Signs
Initial and Last Documented VS:
Initial Vital Signs
Temp Pulse Resp BP Pulse Ox
97.8 F 108 16 165/111 99
04/06/24 12:39 04/06/24 12:39 04/06/24 12:39 04/06/24 12:39 04/06/24 12:39
Last Documented Vital Signs
Temp Pulse Resp BP Pulse Ox
98.2 F 98 17 133/82 98
04/06/24 17:25 04/06/24 17:25 04/06/24 17:25 04/06/24 17:25 04/06/24 17:25
<Nadya Woods PA-C - Last Filed: 04/08/24 07:15>
Orders/Labs/Results
Orders:
Orders
04/06/24 13:46
Bedside Glucose- Treatment ONCE
0.9% Sodium Chloride 1000 ml [Nss] 1,000 ml IV BOLUS
Ondansetron Injectable [Zofran] 4 mg IV NOW STA
04/06/24 13:47
IV Insert/Care/Rem.- Treatment PRN
04/06/24 14:02
B-Hydroxybutyrate Urgent
Complete Blood Count/With Diff Urgent
Comprehensive Metabolic Panel Urgent
Venous Blood Gas Urgent
%Oxygen/Room Air: RA
04/06/24 14:19
Prochlorperazine [Compazine] 10 mg IV NOW STA
04/06/24 14:23
Diphenhydramine [Benadryl] 25 mg IV NOW STA
04/06/24 14:25
Diphenhydramine [Benadryl] 50 mg .ROUTE .STK-MED ONE
04/06/24 14:28
Urinalysis Reflex To Culture Urgent
Date Specimen was Collected: 04/06/24
Time Specimen was Collected: 14:19
Urine Microscopic Reflex Cult Urgent
Urine Culture Urgent
NGOZI Source: U
Specimen Description:
Date Specimen was Collected: 04/06/24
Time Specimen was Collected: 14:19
04/06/24 14:54
Cefepime HCl [Maxipime] 2,000 mg IV NOW STA
04/06/24 17:18
Prochlorperazine [Compazine] 10 mg .ROUTE .STK-MED ONE
04/06/24 17:20
Prochlorperazine [Compazine] 10 mg PO NOW STA
Abnormal Lab Results
04/06/24 04/06/24 04/06/24
14:00 14:02 14:28
WBC 11.7 H 10^3/uL
(4.8-10.8)
MCH 31.3 H pg
(27.0-31.0)
Abs Immat Gran (auto) 0.1 H 10^3/uL
(0-0.05)
Absolute Neuts (auto) 8.4 H 10^3/uL
(1.4-6.5)
Absolute Monos (auto) 0.9 H 10^3/uL
(0.1-0.6)
Immature Gran % 0.7 H %
(0-0.5)
Lymphocytes % 19.1 L %
(20.5-51.1)
VBG pH 7.57 H
(7.32-7.43)
VBG pCO2 31 L mmHg
(35-48)
VBG HCO3 28.4 H mmol/L
(22-27)
Potassium 3.3 L mmol/L
(3.5-5.1)
BUN 20 H mg/dl
(7-17)
Glucose 179 H mg/dl
(70-99)
AST 47 H U/L
(14-36)
ALT 53 H U/L
(0-35)
Urine Ketones 1+ A
(Negative)
Ur Occult Blood Reflex 2+ A
(Negative)
Urine Nitrite (Reflex) Positive A
(Negative)
Leukocyte Esterase Rfl Trace A
(Negative)
Urine RBC 3-6 A /HPF
(0-2)
Urine Bacteria (Reflex) Many A
(Negative)
Urine Glucose Trace A
(Negative)
Urine Albumin (Reflex) 1+ A
(Neg - Trace)
POC Glucose 203 H mg/dl
(70-99)
04/06/24 14:02
04/06/24 14:02
Vital Signs
Initial and Last Documented VS:
Initial Vital Signs
Temp Pulse Resp BP Pulse Ox
97.8 F 108 16 165/111 99
04/06/24 12:39 04/06/24 12:39 04/06/24 12:39 04/06/24 12:39 04/06/24 12:39
Last Documented Vital Signs
Temp Pulse Resp BP Pulse Ox
98.2 F 98 17 133/82 98
04/06/24 17:25 04/06/24 17:25 04/06/24 17:25 04/06/24 17:25 04/06/24 17:25
<Sunil Mcdowell PA-C - Last Filed: 04/07/24 10:32>
MDM/Problems Addressed
Differential Diagnosis Includes:
DKA, HHNK, volume depletion, electrolyte disturbance
MDM/Problems Addressed:
38-year-old female presenting back to the emergency department for reevaluation of persistent nausea and vomiting. Seen in this ER 2 days ago for the same. Had labs and CT scan done which were largely unremarkable. Patient did have an elevated
glucose greater than 200 with anion gap of 13 and bicarb of 20 on her lab then. She does note polyuria and polydipsia. My suspicion for diabetes complication is quite high. Will treat with fluids and Zofran for the meantime. Doubt surgical
pathology given normal CT 2 days ago. Anticipate admission
Chronic conditions affecting care: DM
Acute Exacerbation and/or Progression of Chronic Illness: DM
<Sunil Mcdowell PA-C - Last Filed: 04/07/24 10:32>
*Pulse Oximetry
Patient hypoxic: no
*Housing Management Officer Interpretation
Rate: tachycardiac
Rhythm: sinus
*Critical Care Note
Total Time (30-74mins, 75-104mins- exclusive of procedures): Not Applicable
Data Reviewed
Review of Other/Old Records Reveals: Labs, Records and Radiology Studies
Source: patient, records and family
<Sunil Mcdowell PA-C - Last Filed: 04/07/24 10:32>
Comment
Comment:
Patient without relief of symptoms following Zofran. I ordered Compazine and Benadryl for symptomatic relief which patient had relief from. Lab findings noted for mild leukocytosis. Her urine is also now nitrite positive with leukocytes. Will
treat with Maxipime for possible complicated UTI/pyelonephritis. Disposition pending.
Patient Management
Escalation/DeEscalation of care consider admission/obs:
On reevaluation patient has been able to tolerate p.o. and feels much better. Will send home with antibiotic for urinary tract infection. Compazine prescription also sent to pharmacy for her nausea. Advised avoiding marijuana as this could
potentially be contributing to her nausea/vomiting. Stable for discharge home and otherwise aware of return precautions.
<Nadya Woods PA-C - Last Filed: 04/08/24 07:15>
Update Note
Update Note:
04/08/2024 0714 AM
Urine culture gram-negative rods
Patient was placed on cefuroxime
Await sensitivities
ED Attending Note
<Sunil Mcdowell PA-C - Last Filed: 04/07/24 10:32>
-
Portions of this chart may have been created with voice recognition software.� Occasional wrong word or��sound alike� substitutions may have occurred due to the inherent limitations of voice recognition software.
Discharge Plan
Departure
Patient Disposition: Home (Routine Discharge)
Date of Disposition: 04/06/24
Time of Disposition: 16:42
Patient with high blood pressure during this ER visit?: Yes
Discharge Problem:
Nausea and vomiting, UTI (urinary tract infection)
Instructions: Nausea and Vomiting, Adult (DC)
Prescriptions:
New
cefuroxime axetil 500 mg tablet
500 mg PO BID 10 Days Qty: 20 0RF
prochlorperazine maleate [Compazine] 10 mg tablet
10 mg PO BID PRN (Reason: nausea and vomiting) Qty: 8 0RF
No Action
atorvastatin 10 mg Tablet
10 mg PO DAILY
albuterol sulfate [Ventolin HFA] 90 mcg/actuation Hfa Aerosol Inhaler
2 puff INHALATION R Q4HPRN PRN (Reason: sob)
pregabalin 150 mg Capsule
150 mg PO BID
Abilify Maintena 400 mg suspension,extended rel syring
400 mg IM Q3W
losartan 50 mg Tablet
50 mg PO DAILY 30 Days Qty: 30 0RF
amlodipine [Norvasc] 5 mg tablet
5 mg PO DAILY Qty: 30 0RF
pantoprazole [Protonix] 40 mg Tablet,Delayed Release (Dr/Ec)
40 mg PO DAILY
Motegrity 2 mg Tablet
2 mg PO DAILY
Medical Marijuana
2 - 3 puff inhalation DAILYPRN PRN (Reason: anxiety)
Patient Own Insulin Pump
0 units SC .VIA PUMP NOVOLOG
Referrals:
Josephine Mcdowell CRNP [Family Provider] -
Interventions
Interventions:
*Risk Screen - Suicide Last Done: 04/06/24 12:39
*General Assessment Last Done: 04/06/24 17:25
*Neglect/Abuse Screening Last Done: 04/06/24 12:39
ED- Fall Risk Assessment Last Done: 04/06/24 17:25
*ED COVID-19 Vaccine History Last Done: 04/06/24 17:25
*Nursing Disposition Last Done: 04/06/24 17:25
JZ-Bguxtw-Vviacysefh Assessment Last Done: 04/06/24 14:03
Discharge Date and Time
Discharge Date/Time: 04/06/24 17:26
Print Language: CZECH
[2024-04-06] MEDS: ZOFRAN 4 MG IV (14:15)
[2024-04-06] MEDS: NSS 1000 IV (14:16)
[2024-04-06 14:17] LABS: Venous Blood Gas B.E. 6.8 mmol/L (-4 to +4); Venous Blood Gas HCO3 28.4 mmol/L (22-27); Venous Blood Gas O2 Sat % 76.8 %; Venous Blood Gas pCO2 31 mmHg (35-48); Venous Blood Gas pH 7.57 (7.32-7.43); Venous Blood Gas pO2 41 mmHg (30-50)
[2024-04-06 14:18] LABS: % Basophils 0.5 % (0-2); % Eosinophils 0.1 % (0-6); % Immature Granulocytes 0.7 % (0-0.5); % Lymphocytes 19.1 % (20.5-51.1); % Monocytes 7.8 % (1.7-9.3); % Neutrophils 71.8 % (42.2-75.2); Absolute Basophils 0.1 10^3/uL (0-0.2); Absolute Immature Granulocytes 0.1 10^3/uL (0-0.05); Absolute Lymphocytes 2.2 10^3/uL (1.2-3.4); Absolute Monocytes 0.9 10^3/uL (0.1-0.6); Absolute Neutrophils 8.4 10^3/uL (1.4-6.5); Hematocrit 39.2 % (37.0-47.0); Hemoglobin 14.5 g/dL (12.0-16.0); Mean Corpuscular Hgb 31.3 pg (27.0-31.0); Mean Corpuscular Volume 84.7 fL (81.0-99.0); Mean Platelet Volume 9.7 fL (7.4-10.4); Nucleated Red Blood Cells % 0 %; Platelet Count 323 10^3/uL (130-400); Red Blood Cell Count 4.63 10^6/uL (4.20-5.40); Red Cell Dist. Width 12.8 % (11.5-14.5); White Blood Cell Count 11.7 10^3/uL (4.8-10.8)
[2024-04-06] MEDS: COMPAZINE 10 MG IV (14:28)
[2024-04-06] MEDS: BENADRYL 25 MG IV (14:29)
[2024-04-06 14:35] LABS: AST (SGOT) 47 U/L (14-36); Alkaline Phosphatase 77 U/L (38-126); Blood Urea Nitrogen 20 mg/dl (7-17); Calcium 9.7 mg/dl (8.4-10.2); Carbon Dioxide 27 mmol/L (22-30); Chloride 98 mmol/L (98-107); Estimated Creatinine Clearance > 125 ml/min; Glucose 179 mg/dl (70-99); Potassium 3.3 mmol/L (3.5-5.1); Sodium 139 mmol/L (135-145); Total Bilirubin 1.3 mg/dl (0.2-1.3); Total Protein 7.7 g/dl (6.3-8.2); eGFR > 60.00
[2024-04-06 14:37] LABS: Urine Albumin 1+ (Neg - Trace); Urine Bilirubin Negative (Negative); Urine Character Very Cloudy (Clear); Urine Color Yellow; Urine Glucose Trace (Negative); Urine Ketone 1+ (Negative); Urine Leukocyte Trace (Negative); Urine Nitrite Positive (Negative); Urine Occult Blood 2+ (Negative); Urine Specific Gravity 1.015 (<1.030); Urine Urobilinogen Negative (Neg - 1+)
[2024-04-06 14:40] VITALS: BP 140/79
[2024-04-06 14:42] LABS: B-Hydroxybutyrate 0.07 mmol/L (0.02-0.27)
[2024-04-06 14:54] LABS: ALT (SGPT) 53 U/L (0-35)
[2024-04-06 14:54] LABS: Urine Amorphous Seen; Urine Mucus Many
[2024-04-06 14:57] LABS: Urine Bacteria Many (Negative); Urine White Cell 0-2 /HPF (0-5)
[2024-04-06] MEDS: MAXIPIME 2000 MG IV (16:17)
[2024-04-06 17:15] VITALS: BP 133/82
[2024-04-06] MEDS: COMPAZINE 10 MG PO (17:20)
[2024-04-06 17:25] VITALS: BP 133/82
== END 2024-04-06 17:26 | disposition home or self-care (01) ==
LOC: EMR 12:37
PROVIDERS: Physician Assistant Medical; EMERGENCY PHYSICIAN Emergency Medicine; FAMILY PHYSICIAN Nurse Practitioner Family
DX: R11.2 Nausea with vomiting, unspecified (principal); N39.0 Urinary tract infection, site not specified; E11.65 Type 2 diabetes mellitus with hyperglycemia; F31.9 Bipolar disorder, unspecified
CPT/HCPCS: 99284; 96374; 96375 ×3; 96361; 80053; 81003; 81015; 82010; 82805; 82962; 85025; 87077; 87086; 87186

== ENCOUNTER 2024-05-05 06:40 | Emergency (ER) | payer OTHER, SELFPAY ==
[2024-05-05] VITALS (7 sets, daily range): BP systolic 143–177; BP diastolic 83–96; BMI 32.3
[2024-05-05 08:15] LABS: % Basophils 0.3 % (0-2); % Immature Granulocytes 0.8 % (0-0.5); % Lymphocytes 1.7 % (20.5-51.1); % Monocytes 1.4 % (1.7-9.3); % Neutrophils 95.8 % (42.2-75.2); Absolute Basophils 0.1 10^3/uL (0-0.2); Absolute Immature Granulocytes 0.2 10^3/uL (0-0.05); Absolute Lymphocytes 0.3 10^3/uL (1.2-3.4); Absolute Monocytes 0.3 10^3/uL (0.1-0.6); Absolute Neutrophils 19.5 10^3/uL (1.4-6.5); Hematocrit 36.9 % (37.0-47.0); Hemoglobin 13.4 g/dL (12.0-16.0); Mean Corp Hgb Conc. 36.3 g/dL (33.0-37.0); Mean Corpuscular Hgb 31.6 pg (27.0-31.0); Mean Platelet Volume 10.4 fL (7.4-10.4); Nucleated Red Blood Cells % 0 %; Platelet Count 286 10^3/uL (130-400); Red Blood Cell Count 4.24 10^6/uL (4.20-5.40); Red Cell Dist. Width 13.3 % (11.5-14.5); White Blood Cell Count 20.3 10^3/uL (4.8-10.8)
--- NOTE | 2024-05-05 08:20 | ED.GENMED ---
History of Present Illness
<Eloise Chaves, CEREAL SUPERVISOR - Last Filed: 05/06/24 17:44>
General
Chief Complaint: Abdominal Symptoms
Source: patient
Exam Limitations: none
Time Seen by Provider: 05/05/24 08:18
Nursing documentation reviewed up to this point in time: agreed with
History of Present Illness
History of Present Illness:
38-year-old female with history of IDDM with insulin pump, neuropathy, anxiety, bipolar, panic disorder, substance abuse, SI, PTSD, frequent URIs presents stating she went to yesterday for intermittent pain across lower abdomen for past week.
Also frequency and urgency to urinate. Started Bactrim 6 p.m., took one dose and has had multiple episodes of vomiting since, last emesis 1 hour ago. Cannot hold anything down.
Denies nausea at this time. Had normal BM last p.m. Denies SOB, CP.
Denies d/c. Denies fever.
Presents with 1 L IVF infusing, had 700 ml so far. States pain is , denies nausea at this time.
Here in ED 04/06 for similar symptoms, was here on 05/[address] abd/pelvis was neg
Past History
<Eloise Chaves, CEREAL SUPERVISOR - Last Filed: 05/06/24 17:44>
Past History
ED Past Medical History: Asthma, IDDM, Psychiatric and Other (Stopped Methadone 2 years ago, denies illicit drug use)
ED Past Surgical History:
Patient has exhibited threatening behavior?: Yes
Date of threatening behavior? (updated with each occurrence): 07/17/19 (making threats to staff and police)
Social History
Tobacco: Non-smoker
Alcohol: None
Drug: Marijuana
Personal: Single
Living: with family
Employment: Not employed
Review of Systems
<Eloise Chaves, CEREAL SUPERVISOR - Last Filed: 05/06/24 17:44>
Review of Systems
Allergies reviewed?: Yes
All Other Systems: ROS reviewed and negative except as documented in HPI and ROS
Constitutional: Denies fever or chills
Respiratory: Denies trouble breathing
Cardiac: Denies chest pain
ABD/GI: Reports abdominal pain (feels its from vomiting. ), nausea and vomiting; Denies diarrhea or constipated
: Reports frequency and urgency; Denies dysuria, flank pain, bleeding or discharge
Musculoskeletal: Reports no symptoms
Skin: Reports no symptoms
Neurological: Reports no symptoms
Phy Exam
<Eloise Chaves, CEREAL SUPERVISOR - Last Filed: 05/06/24 17:44>
Physical Exam
Physical Exam:
GENERAL: No acute distress. A&Ox3.
CONSTITUTIONAL: Afebrile.
EYES: clear, conjunctivae normal
ENMT: moist mucus membranes, Pharynx nl
RESPIRATORY: Regular respirations, nonlabored, lungs clear.
CARDIOVASCULAR: Regular rate and rhythm, no murmurs, no rubs.
GI: Soft, generally tender to palpation, no focal tenderness, normal BS
MUSCULOSKELETAL: Moves with ease. Well perfused.
SKIN: Warm, dry, pink
PSYCH: Normal mood and affect. Well kept, interactive and appropriate
NEUROLOGIC: Awake, alert and oriented. No focal neurological deficits
Course
<Eloise Chaves, CEREAL SUPERVISOR - Last Filed: 05/06/24 17:44>
Orders/Labs/Results
Orders:
Orders
05/05/24 07:52
Test Result ONCE
05/05/24 07:53
B-Hydroxybutyrate Urgent
Comment: ADD ON
CMP [Comprehensive Metabolic Panel] Urgent
Complete Blood Count/With Diff Urgent
HCG, Serum Qualitative Screen Urgent
Lipase Urgent
Comment: ADD ON
05/05/24 08:45
Add On- LAB Urgent
Tests Added?: Lipase
05/05/24 08:52
Drug Screen, Urine [Urine Drug Abuse Screen] Urgent
Date Specimen was Collected: 05/05/24
Time Specimen was Collected: 08:49
Fentanyl, Urine Urgent
Urinalysis Reflex To Culture Urgent
Date Specimen was Collected: 05/05/24
Time Specimen was Collected: 08:49
Urine Microscopic Reflex Cult Urgent
05/05/24 09:16
Add On- LAB Urgent
Tests Added?: B hydroxybuterate
05/05/24 09:25
0.9% Sodium Chloride 1000 ml [Nss] 1,000 ml IV BOLUS
Haloperidol Lactate [Haldol] 1 mg IV NOW STA
05/05/24 09:26
CT Abd/pelvis W Iv Cont Urgent
Comment:
Reason For Exam: generalized abd pain, n/v
05/05/24 09:54
Electrocardiogram (*1) Urgent
Reason for Study: QTc Monitoring
05/05/24 09:55
EKG- Treatment ONCE
05/05/24 10:01
HYDROmorphone [Dilaudid] 1 mg .ROUTE .STK-MED ONE
Abnormal Lab Results
05/05/24 05/05/24
07:53 08:52
WBC 20.3 H 10^3/uL
(4.8-10.8)
Hct 36.9 L %
(37.0-47.0)
MCH 31.6 H pg
(27.0-31.0)
Abs Immat Gran (auto) 0.2 H 10^3/uL
(0-0.05)
Absolute Neuts (auto) 19.5 H 10^3/uL
(1.4-6.5)
Absolute Lymphs (auto) 0.3 L 10^3/uL
(1.2-3.4)
Immature Gran % 0.8 H %
(0-0.5)
Neutrophils % 95.8 H %
(42.2-75.2)
Lymphocytes % 1.7 L %
(20.5-51.1)
Monocytes % 1.4 L %
(1.7-9.3)
Glucose 307 H mg/dl
(70-99)
Urine Ketones 1+ A
(Negative)
Ur Occult Blood Reflex 1+ A
(Negative)
Urine Glucose 3+ A
(Negative)
Urine Albumin (Reflex) 1+ A
(Neg - Trace)
U Benzodiazepines Scrn Positive H
(Negative)
U Marijuana (THC) Screen Positive H
(Negative)
05/05/24 07:53
05/05/24 07:53
Vital Signs
Initial and Last Documented VS:
Initial Vital Signs
Pulse Resp Pulse Ox
108 24 100
05/05/24 06:46 05/05/24 06:46 05/05/24 06:46
Last Documented Vital Signs
Temp Pulse Resp BP Pulse Ox
98.7 F 98 16 165/85 98
05/05/24 11:00 05/05/24 12:00 05/05/24 12:00 05/05/24 12:00 05/05/24 12:00
<Justina Dykes MD - Last Filed: 05/05/24 09:33>
Orders/Labs/Results
Orders:
Orders
05/05/24 07:52
Test Result ONCE
05/05/24 07:53
B-Hydroxybutyrate Urgent
Comment: ADD ON
CMP [Comprehensive Metabolic Panel] Urgent
Complete Blood Count/With Diff Urgent
HCG, Serum Qualitative Screen Urgent
Lipase Urgent
Comment: ADD ON
05/05/24 08:45
Add On- LAB Urgent
Tests Added?: Lipase
05/05/24 08:52
Drug Screen, Urine [Urine Drug Abuse Screen] Urgent
Date Specimen was Collected: 05/05/24
Time Specimen was Collected: 08:49
Fentanyl, Urine Urgent
Urinalysis Reflex To Culture Urgent
Date Specimen was Collected: 05/05/24
Time Specimen was Collected: 08:49
Urine Microscopic Reflex Cult Urgent
05/05/24 09:16
Add On- LAB Urgent
Tests Added?: B hydroxybuterate
05/05/24 09:25
0.9% Sodium Chloride 1000 ml [Nss] 1,000 ml IV BOLUS
Haloperidol Lactate [Haldol] 1 mg IV NOW STA
05/05/24 09:26
CT Abd/pelvis W Iv Cont Urgent
Comment:
Reason For Exam: generalized abd pain, n/v
05/05/24 09:54
Electrocardiogram (*1) Urgent
Reason for Study: QTc Monitoring
05/05/24 09:55
EKG- Treatment ONCE
05/05/24 10:01
HYDROmorphone [Dilaudid] 1 mg .ROUTE .STK-MED ONE
Abnormal Lab Results
05/05/24 05/05/24
07:53 08:52
WBC 20.3 H 10^3/uL
(4.8-10.8)
Hct 36.9 L %
(37.0-47.0)
MCH 31.6 H pg
(27.0-31.0)
Abs Immat Gran (auto) 0.2 H 10^3/uL
(0-0.05)
Absolute Neuts (auto) 19.5 H 10^3/uL
(1.4-6.5)
Absolute Lymphs (auto) 0.3 L 10^3/uL
(1.2-3.4)
Immature Gran % 0.8 H %
(0-0.5)
Neutrophils % 95.8 H %
(42.2-75.2)
Lymphocytes % 1.7 L %
(20.5-51.1)
Monocytes % 1.4 L %
(1.7-9.3)
Glucose 307 H mg/dl
(70-99)
Urine Ketones 1+ A
(Negative)
Ur Occult Blood Reflex 1+ A
(Negative)
Urine Glucose 3+ A
(Negative)
Urine Albumin (Reflex) 1+ A
(Neg - Trace)
U Benzodiazepines Scrn Positive H
(Negative)
U Marijuana (THC) Screen Positive H
(Negative)
05/05/24 07:53
05/05/24 07:53
Vital Signs
Initial and Last Documented VS:
Initial Vital Signs
Pulse Resp Pulse Ox
108 24 100
05/05/24 06:46 05/05/24 06:46 05/05/24 06:46
Last Documented Vital Signs
Temp Pulse Resp BP Pulse Ox
98.7 F 98 16 165/85 98
05/05/24 11:00 05/05/24 12:00 05/05/24 12:00 05/05/24 12:00 05/05/24 12:00
<Eloise Chaves CEREAL SUPERVISOR - Last Filed: 05/06/24 17:44>
MDM/Problems Addressed
Differential Diagnosis Includes:
Dehydration, HHNK, DKA electrolyte imbalance, cannabinoid hyperemesis, diabetic gastroparesis
MDM/Problems Addressed:
38-year-old female with history of IDDM with insulin pump, neuropathy, anxiety, bipolar, panic disorder, substance abuse, SI, PTSD, frequent URIs presents stating she went to yesterday for intermittent pain across lower abdomen for past week.
Also frequency and urgency to urinate. Started Bactrim 6 p.m., took one dose and has had multiple episodes of vomiting since, last emesis 1 hour ago. Cannot hold anything down.
Denies nausea at this time. Had normal BM last p.m. Denies SOB, CP.
Denies d/c. Denies fever.
1 L IVF infusing, had 700 ml so far. States pain was 8/10 on arrival, now 3/10, denies nausea at this time.
Here in ED 04/06 for similar symptoms, was here on 04/[address] abd/pelvis was neg
Esophagogastroduodenoscopy by Dr. Holley 02/12/2024 showed normal esophagus mild gastritis, recommended daily Protonix
8:40 a.m.
Pt OOB and ambulated to BR, became nauseous and retching.
Medical marijuana, last marijuana smoked was a week ago. She states she research cannabinoid hyperemesis and doesn't think this is it.
Abdominal pain up to 6/10. She feels abd pain is from vomiting.
9:00 a.m.
CBC: WBC 20.3 with neutrophilia, elevated ANC, most likely reactive significant vomiting
CMP: Unremarkable save for a glucose of 307
Pt is nauseous and just vomited
Case discussed with Dr. Dykes who examined pt. Agrees to treat like CHS. Haldol ordered
10:30 AM:
Pt crying out with abdominal pain, pt previously on Methadone, CT scan ready, pt calmed with Dr. Dykes asking that she give the Haldol a little more time, went to CT
UDS: Positive for marijuana, positive for benzodiazepines, negative for fentanyl or anything else
U/A: No sign of infection
11:15 a.m.
No further complaints of significant abd. pain
CT abdomen pelvis with IV only contrast radiology report read: IMPRESSION:
1. New 3.4 cm thick-walled, oval-shaped cyst in the left ovary with adjacent mild peritoneal fluid suggesting acute partial ovarian cyst rupture.
2. Small calcified appendicoliths in the base of the appendix.
3. Moderate to severe diffuse hepatic steatosis.
4. Mild hepatomegaly.
Results discussed with patient
States she is feeling much better, drinking johann ari
12:00 PM:
Patient remains symptom-free. Continues to drink johann ari, states she is comfortable going home
No history of long QT, prescription for Zofran sent to her pharmacy
Patient has an insulin pump and her blood pressure reading on her phone is now 191
Last BP 174/96. She did not take her BP med today, will take when she gets home.
States Zofran doesn't work for her, Compazine does. Rx for Compazine sent to her pharmacy she is instructed to take Benadryl 25 mg with the Compazine
12:20
Pt ambulated out with normal gait with her family, appreciative of the care.
<lEoise Chaves NP - Last Filed: 05/06/24 17:44>
*Critical Care Note
Total Time (30-74mins, 75-104mins- exclusive of procedures): Not Applicable
ED Attending Note
<Eloise Chaves CEREAL SUPERVISOR - Last Filed: 05/06/24 17:44>
-
Portions of this chart may have been created with voice recognition software.� Occasional wrong word or��sound alike� substitutions may have occurred due to the inherent limitations of voice recognition software.
<Justina Dykes MD - Last Filed: 05/05/24 09:33>
ED Attending Note
Patient seen and examined by attending physician: Yes
I performed the substantive portion of visit, reviewed & personally made and approve the management plan that is documented in note by myself or ERIC.: Yes
ED Attending Note:
With 38-year-old female presents emergency department with intractable nausea and vomiting that started yesterday. She did note dysuria and was diagnosed with a UTI at an urgent care center, started on Bactrim which she has taken in the past. She
denies fever but notes chills. Denies hematuria, back pain, new chest pain. She notes her abdomen is uncomfortable 'I think from all the vomiting' and denies focal pain. On exam, mucous membranes dry, overall nontoxic well-appearing. Abdomen
soft, diffusely tender nonspecific no rebound or guarding. Patient was interviewed without father and son in room. She does report regular marijuana use but has been decreasing her use, last time was about a week ago. There has been suggestion
that she may have CHS in the past, she thinks this is unlikely. Does report hot showers are marginally helpful. Patient agreeable to Haldol as a form of treatment for nausea while workup under way.
Discharge Plan
Departure
Patient Disposition: Home (Routine Discharge)
Date of Disposition: 05/05/24
Time of Disposition: 11:57
Patient with high blood pressure during this ER visit?: No
Condition: Good
Discharge Problem:
Intractable nausea and vomiting, Ruptured cyst of left ovary
Instructions: Nausea and Vomiting, Adult (DC), Ovarian Cyst ED, Cannabis hyperemesis syndrome, Abdominal Pain
Prescriptions:
New
prochlorperazine maleate [Compazine] 10 mg tablet
10 mg PO BID PRN (Reason: nausea and vomiting) Qty: 10 0RF
No Action
atorvastatin 10 mg Tablet
10 mg PO DAILY
albuterol sulfate [Ventolin HFA] 90 mcg/actuation Hfa Aerosol Inhaler
2 puff INHALATION R Q4HPRN PRN (Reason: sob)
pregabalin 150 mg Capsule
150 mg PO BID
Abilify Maintena 400 mg suspension,extended rel syring
400 mg IM Q3W
losartan 50 mg Tablet
50 mg PO DAILY 30 Days Qty: 30 0RF
amlodipine [Norvasc] 5 mg tablet
5 mg PO DAILY Qty: 30 0RF
pantoprazole [Protonix] 40 mg Tablet,Delayed Release (Dr/Ec)
40 mg PO DAILY
Motegrity 2 mg Tablet
2 mg PO DAILY
Medical Marijuana
2 - 3 puff inhalation DAILYPRN PRN (Reason: anxiety)
Patient Own Insulin Pump
0 units SC .VIA PUMP NOVOLOG
cefuroxime axetil 500 mg tablet
500 mg PO BID 10 Days Qty: 20 0RF
prochlorperazine maleate [Compazine] 10 mg tablet
10 mg PO BID PRN (Reason: nausea and vomiting) Qty: 8 0RF
Referrals:
Josephine Mcdowell CRNP [Family Provider] - Call in 1-3 days for appt
Activity Restrictions/Additional Instructions:
As we discussed, Your urine shows no sign of infection
your WBC is high at 20,000. Most likely from repeated vomiting. Have it rechecked in 3-4 days.
I sent a prescription to your pharmacy for Compazine to use as needed for nausea and vomiting. Take Benadryl 25 mg with it.
I am highly suspicious for Cannabinoid hyperemesis due to smoking marijuana and recommend stopping the smoking. Perhaps a different kind of cannabis with lower THC levels may help. Please research and discuss with your primary care provider.
Return here immediately for repeated vomiting, worsening abdominal pain, fever, or feeling sicker in any way.
Interventions
Interventions:
*Risk Screen - Suicide Last Done: 05/05/24 06:46
*Neglect/Abuse Screening Last Done: 05/05/24 06:46
ED- Fall Risk Assessment Last Done: 05/05/24 12:23
*ED COVID-19 Vaccine History Last Done: 05/05/24 07:54
*Nursing Disposition Last Done: 05/05/24 12:23
DP-Felhih-Utqokqylaw Assessment Last Done: 05/05/24 07:30
ED-Female Genitourinary Assessment Last Done: 05/05/24 07:30
Discharge Date and Time
Discharge Date/Time: 05/05/24 12:24
Print Language: EMIRATI
[2024-05-05 08:32] LABS: ALT (SGPT) 32 U/L (0-35); AST (SGOT) 31 U/L (14-36); Albumin 4.9 g/dl (3.5-5.0); Alkaline Phosphatase 98 U/L (38-126); Blood Urea Nitrogen 16 mg/dl (7-17); Calcium 9.8 mg/dl (8.4-10.2); Carbon Dioxide 28 mmol/L (22-30); Chloride 101 mmol/L (98-107); Estimated Creatinine Clearance 122 ml/min; Glucose 307 mg/dl (70-99); Potassium 4.3 mmol/L (3.5-5.1); Sodium 138 mmol/L (135-145); Total Bilirubin 0.8 mg/dl (0.2-1.3); Total Protein 7.4 g/dl (6.3-8.2); eGFR > 60.00
[2024-05-05 09:16] LABS: Urine Albumin 1+ (Neg - Trace); Urine Bilirubin Negative (Negative); Urine Character Clear (Clear); Urine Color Yellow; Urine Glucose 3+ (Negative); Urine Ketone 1+ (Negative); Urine Leukocyte Negative (Negative); Urine Nitrite Negative (Negative); Urine Occult Blood 1+ (Negative); Urine Urobilinogen Negative (Neg - 1+)
[2024-05-05 09:26] LABS: HCG, Serum Qualitative Screen Negative
[2024-05-05 09:35] LABS: Lipase 56 U/L (23-300)
[2024-05-05 09:45] LABS: Amphetamines Negative (Negative); Barbiturates Negative (Negative); Benzodiazepines Positive (Negative)
[2024-05-05 09:46] LABS: Buprenorphine Negative (Negative); Cocaine Negative (Negative); Marijuana Positive (Negative); Methadone Negative (Negative); Methamphetamines Negative (Negative); Opiates Negative (Negative); Phencyclidine Negative (Negative); Tricyclic Antidepressants Negative (Negative)
[2024-05-05] MEDS: HALDOL 1 MG IV (09:50)
[2024-05-05] MEDS: NSS 1000 IV (09:51)
[2024-05-05 10:07] LABS: Fentanyl, Urine Negative (Negative)
[2024-05-05 10:37] LABS: B-Hydroxybutyrate 0.12 mmol/L (0.02-0.27)
[2024-05-05 11:05] LABS: Urine Amorphous Seen; Urine Granular Cast 0-2 /LPF (0)
[2024-05-05 11:07] LABS: Urine Red Blood Cell 0-2 /HPF (0-2); Urine White Cell 0-2 /HPF (0-5)
== END 2024-05-05 12:24 | disposition home or self-care (01) ==
LOC: EMR 06:40
PROVIDERS: Registered Nurse; Student in an Organized Health Care Education/Training Program; EMERGENCY PHYSICIAN Emergency Medicine; FAMILY PHYSICIAN Nurse Practitioner Family
DX: R11.2 Nausea with vomiting, unspecified (principal); R10.30 Lower abdominal pain, unspecified; R39.15 Urgency of urination; R35.0 Frequency of micturition; N83.202 Unspecified ovarian cyst, left side; K76.0 Fatty (change of) liver, not elsewhere classified; R16.0 Hepatomegaly, not elsewhere classified; E11.40 Type 2 diabetes mellitus with diabetic neuropathy, unspecified; F31.9 Bipolar disorder, unspecified; F41.9 Anxiety disorder, unspecified; F41.0 Panic disorder [episodic paroxysmal anxiety]; F43.10 Post-traumatic stress disorder, unspecified; J45.909 Unspecified asthma, uncomplicated; Z79.4 Long term (current) use of insulin; Z96.41 Presence of insulin pump (external) (internal); Z88.8 Allergy status to other drugs, medicaments and biological substances
CPT/HCPCS: 99285; 96361; 96374; 74177; 80053; 80306; 80307; 81003; 81015; 82010; 83690; 84703; 85025; 93005; Q9967

== ENCOUNTER 2024-05-07 05:39 | Emergency (ER) | payer OTHER, SELFPAY ==
[2024-05-07 05:39] VITALS: BMI 31.7
[2024-05-07 05:41] VITALS: BP 169/104
--- NOTE | 2024-05-07 07:02 | ED.GENMED ---
History of Present Illness
General
Chief Complaint: Abdominal Pain
Source: patient
Exam Limitations: none
Time Seen by Provider: 05/07/24 06:08
History of Present Illness
History of Present Illness:
38-year-old female who presents complaint nausea vomiting that began about a week ago. The patient states that she has had recurrence of this since October. She was advised by GI that it was suspected to be related to cannabinoid hyperemesis
syndrome but patient states she does not suspect this is the case that she had traveled back in October to [place] and wonders if it is related. She states that she does not vomit every day but comes intermittently. On my evaluation she states
her nausea is actually improved. Little bit of upper abdominal pain but only with vomiting. Does have occasional dysuria. Reports possibly a low-grade fever last night. No hematemesis. No melena. Patient states she uses marijuana for anxiety
and back pain. She states her hemoglobin A1c is high
Past History
Past History
ED Past Medical History: Asthma, IDDM, Psychiatric and Other (Stopped Methadone 2 years ago, denies illicit drug use)
ED Past Surgical History:
Patient has exhibited threatening behavior?: Yes
Date of threatening behavior? (updated with each occurrence): 07/17/19 (making threats to staff and police)
Social History
Tobacco: Non-smoker
Alcohol: None
Drug: Marijuana
Personal: Single
Living: with family
Employment: Not employed
Phy Exam
Physical Exam
Physical Exam:
CONSTITUTIONAL Patient alert and oriented to person, place and time. Well-appearing. Vital signs reviewed.
HEAD atraumatic, normocephalic.
EYES eyelids normal to inspection, Extraocular muscles intact, Conjunctiva normal, Sclera normal.
NECK normal range of motion, Trachea midline, no jugular venous distention.
RESPIRATORY CHEST No respiratory distress noted, Chest expansion equal, Bilateral breath sounds clear.
CARDIOVASCULAR regular rate and rhythm, Heart sounds normal.
ABDOMEN mild epigastric tenderness, Bowel sounds normal. No distention.
BACK normal inspection, no obvious deformities
UPPER EXTREMITY range of motion normal, Motor strength normal, no cyanosis, no edema.
LOWER EXTREMITY range of motion normal, Motor strength normal, no cyanosis, no edema.
NEURO Speech normal, No focal motor deficits, Cross coma scale 15, Memory normal, Cranial Nerves intact to screening exam.
SKIN skin warm, dry, and normal in color.
PSYCHIATRIC patient oriented to person place and time, Normal affect.
Course
Orders/Labs/Results
Orders:
Orders
05/07/24 06:51
Complete Blood Count/With Diff Urgent
Comprehensive Metabolic Panel Urgent
05/07/24 07:27
Haloperidol Lactate [Haldol] 2 mg IV NOW STA
05/07/24 08:01
EKG- Treatment ONCE
05/07/24 08:05
Urinalysis Reflex To Culture Urgent
Date Specimen was Collected: 05/07/24
Time Specimen was Collected: 08:02
Urine Microscopic Reflex Cult Urgent
05/07/24 09:32
Potassium Chloride 10% Elixir [KCl Elixir] 40 meq PO NOW STA
Abnormal Lab Results
05/07/2424
06:51 08:05
WBC 13.6 H 10^3/uL
(4.8-10.8)
MCH 31.6 H pg
(27.0-31.0)
Abs Immat Gran (auto) 0.1 H 10^3/uL
(0-0.05)
Absolute Neuts (auto) 11.3 H 10^3/uL
(1.4-6.5)
Absolute Monos (auto) 0.9 H 10^3/uL
(0.1-0.6)
Immature Gran % 0.7 H %
(0-0.5)
Neutrophils % 83.2 H %
(42.2-75.2)
Lymphocytes % 8.9 L %
(20.5-51.1)
Potassium 3.1 L D mmol/L
(3.5-5.1)
BUN 24 H mg/dl
(7-17)
Glucose 206 H mg/dl
(70-99)
AST 39 H U/L
(14-36)
ALT 44 H U/L
(0-35)
Urine Ketones 3+ A
(Negative)
Ur Occult Blood Reflex Trace A
(Negative)
Urine Urobilinogen 2+ A
(Neg - 1+)
Urine RBC 3-6 A /HPF
(0-2)
Urine Albumin (Reflex) 1+ A
(Neg - Trace)
05/07/24 06:51
05/07/24 06:51
Vital Signs
Initial and Last Documented VS:
Initial Vital Signs
Temp Pulse Resp BP Pulse Ox
98.7 F 100 18 169/104 100
05/07/24 05:41 05/07/24 05:41 05/07/24 05:41 05/07/24 05:41 05/07/24 05:41
Last Documented Vital Signs
Temp Pulse Resp BP Pulse Ox
98.7 F 77 16 126/62 98
05/07/24 05:41 05/07/24 10:10 05/07/24 10:10 05/07/24 10:10 05/07/24 10:10
*Pulse Oximetry
Patient hypoxic: no
*Critical Care Note
Total Time (30-74mins, 75-104mins- exclusive of procedures): Not Applicable
Data Reviewed
Review of Other/Old Records Reveals: Discharge Summary (Previous discharge summary reviewed.)
Further Testing Considered But Not Given:
Considered abdominal CT but recently had an abdominal CT and has had previous CTs without clear diagnosis
Patient Management
Escalation/DeEscalation of care consider admission/obs:
Patient resting complaint feels much better. Okay for discharge outpatient follow-up. White count proved from recent visit. Did skilled nursing facility counselor patient on importance of cessation of marijuana. She strongly feels that is not related to marijuana.
Certainly possible but I recommended cessation to see if there is improvement. This was also discussed with her father
ED Attending Note
-
Portions of this chart may have been created with voice recognition software.� Occasional wrong word or��sound alike� substitutions may have occurred due to the inherent limitations of voice recognition software.
Discharge Plan
Departure
Patient Disposition: Home (Routine Discharge)
Date of Disposition: 05/07/24
Time of Disposition: :31
Patient with high blood pressure during this ER visit?: No
Discharge Problem:
Vomiting, Hypokalemia
Instructions: Nausea and Vomiting, Adult (DC), Promethazine
Prescriptions:
New
potassium chloride 20 mEq/15 mL liquid
20 meq PO DAILY Qty: 90 0RF
promethazine 25 mg suppository
25 mg ND Q6H PRN (Reason: nausea and vomiting) Qty: 12 0RF
No Action
atorvastatin 10 mg Tablet
10 mg PO DAILY
albuterol sulfate [Ventolin HFA] 90 mcg/actuation Hfa Aerosol Inhaler
2 puff INHALATION R Q4HPRN PRN (Reason: sob)
pregabalin 150 mg Capsule
150 mg PO BID
Abilify Maintena 400 mg suspension,extended rel syring
400 mg IM Q3W
losartan 50 mg Tablet
50 mg PO DAILY 30 Days Qty: 30 0RF
amlodipine [Norvasc] 5 mg tablet
5 mg PO DAILY Qty: 30 0RF
pantoprazole [Protonix] 40 mg Tablet,Delayed Release (Dr/Ec)
40 mg PO DAILY
Motegrity 2 mg Tablet
2 mg PO DAILY
Medical Marijuana
2 - 3 puff inhalation DAILYPRN PRN (Reason: anxiety)
Patient Own Insulin Pump
0 units SC .VIA PUMP NOVOLOG
cefuroxime axetil 500 mg tablet
500 mg PO BID 10 Days Qty: 20 0RF
prochlorperazine maleate [Compazine] 10 mg tablet
10 mg PO BID PRN (Reason: nausea and vomiting) Qty: 8 0RF
prochlorperazine maleate [Compazine] 10 mg tablet
10 mg PO BID PRN (Reason: nausea and vomiting) Qty: 10 0RF
Referrals:
Josephine Mcdowell CRNP [Family Provider] -
Activity Restrictions/Additional Instructions:
Please slowly progress your diet and stick to a clear liquid diet for the next 8 hours. Return immediately for fevers, blood in vomit, blood in stool or any other concerns. Please see your doctor in the next 3 to 5 days for follow-up and
reevaluation.
Interventions
Interventions:
*Risk Screen - Suicide Last Done: 05/07/24 05:41
*General Assessment Last Done: 05/07/24 05:41
*Neglect/Abuse Screening Last Done: 05/07/24 05:41
ED- Fall Risk Assessment Last Done: 05/07/24 06:55
*ED COVID-19 Vaccine History Last Done: 05/07/24 06:54
*Nursing Disposition Last Done: 05/07/24 10:11
VM-Vloypq-Lxmsblpkxr Assessment Last Done: 05/07/24 06:54
Discharge Date and Time
Discharge Date/Time: 05/07/24 10:13
Print Language: KOSOVAN
[2024-05-07 07:15] LABS: % Basophils 0.4 % (0-2); % Eosinophils 0.1 % (0-6); % Immature Granulocytes 0.7 % (0-0.5); % Lymphocytes 8.9 % (20.5-51.1); % Monocytes 6.7 % (1.7-9.3); % Neutrophils 83.2 % (42.2-75.2); Absolute Basophils 0.1 10^3/uL (0-0.2); Absolute Immature Granulocytes 0.1 10^3/uL (0-0.05); Absolute Lymphocytes 1.2 10^3/uL (1.2-3.4); Absolute Monocytes 0.9 10^3/uL (0.1-0.6); Absolute Neutrophils 11.3 10^3/uL (1.4-6.5); Hematocrit 38.4 % (37.0-47.0); Mean Corp Hgb Conc. 36.5 g/dL (33.0-37.0); Mean Corpuscular Hgb 31.6 pg (27.0-31.0); Mean Corpuscular Volume 86.7 fL (81.0-99.0); Nucleated Red Blood Cells % 0 %; Platelet Count 305 10^3/uL (130-400); Red Blood Cell Count 4.43 10^6/uL (4.20-5.40); Red Cell Dist. Width 13.2 % (11.5-14.5); White Blood Cell Count 13.6 10^3/uL (4.8-10.8)
[2024-05-07 07:26] LABS: ALT (SGPT) 44 U/L (0-35); AST (SGOT) 39 U/L (14-36); Albumin 4.6 g/dl (3.5-5.0); Alkaline Phosphatase 93 U/L (38-126); Blood Urea Nitrogen 24 mg/dl (7-17); Calcium 9.5 mg/dl (8.4-10.2); Carbon Dioxide 27 mmol/L (22-30); Chloride 99 mmol/L (98-107); Estimated Creatinine Clearance 121 ml/min; Glucose 206 mg/dl (70-99); Potassium 3.1 mmol/L (3.5-5.1); Sodium 136 mmol/L (135-145); Total Bilirubin 1.2 mg/dl (0.2-1.3); Total Protein 7.1 g/dl (6.3-8.2); eGFR > 60.00
[2024-05-07] MEDS: HALDOL 2 MG IV (07:58)
[2024-05-07 08:19] LABS: Urine Albumin 1+ (Neg - Trace); Urine Bilirubin Negative (Negative); Urine Character Clear (Clear); Urine Color Yellow; Urine Glucose Negative (Negative); Urine Ketone 3+ (Negative); Urine Leukocyte Negative (Negative); Urine Nitrite Negative (Negative); Urine Occult Blood Trace (Negative); Urine Urobilinogen 2+ (Neg - 1+)
[2024-05-07 08:38] LABS: Urine Squamous Cell >30 /LPF (Few)
[2024-05-07 08:43] LABS: Urine White Cell 0-2 /HPF (0-5)
[2024-05-07] MEDS: KCL ELIXIR 40 MEQ PO (10:02)
[2024-05-07 10:10] VITALS: BP 126/62
== END 2024-05-07 10:13 | disposition home or self-care (01) ==
LOC: EMR 05:39
PROVIDERS: EMERGENCY PHYSICIAN Emergency Medicine; FAMILY PHYSICIAN Nurse Practitioner Family
DX: R11.2 Nausea with vomiting, unspecified (principal); R10.10 Upper abdominal pain, unspecified; R30.0 Dysuria; E87.6 Hypokalemia; M54.9 Dorsalgia, unspecified; F41.9 Anxiety disorder, unspecified; F12.90 Cannabis use, unspecified, uncomplicated; E11.9 Type 2 diabetes mellitus without complications; J45.909 Unspecified asthma, uncomplicated; Z79.4 Long term (current) use of insulin; Z88.8 Allergy status to other drugs, medicaments and biological substances
CPT/HCPCS: 99284; 96374; 80053; 81003; 81015; 85025

== ENCOUNTER 2024-07-18 13:34 | Emergency (ER) | payer OTHER, SELFPAY ==
[2024-07-18 13:36] VITALS: BP 173/96
[2024-07-18 14:54] VITALS: BP 175/95
[2024-07-18 15:00] VITALS: BP 157/95
--- NOTE | 2024-07-18 15:20 | ED.GENMED ---
History of Present Illness
General
Chief Complaint: Abdominal Symptoms
Time Seen by Provider: 07/18/24 15:02
History of Present Illness
History of Present Illness:
38-year-old female presents the emergency department for evaluation of lower abdominal pain and intractable vomiting beginning last night. Has a history of similar occurring multiple times this year. Has been advised this may be cannabinoid
hyperemesis however the patient states she has not used any cannabinoids in the past 3 to 4 days and also denies any improvement with warm showers. No fevers or chills
Past History
Past History
ED Past Medical History: Asthma, IDDM, Psychiatric and Other (Stopped Methadone 2 years ago, denies illicit drug use)
ED Past Surgical History:
Patient has exhibited threatening behavior?: Yes
Date of threatening behavior? (updated with each occurrence): 07/17/19 (making threats to staff and police)
Social History
Tobacco: Non-smoker
Alcohol: None
Drug: Marijuana
Personal: Single
Living: with family
Employment: Not employed
Review of Systems
Review of Systems
Allergies reviewed?: Yes
All Other Systems: ROS reviewed and negative except as documented in HPI and ROS
Phy Exam
Physical Exam
Physical Exam:
GEN: Anxious, writhing, histrionic appearance
HEENT: Oral mucosa moist, no scleral icterus
Cardiac: Mildly tachycardic, regular
Lung: No respiratory distress, no tachypnea
Abdomen: Soft, grossly nontender
MSK: No gross deformity or injuries
Skin: Good color, no pallor or jaundice, no rashes
Neuro: AO x3, moves all extremities freely
Psych: Calm, cooperative
Course
Orders/Labs/Results
Orders:
Orders
07/18/24 15:16
Acetone [B-Hydroxybutyrate] Urgent
CBC/With Diff [Complete Blood Count/With Diff] Urgent
CMP [Comprehensive Metabolic Panel] Urgent
Lipase Urgent
07/18/24 15:19
Trimethobenzamide [Tigan] 200 mg IM NOW STA
07/18/24 15:20
Electrocardiogram (*1) Urgent
Reason for Study: QTc Monitoring
EKG- Treatment ONCE
Lactated Ringers [Lr] 1,000 ml IV BOLUS
07/18/24 15:23
Venous Blood Gas Urgent
%Oxygen/Room Air: 100
07/18/24 15:38
Urinalysis Reflex To Culture Urgent
Date Specimen was Collected: 07/18/24
Time Specimen was Collected: 15:37
Urine Microscopic Reflex Cult Urgent
07/18/24 16:11
Haloperidol Lactate [Haldol] 2 mg IV NOW STA
07/18/24 16:29
EKG- Treatment ONCE
07/18/24 18:21
Haloperidol Lactate [Haldol] 1 mg IV NOW STA
Abnormal Lab Results
07/18/24 07/18/24 07/18/24
15:16 15:23 15:38
WBC 13.7 H 10^3/uL
(4.8-10.8)
Abs Immat Gran (auto) 0.1 H 10^3/uL
(0-0.05)
Absolute Neuts (auto) 12.3 H 10^3/uL
(1.4-6.5)
Absolute Lymphs (auto) 0.8 L 10^3/uL
(1.2-3.4)
Immature Gran % 1.0 H %
(0-0.5)
Neutrophils % 89.4 H %
(42.2-75.2)
Lymphocytes % 5.8 L %
(20.5-51.1)
VBG pH 7.62 H*
(7.32-7.43)
VBG pCO2 21 L mmHg
(35-48)
VBG pO2 114 H mmHg
(30-50)
VBG HCO3 21.6 L mmol/L
(22-27)
Carbon Dioxide 19 L mmol/L
(22-30)
Glucose 303 H mg/dl
(70-99)
AST 39 H U/L
(14-36)
ALT 50 H U/L
(0-35)
Albumin 5.1 H g/dl
(3.5-5.0)
Urine Ketones 3+ A
(Negative)
Ur Occult Blood Reflex 2+ A
(Negative)
Urine RBC 3-6 A /HPF
(0-2)
Urine Glucose 3+ A
(Negative)
Urine Albumin (Reflex) 1+ A
(Neg - Trace)
07/18/24 15:16
07/18/24 15:16
Vital Signs
Initial and Last Documented VS:
Initial Vital Signs
Temp Pulse Resp BP Pulse Ox
98.3 F 105 16 173/96 98
07/18/24 13:36 07/18/24 13:36 07/18/24 13:36 07/18/24 13:36 07/18/24 13:36
Last Documented Vital Signs
Temp Pulse Resp BP Pulse Ox
98.0 F 115 25 147/84 99
07/18/24 18:49 07/18/24 17:45 07/18/24 17:45 07/18/24 17:00 07/18/24 17:45
MDM/Problems Addressed
MDM/Problems Addressed:
Patient was treated with IV fluids and antiemetics, ultimately haloperidol seem to have good improvement of her symptoms. Cannabinoid hyperemesis is still considered. Her symptoms resolved after treatment and thus there is no indication for CT of
the abdomen pelvis. Discussed further supportive care, would not recommend avoidance of cannabinoids given her medical need for this
*Critical Care Note
Total Time (30-74mins, 75-104mins- exclusive of procedures): Not Applicable
ED Attending Note
-
Portions of this chart may have been created with voice recognition software.� Occasional wrong word or��sound alike� substitutions may have occurred due to the inherent limitations of voice recognition software.
Discharge Plan
Departure
Patient Disposition: Home (Routine Discharge)
Date of Disposition: 07/18/24
Time of Disposition: 17:40
Patient with high blood pressure during this ER visit?: No
Discharge Problem:
Cyclical vomiting
Instructions: Cannabis hyperemesis syndrome
Prescriptions:
New
promethazine 25 mg tablet
25 mg PO TID PRN (Reason: nausea and vomiting) Qty: 10 0RF
No Action
atorvastatin 10 mg Tablet
10 mg PO DAILY
pregabalin 150 mg Capsule
150 mg PO BID
Abilify Maintena 400 mg suspension,extended rel syring
400 mg IM Q3W
amlodipine [Norvasc] 5 mg tablet
5 mg PO DAILY Qty: 30 0RF
pantoprazole [Protonix] 40 mg Tablet,Delayed Release (Dr/Ec)
40 mg PO DAILY
Motegrity 2 mg Tablet
2 mg PO DAILY
Medical Marijuana
2 - 3 puff inhalation DAILYPRN PRN (Reason: anxiety)
Patient Own Insulin Pump
0 units SC .VIA PUMP NOVOLOG
promethazine 25 mg Suppository
25 mg [place] TIDPRN PRN (Reason: nausea)
cholecalciferol (vitamin D3) [Vitamin D3] 125 mcg (5,000 unit) Tablet
125 mcg PO DAILY
losartan 50 mg tablet
50 mg PO DAILY
Referrals:
Josephine Mcdowell CRNP [Family Provider] -
Mesha Tai MD [Active] -
Interventions
Interventions:
*Risk Screen - Suicide Last Done: 07/18/24 13:36
*General Assessment Last Done: 07/18/24 13:36
*Neglect/Abuse Screening Last Done: 07/18/24 13:36
ED- Fall Risk Assessment Last Done: 07/18/24 14:52
*ED COVID-19 Vaccine History Last Done: 07/18/24 14:52
*Nursing Disposition Last Done: 07/18/24 18:59
[facility]-Lzpzs[facility]ocr Assessment Last Done: 07/18/24 14:52
Discharge Date and Time
Discharge Date/Time: 07/18/24 19:03
Print Language: BELARUSIAN
[2024-07-18] MEDS: TIGAN 200 MG IM (15:33)
[2024-07-18 15:34] LABS: Venous Blood Gas B.E. 2.4 mmol/L (-4 to +4); Venous Blood Gas HCO3 21.6 mmol/L (22-27); Venous Blood Gas O2 Sat % 98.8 %; Venous Blood Gas pCO2 21 mmHg (35-48); Venous Blood Gas pO2 114 mmHg (30-50)
[2024-07-18] MEDS: LR 1000 IV (15:34)
[2024-07-18 15:36] LABS: Venous Blood Gas pH 7.62 (7.32-7.43)
[2024-07-18 15:38] LABS: % Basophils 0.4 % (0-2); % Eosinophils 0.1 % (0-6); % Lymphocytes 5.8 % (20.5-51.1); % Monocytes 3.3 % (1.7-9.3); % Neutrophils 89.4 % (42.2-75.2); Absolute Basophils 0.1 10^3/uL (0-0.2); Absolute Immature Granulocytes 0.1 10^3/uL (0-0.05); Absolute Lymphocytes 0.8 10^3/uL (1.2-3.4); Absolute Monocytes 0.5 10^3/uL (0.1-0.6); Absolute Neutrophils 12.3 10^3/uL (1.4-6.5); Hematocrit 39.1 % (37.0-47.0); Hemoglobin 14.2 g/dL (12.0-16.0); Mean Corp Hgb Conc. 36.3 g/dL (33.0-37.0); Mean Corpuscular Hgb 30.9 pg (27.0-31.0); Mean Platelet Volume 10.3 fL (7.4-10.4); Nucleated Red Blood Cells % 0 %; Platelet Count 323 10^3/uL (130-400); Red Cell Dist. Width 12.3 % (11.5-14.5); White Blood Cell Count 13.7 10^3/uL (4.8-10.8)
[2024-07-18 15:53] LABS: Urine Albumin 1+ (Neg - Trace); Urine Bilirubin Negative (Negative); Urine Character Clear (Clear); Urine Color Yellow; Urine Glucose 3+ (Negative); Urine Ketone 3+ (Negative); Urine Leukocyte Negative (Negative); Urine Nitrite Negative (Negative); Urine Occult Blood 2+ (Negative); Urine Urobilinogen Negative (Neg - 1+)
[2024-07-18 15:55] LABS: AST (SGOT) 39 U/L (14-36); Albumin 5.1 g/dl (3.5-5.0); Alkaline Phosphatase 98 U/L (38-126); Blood Urea Nitrogen 16 mg/dl (7-17); Calcium 9.9 mg/dl (8.4-10.2); Carbon Dioxide 19 mmol/L (22-30); Chloride 101 mmol/L (98-107); Glucose 303 mg/dl (70-99); Lipase 63 U/L (23-300); Potassium 3.8 mmol/L (3.5-5.1); Sodium 139 mmol/L (135-145); Total Bilirubin 0.8 mg/dl (0.2-1.3); Total Protein 8.1 g/dl (6.3-8.2); eGFR > 60.00
[2024-07-18 16:05] LABS: ALT (SGPT) 50 U/L (0-35)
[2024-07-18] MEDS: HALDOL 2 MG IV (16:21)
[2024-07-18 17:00] VITALS: BP 147/84
[2024-07-18 17:00] LABS: Urine White Cell 0-2 /HPF (0-5)
[2024-07-18] MEDS: HALDOL 1 MG IV (18:23)
== END 2024-07-18 19:03 | disposition home or self-care (01) ==
LOC: EMR 13:34
PROVIDERS: Physician Assistant; EMERGENCY PHYSICIAN Student in an Organized Health Care Education/Training Program; FAMILY PHYSICIAN Nurse Practitioner Family
DX: R11.15 Cyclical vomiting syndrome unrelated to migraine (principal); E11.9 Type 2 diabetes mellitus without complications; J45.909 Unspecified asthma, uncomplicated; Z79.4 Long term (current) use of insulin
CPT/HCPCS: 96374; 96376; 96361; 96372; 99284; 80053; 81003; 81015; 82010; 82805; 83690; 85025; 93005

== ENCOUNTER 2024-07-19 15:27 | Emergency (ER) | payer OTHER, SELFPAY ==
[2024-07-19 15:29] VITALS: BP 156/97
[2024-07-19 16:06] LABS: HCG, Serum Qualitative Screen Negative
[2024-07-19 16:09] LABS: ALT (SGPT) 39 U/L (0-35); AST (SGOT) 34 U/L (14-36); Albumin 5.1 g/dl (3.5-5.0); Alkaline Phosphatase 99 U/L (38-126); Blood Urea Nitrogen 25 mg/dl (7-17); Calcium 9.8 mg/dl (8.4-10.2); Carbon Dioxide 26 mmol/L (22-30); Chloride 98 mmol/L (98-107); Glucose 230 mg/dl (70-99); Lipase 46 U/L (23-300); Potassium 3.3 mmol/L (3.5-5.1); Sodium 140 mmol/L (135-145); Total Bilirubin 1.1 mg/dl (0.2-1.3); Total Protein 8.2 g/dl (6.3-8.2); eGFR > 60.00
[2024-07-19 16:20] LABS: % Basophils 0.2 % (0-2); % Immature Granulocytes 0.5 % (0-0.5); % Lymphocytes 6.1 % (20.5-51.1); % Monocytes 4.7 % (1.7-9.3); % Neutrophils 88.5 % (42.2-75.2); Absolute Immature Granulocytes 0.1 10^3/uL (0-0.05); Absolute Lymphocytes 1.3 10^3/uL (1.2-3.4); Absolute Neutrophils 18.6 10^3/uL (1.4-6.5); Hematocrit 39.4 % (37.0-47.0); Hemoglobin 14.2 g/dL (12.0-16.0); Mean Corpuscular Hgb 30.7 pg (27.0-31.0); Mean Corpuscular Volume 85.1 fL (81.0-99.0); Mean Platelet Volume 10.1 fL (7.4-10.4); Nucleated Red Blood Cells % 0 %; Platelet Count 326 10^3/uL (130-400); Red Blood Cell Count 4.63 10^6/uL (4.20-5.40); Red Cell Dist. Width 12.6 % (11.5-14.5)
[2024-07-19 16:57] VITALS: BMI 31.3
[2024-07-19 16:59] VITALS: BP 153/104
--- NOTE | 2024-07-19 18:25 | ED.GENMED ---
History of Present Illness
<DMITRI Srivastava - Last Filed: 07/20/24 00:09>
General
Chief Complaint: Abdominal Symptoms
Source: patient
Time Seen by Provider: 07/19/24 17:52
History of Present Illness
History of Present Illness:
A 38 yo female with a PMH of Bipolar disorder, panic disorder, substance b, suicidal ideation, PTSD, BPP, asthma, neuropathy presents to the ED for abdominal pain and vomiting. She was previously here yesterday on 07/18/2024 for abdominal pain and
vomiting to which she was worked up for Cannibis hyperemesis and was given haloperidol with relief of sxs. She admits to multiple episodes of similar pain that usually last 4-5 days sometimes longer before going away on its own. She returns today
stating that as she got home the abdominal pain, nausea, and vomiting returned. She states that she has vomited multiple times since going home. She states they are 'green' in color. Her pain is periumbilical and epigastric in nature without
radiation. She states that she also feels feverish and chills, but has presented but is curently afebrile. She denies Chest pain, shortness of breath, dizziness, TAYLOR.
Past History
<DMITRI Srivastava - Last Filed: 07/20/24 00:09>
Past History
ED Past Medical History: Asthma, IDDM, Psychiatric and Other (Stopped Methadone 2 years ago, denies illicit drug use)
ED Past Surgical History:
Patient has exhibited threatening behavior?: Yes
Date of threatening behavior? (updated with each occurrence): 07/17/19 (making threats to staff and police)
Social History
Tobacco: Non-smoker
Alcohol: None
Drug: Marijuana
Personal: Single
Living: with family
Employment: Not employed
Review of Systems
<DMITRI Srivastava - Last Filed: 07/20/24 00:09>
Review of Systems
All Other Systems: ROS reviewed and negative except as documented in HPI and ROS
Phy Exam
<DMITRI Srivastava - Last Filed: 07/20/24 00:09>
General Physical Exam
General Presentation: moderate distress and other (tearful, flushed, and appears frustrated)
General age: appears stated age
General Skin: warm and flushed
General Habitus: obese
General Mental: tearful
General Hydration: dry mucous membranes (and dry tongue )
Cardiovascular Exam
Cardiovascular Exam: no gallop, no murmur, normal peripheral pulses and tachycardia
Pulmonary Exam
Pulmonary Exam: lungs clear, no respiratory distress, no rales, no crackles, no rhonchi, no wheezing and no cough
Gastrointestinal Exam
Gastrointestinal Exam: normal bowel sounds, soft and non distended
Palpation: generalized: Moderate tenderness (epigastric pain / barbra umbilical pain)
Psychiatric Exam
Psychiatric Exam: anxious and other (histrionic personality )
Course
<DMITRI Srivastava - Last Filed: 07/20/24 00:09>
Orders/Labs/Results
Orders:
Orders
07/19/24 15:32
Test Result ONCE
07/19/24 15:41
Complete Blood Count/With Diff Urgent
Comprehensive Metabolic Panel Urgent
HCG, Serum Qualitative Screen Urgent
Comment: Notify provider if positive test present
Lipase Urgent
07/19/24 18:31
Abdomen/Pelvis w Contrast CT [CT Abd/pelvis W Iv Cont] Urgent
Comment:
Reason For Exam: epigastric and periumbilical pain
07/19/24 19:10
0.9% Sodium Chloride 1000 ml [Nss] 1,000 ml IV BOLUS
07/19/24 19:11
Ondansetron Injectable [Zofran] 4 mg IV NOW STA
07/19/24 19:30
Trimethobenzamide [Tigan] 200 mg IM NOW STA
Abnormal Lab Results
07/19/24
15:41
WBC 21.0 H 10^3/uL
(4.8-10.8)
Abs Immat Gran (auto) 0.1 H 10^3/uL
(0-0.05)
Absolute Neuts (auto) 18.6 H 10^3/uL
(1.4-6.5)
Absolute Monos (auto) 1.0 H 10^3/uL
(0.1-0.6)
Neutrophils % 88.5 H %
(42.2-75.2)
Lymphocytes % 6.1 L %
(20.5-51.1)
Potassium 3.3 L mmol/L
(3.5-5.1)
BUN 25 H mg/dl
(7-17)
Glucose 230 H mg/dl
(70-99)
ALT 39 H U/L
(0-35)
Albumin 5.1 H g/dl
(3.5-5.0)
07/19/24 15:41
07/19/24 15:41
Vital Signs
Initial and Last Documented VS:
Initial Vital Signs
Temp Pulse Resp BP Pulse Ox
98.3 F 115 16 156/97 98
07/19/24 15:29 07/19/24 15:29 07/19/24 15:29 07/19/24 15:29 07/19/24 15:29
Last Documented Vital Signs
Temp Pulse Resp BP Pulse Ox
98.0 F 98 18 167/105 98
07/19/24 19:26 07/19/24 21:12 07/19/24 21:12 07/19/24 21:12 07/19/24 19:28
Willilt;Luis Lal, - Last Filed: 07/19/24 21:54>
Orders/Labs/Results
Orders:
Orders
07/19/24 15:32
Test Result ONCE
07/19/24 15:41
Complete Blood Count/With Diff Urgent
Comprehensive Metabolic Panel Urgent
HCG, Serum Qualitative Screen Urgent
Comment: Notify provider if positive test present
Lipase Urgent
07/19/24 18:31
Abdomen/Pelvis w Contrast CT [CT Abd/pelvis W Iv Cont] Urgent
Comment:
Reason For Exam: epigastric and periumbilical pain
07/19/24 19:10
0.9% Sodium Chloride 1000 ml [Nss] 1,000 ml IV BOLUS
07/19/24 19:11
Ondansetron Injectable [Zofran] 4 mg IV NOW STA
07/19/24 19:30
Trimethobenzamide [Tigan] 200 mg IM NOW STA
Abnormal Lab Results
07/19/24
15:41
WBC 21.0 H 10^3/uL
(4.8-10.8)
Abs Immat Gran (auto) 0.1 H 10^3/uL
(0-0.05)
Absolute Neuts (auto) 18.6 H 10^3/uL
(1.4-6.5)
Absolute Monos (auto) 1.0 H 10^3/uL
(0.1-0.6)
Neutrophils % 88.5 H %
(42.2-75.2)
Lymphocytes % 6.1 L %
(20.5-51.1)
Potassium 3.3 L mmol/L
(3.5-5.1)
BUN 25 H mg/dl
(7-17)
Glucose 230 H mg/dl
(70-99)
ALT 39 H U/L
(0-35)
Albumin 5.1 H g/dl
(3.5-5.0)
07/19/24 15:41
07/19/24 15:41
Vital Signs
Initial and Last Documented VS:
Initial Vital Signs
Temp Pulse Resp BP Pulse Ox
98.3 F 115 16 156/97 98
07/19/24 15:29 07/19/24 15:29 07/19/24 15:29 07/19/24 15:29 07/19/24 15:29
Last Documented Vital Signs
Temp Pulse Resp BP Pulse Ox
98.0 F 98 18 167/105 98
07/19/24 19:26 07/19/24 21:12 07/19/24 21:12 07/19/24 21:12 07/19/24 19:28
<DMITRI Srivastava - Last Filed: 07/20/24 00:09>
MDM/Problems Addressed
Differential Diagnosis Includes:
Cannibis hyperemesis syndrome, gastroenteritis, appendicitis
<DMITRI Srivastava - Last Filed: 07/20/24 00:09>
*Critical Care Note
Total Time (30-74mins, 75-104mins- exclusive of procedures): Not Applicable
<Luis Lal DO - Last Filed: 07/19/24 21:54>
Update Note
Update Note:
Patient refuses Compazine or Zofran. She has had Reglan in the past.
ED Attending Note
<DMITRI Srivastava - Last Filed: 07/20/24 00:09>
-
Portions of this chart may have been created with voice recognition software.� Occasional wrong word or��sound alike� substitutions may have occurred due to the inherent limitations of voice recognition software.
<Luis Lal DO - Last Filed: 07/19/24 21:54>
ED Attending Note
Patient seen and examined by attending physician: Yes
I performed the substantive portion of visit, reviewed & personally made and approve the management plan that is documented in note by myself or ERIC.: Yes
ED Attending Note:
Pleasant 38-year-old female presents with diffuse abdominal pain with nausea. Patient was seen in the emergency department yesterday for similar symptoms. Patient was diagnosed with cyclical vomiting with the possibility of cannabinoid
hyperemesis. Patient has admitted to smoking marijuana in the recent past but none in the last for 5 days. Patient was seen in conjunction with the PA student. I have reviewed and agree with the history and treatment plan presented. On my
independent physical exam, patient is awake, alert, and oriented x3, nontoxic-appearing. Minimal acute distress. No respiratory distress. Heart is regular rate and rhythm. Abdomen soft with diffuse tenderness to palpation. There is slight
tenderness to palpation in the right lower quadrant in the periumbilical region. This is not consistent with McBurney's point tenderness at this time. Moves all 4 extremities. Skin is warm and dry.
Discharge Plan
Departure
Patient Disposition: Home (Routine Discharge)
Date of Disposition: 07/19/24
Time of Disposition: 21:31
Patient with high blood pressure during this ER visit?: Yes
Condition: Good
Discharge Problem:
Intractable nausea and vomiting
Instructions: Clear Liquid Diet, Nausea and Vomiting, Adult (DC), Abdominal Pain, BLOOD PRESSURE
Prescriptions:
New
promethazine 25 mg tablet
25 mg PO Q6H PRN (Reason: nausea and vomiting) Qty: 14 0RF
No Action
atorvastatin 10 mg Tablet
10 mg PO DAILY
pregabalin 150 mg Capsule
150 mg PO BID
Abilify Maintena 400 mg suspension,extended rel syring
400 mg IM Q3W
amlodipine [Norvasc] 5 mg tablet
5 mg PO DAILY Qty: 30 0RF
pantoprazole [Protonix] 40 mg Tablet,Delayed Release (Dr/Ec)
40 mg PO DAILY
Motegrity 2 mg Tablet
2 mg PO DAILY
Medical Marijuana
2 - 3 puff inhalation DAILYPRN PRN (Reason: anxiety)
Patient Own Insulin Pump
0 units SC .VIA PUMP NOVOLOG
promethazine 25 mg Suppository
25 mg [place] TIDPRN PRN (Reason: nausea)
cholecalciferol (vitamin D3) [Vitamin D3] 125 mcg (5,000 unit) Tablet
125 mcg PO DAILY
losartan 50 mg tablet
50 mg PO DAILY
promethazine 25 mg tablet
25 mg PO TID PRN (Reason: nausea and vomiting) Qty: 10 0RF
Referrals:
Nicholas Avila DO [Family Provider] -
Activity Restrictions/Additional Instructions:
Your Phenergan prescription was transmitted to the [facility] pharmacy that you requested
It was a pleasure meeting you and taking part in your care. We hope for your continued healing and wellness.
Please read discharge instructions in their entirety. However, they are for general education and may not describe your exact diagnosis at discharge. Information on your ER visit and medical conditions were discussed with you along with appropriate
follow up information...
If indicated, please take your medications as instructed and indicated on discharge paperwork.
Please schedule a follow up appointment as directed. Call to schedule an appointment
Please return to the emergency department with ANY change in, persisting, or worsening of symptoms. If any of your symptoms do not improve, or persist, or become more severe within 6-12 hours, please return to the emergency department for further
care.
Please return to the emergency department if you develop a headache, neck pain/stiffness, fever greater than 100.4F, chest pain, shortness of breath, persistent nausea, vomiting, slurred speech, difficulty walking, numbness/tingling, weakness, signs
of infection or any other symptoms that are worrisome to you.
If you have any questions or concerns please do not hesitate to call the Hospital at or E-mail me directly at [email or web address]
Interventions
Interventions:
*Risk Screen - Suicide Last Done: 07/19/24 15:29
*General Assessment Last Done: 07/19/24 15:29
*Neglect/Abuse Screening Last Done: 07/19/24 15:29
*ED COVID-19 Vaccine History Last Done: 07/19/24 16:57
*Nursing Disposition Last Done: 07/19/24 22:02
ZS-Bwsykn-[id number] Assessment Last Done: 07/19/24 16:58
Discharge Date and Time
Discharge Date/Time: 07/19/24 22:02
Print Language: CHILEAN
[2024-07-19] MEDS: NSS 1000 IV (19:27)
[2024-07-19 19:28] VITALS: BP 154/98
[2024-07-19] MEDS: TIGAN 200 MG IM (19:51)
[2024-07-19 21:12] VITALS: BP 167/105
== END 2024-07-19 22:02 | disposition home or self-care (01) ==
LOC: EMR 15:27
PROVIDERS: Emergency Medicine; EMERGENCY PHYSICIAN Student in an Organized Health Care Education/Training Program; FAMILY PHYSICIAN Family Medicine
DX: R11.2 Nausea with vomiting, unspecified (principal); R10.13 Epigastric pain; R10.33 Periumbilical pain; E11.9 Type 2 diabetes mellitus without complications; J45.909 Unspecified asthma, uncomplicated; Z79.4 Long term (current) use of insulin
CPT/HCPCS: 96372; 96360; 99284; 74177; 80053; 83690; 84703; 85025; Q9967

== ENCOUNTER → 2024-07-24 07:53 | Outpatient (REF) | payer OTHER, SELFPAY | LOC: RAD 07:53 | PROVIDERS: ATTENDING PHYSICIAN Internal Medicine Gastroenterology; FAMILY PHYSICIAN Nurse Practitioner Family | DX: R11.10 Vomiting, unspecified (principal) | CPT/HCPCS: 78264; A9541 ==

== ENCOUNTER → 2024-09-15 08:08 | Outpatient (REF) | payer OTHER, SELFPAY | LOC: HWRAD 08:08 | PROVIDERS: ATTENDING PHYSICIAN Obstetrics & Gynecology; FAMILY PHYSICIAN Nurse Practitioner Family; PRIMARYCARE PHYSICIAN Family Medicine | DX: N83.201 Unspecified ovarian cyst, right side (principal) | CPT/HCPCS: 76830; 76856 ==